=== PATIENT | male | born 1945 | race American Indian/Alaskan Native ===

== ENCOUNTER 2016-07-02 10:54 | Outpatient (CLI) | payer MEDICARE, OTHER ==
--- NOTE | 2016-07-03 10:45 | Ultrasound Report ---
ULTRASOUND RENAL BILATERAL: HISTORY: Renal insufficiency. FINDINGS: Compared to 03/04/16. The right kidney measures 10.0 cm. The left kidney measures 9.1 cm. There are bilateral simple renal cysts near mid pole measuring approximately 1 cm. No evidence for renal mass, calculus or hydronephrosis. The echotexture in both kidneys is echogenic, which is unchanged. The bladder is partially distended. A prominent prostate gland is noted. IMPRESSION: Findings consistent with medical renal disease or acute renal failure. Small bilateral renal cysts. No change since 03/04/16.
== END 2016-07-02 10:55 | disposition home or self-care (01) ==
LOC: US 10:54
PROVIDERS: ATTEND Urology
DX: D41.02 Neoplasm of uncertain behavior of left kidney (principal); N28.1 Cyst of kidney, acquired; N28.9 Disorder of kidney and ureter, unspecified; N32.89 Other specified disorders of bladder
CPT/HCPCS: 76770

== ENCOUNTER 2016-08-14 11:24 | Outpatient (CLI) | payer MEDICARE, OTHER ==
--- NOTE | 2016-08-14 12:54 | Ultrasound Report ---
RIGHT UPPER QUADRANT ULTRASOUND: HISTORY: Abnormal liver tests, right upper quadrant abdominal pain. Technique: Transabdominal ultrasound imaging with Doppler interrogation. FINDINGS: Multiple tiny gallstones are noted within the gallbladder. No evidence for wall thickening, pericholecystic fluid or distention. The CBD measures 2 mm. Images of the liver parenchyma, pancreas, right kidney and aorta are within normal limits. No perihepatic ascites. IMPRESSION: Cholelithiasis. No findings to suggest acute cholecystitis.
== END 2016-08-14 11:25 | disposition home or self-care (01) ==
LOC: US 11:24
PROVIDERS: ATTEND Internal Medicine Gastroenterology
DX: K80.20 Calculus of gallbladder without cholecystitis without obstruction (principal); R79.89 Other specified abnormal findings of blood chemistry
CPT/HCPCS: 76705

== ENCOUNTER 2017-05-12 09:12 | Outpatient (CLI) | payer MEDICARE, OTHER ==
--- NOTE | 2017-05-12 12:16 | Ultrasound Report ---
ULTRASOUND RENAL BILATERAL HISTORY: Renal cyst. TECHNIQUE: transabdominal ultrasound with color Doppler interrogation. FINDINGS: The right kidney measures 9.4 x 4.5 x 4.4cm. Right renal cortex: 1.1cm. The left kidney measures 9.2 x 6.0 x 4.8cm. Left renal cortex: 1.3cm. The kidneys are normal size, contour and position. There is increased renal parenchymal echotexture bilaterally. Corticomedullary differentiation is preserved. A solitary 1.2 cm simple cyst is noted in the superior right kidney. This has increased from 9 mm on the previous exam. A 1 cm simple cyst in the mid left kidney is unchanged. No evidence for nephrolithiasis, mass, hydronephrosis or perinephric fluid. The views of the bladder and the region of the ureters appear normal. IMPRESSION: Renal parenchymal disease. Simple bilateral renal cysts as described.
== END 2017-05-12 09:13 | disposition home or self-care (01) ==
LOC: US 09:12
PROVIDERS: ATTEND Urology
DX: Q61.00 Congenital renal cyst, unspecified (principal); N28.9 Disorder of kidney and ureter, unspecified
CPT/HCPCS: 76770

== ENCOUNTER 2018-07-22 01:40 | Inpatient (IN) | payer MEDICARE, OTHER ==
[2018-07-22] MEDS ORDERED: ASPIRIN PO ONE (01:46)
[2018-07-22] MEDS ORDERED: TRIDIL DRIP 50MG/250ML 50 MG/250 ML BOTTLE IV SCH (02:00)
[2018-07-22 02:03] LABS: Basophils # (Auto) 0.1 K/mm3 (0.0-0.1); Basophils % (Auto) 0.7 % (0.0-1.8); Eosinophils # (Auto) 0.2 K/mm3 (0.0-0.4); Eosinophils % (Auto) 2.1 % (0.0-4.3); Hemoglobin 14.8 gm/dl (11.8-15.2); Lymphocytes # (Auto) 3.7 K/mm3 (1.2-5.4); Lymphocytes % (Auto) 42.7 % (13.4-35.0); Mean Corpuscular HGB Conc 33 % (32-34); Mean Corpuscular Volume 93 fl (84-94); Monocytes # (Auto) 0.5 K/mm3 (0.0-0.8); Monocytes % (Auto) 6.4 % (0.0-7.3); Platelet Count 241 K/mm3 (140-440); Red Blood Count 4.87 M/mm3 (3.65-5.03); Red Cell Distribution Width 14.1 % (13.2-15.2)
[2018-07-22 02:13] LABS: INR 0.99 (0.87-1.13)
--- NOTE | 2018-07-22 02:15 | Emergency Department Report ---
ED General Adult HPI - General Chief complaint: Dyspnea/Respdistress Stated complaint: FIDEL Time Seen by Provider: 07/22/18 01:47 Source: patient, family, EMS (verbal report received from EMS.ems notes not available at time of chart dictation), RN notes reviewed, old records reviewed Mode of arrival: Stretcher Limitations: No Limitations, Physical Limitation - History of Present Illness Initial comments: Primary care Dr.: Dr Looney Cardiology: Dr Harrison Nephrology: Dr Richmond Past medical history: Hypertension, pacemaker, atrial fibrillation, on eliquis CK D stage III This is a 72-year-old gentleman who was brought to the hospital by emergency medical services for sudden onset painless shortness of breath after sexual intimacy. Prior to these symptoms, patient reports with his that he was in his usual state of health. Symptoms today included sudden shortness of breath, weakness and wheezing. No DVT or pulmonary embolus risk factors, and indicates compliance with systemic anticoagulation. EMS gave nebulizer therapy in the field, magnesium, and steroids, and initiated CPAP/BiPAP. Upon arrival to the ER, the patient has rales, JVD, is hypertensive to the 230s. He indicates that he is not having pain. He is started on BiPAP therapy, and given 2 g of nitroglycerin intravenously by myself. This, in combination with his BiPAP therapy, and nitroglycerin drip, she medically improved his symptoms. Currently, his blood pressure is in the 110s, and we are down titrating his nitroglycerin drip. He reports feeling much improved. Laboratory studies pending at this time. -: Sudden Consistency: constant Improves with: medication Worsens with: movement Associated Symptoms: cough, loss of appetite, malaise, weakness. denies: confusion, chest pain, diaphoresis, fever/chills, headaches, nausea/vomiting, rash, seizure, shortness of breath - Related Data Home Medications Medication Instructions Recorded Confirmed Last Taken Colchicine 0.5 mg PO BID 06/29/15 06/16/17 06/16/17 Dutasteride (Nf) [Avodart (Nf)] 0.5 mg PO QDAY 06/29/15 06/16/17 06/16/17 Allopurinol [Zyloprim] 100 mg PO QDAY 03/13/16 06/16/17 06/16/17 Ergocalciferol [Vitamin D2] 1 cap PO QWEEK 03/13/16 06/16/17 03/14/16 Apixaban [Eliquis] 5 mg PO DAILY 06/16/17 06/16/17 06/16/17 Cetirizine HCl [ZyrTEC] 10 mg PO DAILY PRN 06/16/17 06/16/17 Unknown Ezetimibe/Simvastatin (Nf) 1 tab PO QHS 06/16/17 06/16/17 06/15/17 [Vytorin 10-40 mg (Nf)] Previous Rx's Medication Instructions Recorded Last Taken Type Carvedilol [Coreg] 6.25 mg PO BID #60 tablet 06/30/15 06/16/17 Rx Allergies Allergy/AdvReac Type Severity Reaction Status Date / Time No Known Allergies Allergy Unverified 06/29/15 13:23 ED Review of Systems ROS: Stated complaint: FIDEL Other details as noted in HPI Comment: Unobtainable due to pts medical conditions Constitutional: denies: fever Respiratory: shortness of breath, wheezing Cardiovascular: denies: chest pain Gastrointestinal: denies: vomiting Genitourinary: denies: dysuria Musculoskeletal: denies: arthralgia Skin: denies: lesions Neurological: weakness ED Past Medical Hx - Past Medical History Hx Hypertension: Yes (EF 55-60%) Hx Heart Attack/AMI: No Hx Congestive Heart Failure: No Hx Diabetes: No Hx Renal Disease: Yes (CKD Stage 3 ) Hx Asthma: No Hx COPD: No Hx HIV: No - Surgical History Hx Pacemaker: Yes - Social History Smoking Status: Never Smoker Substance Use Type: None - Medications Home Medications: Home Medications Medication Instructions Recorded Confirmed Last Taken Type Colchicine 0.5 mg PO BID 06/29/15 06/16/17 06/16/17 History Dutasteride (Nf) [Avodart (Nf)] 0.5 mg PO QDAY 06/29/15 06/16/17 06/16/17 History Carvedilol [Coreg] 6.25 mg PO BID #60 tablet 06/30/15 06/16/17 06/16/17 Rx Allopurinol [Zyloprim] 100 mg PO QDAY 03/13/16 06/16/17 06/16/17 History Ergocalciferol [Vitamin D2] 1 cap PO QWEEK 03/13/16 06/16/17 03/14/16 History Apixaban [Eliquis] 5 mg PO DAILY 06/16/17 06/16/17 06/16/17 History Cetirizine HCl [ZyrTEC] 10 mg PO DAILY PRN 06/16/17 06/16/17 Unknown History Ezetimibe/Simvastatin (Nf) 1 tab PO QHS 06/16/17 06/16/17 06/15/17 History [Vytorin 10-40 mg (Nf)] ED Physical Exam - General Limitations: Physical Limitation General appearance: alert, in distress, obese - Head Head exam: Present: atraumatic, normocephalic - Eye Eye exam: Present: normal appearance, EOMI - ENT ENT exam: Present: normal exam, normal orophraynx, mucous membranes moist - Neck Neck exam: Present: normal inspection, full ROM, other (bilateral 6 cm jugular venous distention is noted bilaterally.). Absent: tenderness, meningismus - Respiratory Respiratory exam: Present: respiratory distress, rales - Cardiovascular Cardiovascular Exam: Present: regular rate, normal rhythm, normal heart sounds. Absent: bradycardia, tachycardia, irregular rhythm, systolic murmur, diastolic murmur, rubs, gallop - GI/Abdominal GI/Abdominal exam: Present: soft. Absent: distended, tenderness, guarding, rebound, rigid, pulsatile mass - Rectal Rectal exam: Present: deferred - Extremities Exam Extremities exam: Present: normal inspection, full ROM, other (2+ pulses noted in the bilateral upper, lower extremities. Compartments soft. No long bony tenderness. The pelvis is stable.). Absent: calf tenderness - Back Exam Back exam: Present: normal inspection, full ROM. Absent: tenderness, CVA tenderness (R), paraspinal tenderness, vertebral tenderness - Neurological Exam Neurological exam: Present: alert, other (Extraocular movements intact. Tongue midline. No facial droop. Facial sensation intact to light touch in the V1, V2, V3 distribution bilaterally. 5 and 5 strength in 4 extremities.. Sensation is intact to light touch in 4 extremities.). Absent: motor sensory deficit - Psychiatric Psychiatric exam: Present: normal affect, normal mood - Skin Skin exam: Present: warm, dry, intact, normal color. Absent: rash ED Course Vital Signs 07/22/18 07/22/18 07/22/18 02:01 02:09 02:12 Pulse Rate 70 69 71 Respiratory 29 H 18 24 Rate Blood Pressure 110/77 111/84 Blood Pressure 111/84 [Right] O2 Sat by Pulse 93 95 94 Oximetry - Reevaluation(s) Reevaluation #1: 07/22/18 02:17 Differential diagnosis, including not limited to: Azotemia, uremia, flash pulmonary edema Assessment and plan: 72-year-old gentleman with sudden onset presumed flash p ulmonary edema after intimate activity, most likely sympathetically mediated. Much improved on BiPAP therapy and nitroglycerin. We are down titrating his nitroglycerin, screening laboratory studies pending, and he will be admitted to the medical service once his laboratory studies have resulted. Reevaluation #2: 07/22/18 02:25 Dr. Herring to admit the patient to the medical service. ED Medical Decision Making - Lab Data Result diagrams: 07/22/18 01:52 07/22/18 01:52 Vital Signs 07/22/18 07/22/18 02:01 02:12 Pulse Rate 70 71 Respiratory 29 H 24 Rate Blood Pressure 110/77 Blood Pressure 111/84 [Right] O2 Sat by Pulse 93 94 Oximetry Lab Results 07/22/18 07/22/18 Range/Units 01:52 01:52 WBC 8.5 (4.5-11.0) K/mm3 RBC 4.87 (3.65-5.03) M/mm3 Hgb 14.8 (11.8-15.2) gm/dl Hct 45.0 (35.5-45.6) % MCV 93 (84-94) fl MCH 30 (28-32) pg MCHC 33 (32-34) % RDW 14.1 (13.2-15.2) % Plt Count 241 (140-440) K/mm3 Lymph % (Auto) 42.7 H (13.4-35.0) % Rooks % (Auto) 6.4 (0.0-7.3) % Eos % (Auto) 2.1 (0.0-4.3) % Baso % (Auto) 0.7 (0.0-1.8) % Lymph # 3.7 (1.2-5.4) K/mm3 Rooks # 0.5 (0.0-0.8) K/mm3 Eos # 0.2 (0.0-0.4) K/mm3 Baso # 0.1 (0.0-0.1) K/mm3 Seg Neutrophils % 48.1 (40.0-70.0) % Seg Neutrophils # 4.1 (1.8-7.7) K/mm3 PT 13.7 (12.2-14.9) Sec. INR 0.99 (0.87-1.13) APTT 23.0 L (24.2-36.6) Sec. - EKG Data -: EKG Interpreted by Me - EKG Data 07/22/18 02:16 Ventricular paced rhythm, good capture, left axis deviation, QTC prolonged, not having chest pain, not consistent with ST elevation myocardial infarction, 96 bp m. Appears unchanged from prior from 2018. - Radiology Data Radiology results: image reviewed interpreted by me: X-ray of the chest shows left-sided ventricular pacer, and flash pulmonary edema. Critical Care Time: Yes Critical care time in (mins) excluding proc time.: 45 Critical care attestation.: If time is entered above; I have spent that time in minutes in the direct care of this critically ill patient, excluding procedure time. ED Disposition Clinical Impression: Flash pulmonary edema Disposition: -09 OP ADMIT IP TO THIS HOSP Is pt being admited?: Yes Condition: Critical Instructions: Pulmonary Edema (ED)
[2018-07-22 02:21] LABS: Calcium 8.9 mg/dL (8.4-10.2)
[2018-07-22] MEDS ORDERED: LASIX IV ONE (02:25)
--- NOTE | 2018-07-22 02:33 | XRay Report ---
FINAL REPORT EXAM: XR CHEST 1V AP HISTORY: cortez/ cp TECHNIQUE: A portable upright view the chest was obtained and compared to the study of 06/16/2017. FINDINGS: The heart size is normal. Mild congestion cannot be excluded. There is extensive patchy airspace dise ase throughout the left lung as well as in the right lung base. There is a pacemaker overlying the le ft chest wall with the leads in the right atrium and right ventricle. The skeletal structures do not show any acute changes. IMPRESSION: Findings compatible either with bilateral pneumonia versus asymmetric pulmonary edema.
[2018-07-22] MEDS ORDERED: ZOFRAN IV PRN (04:23)
[2018-07-22] MEDS ORDERED: SODIUM CHLORIDE FLUSH SYRINGE 10 ML IV PRN (04:23)
--- NOTE | 2018-07-22 04:23 | History and Physical Report ---
History of Present Illness Date of examination: 07/22/18 History of present illness: 72-year-old man history of hypertension, chronic kidney disease, BPH, gout was brought to the emergency room for acute onset of shortness of breath after intimacy. He was found to be hypertensive in the emergency room with systolic blood pressure greater than 250s, respiratory distress, he was placed on BiPAP and started on nitroglycerin drip and given IV Lasix. He improved significantly and was transitioned from BiPAP to nasal cannula Review of systems Constitutional: no weight loss, chills, fever Ears, eyes, nose, mouth and throat: no nasal congestion, no nasal discharge, no sinus pressure, no vision change, no red eye. Neck: No neck pain or rigidity. Cardiovascular: no palpitations, chest pain Respiratory: no cough, +shortness of breath Gastrointestinal: no hematochezia, abdominal pain Genitourinary : no frequency , no hematuria Musculoskeletal: no joint swelling or muscle ache Integumentary: no rash, no pruritis Neurological: no parathesias, no focal weakness Endocrine: no cold or heat intolerance, no polyuria or polydipsia Hematologic/Lymphatic: no easy bruising, no easy bleeding, no gland swelling Allergic/Immunologic: no urticaria, no angioedema. PAST MEDICAL HISTORY: hypertension, chronic kidney disease, BPH, gout PAST SURGICAL HISTORY: Pacemaker SOCIAL HISTORY: Denies alcohol, drugs, tobacco FAMILY HISTORY: Hypertension Medications and Allergies Allergies Allergy/AdvReac Type Severity Reaction Status Date / Time No Known Allergies Allergy Unverified 06/29/15 13:23 Home Medications Medication Instructions Recorded Confirmed Last Taken Type Colchicine 0.5 mg PO BID 06/29/15 06/16/17 06/16/17 History Dutasteride (Nf) [Avodart (Nf)] 0.5 mg PO QDAY 06/29/15 06/16/17 06/16/17 History Carvedilol [Coreg] 6.25 mg PO BID #60 tablet 06/30/15 06/16/17 06/16/17 Rx Allopurinol [Zyloprim] 100 mg PO QDAY 03/13/16 06/16/17 06/16/17 History Ergocalciferol [Vitamin D2] 1 cap PO QWEEK 03/13/16 06/16/17 03/14/16 History Apixaban [Eliquis] 5 mg PO DAILY 06/16/17 06/16/17 06/16/17 History Cetirizine HCl [ZyrTEC] 10 mg PO DAILY PRN 06/16/17 06/16/17 Unknown History Ezetimibe/Simvastatin (Nf) 1 tab PO QHS 06/16/17 06/16/17 06/15/17 History [Vytorin 10-40 mg (Nf)] Active Meds: Active Medications Nitroglycerin/Dextrose (Tridil Drip 50mg/250ml) 50 mg in 250 mls @ 3 mls/hr IV TITR IVÁN; Protocol Last Admin: 07/22/18 02:07 Dose: 80 mcg/min, 24 mls/hr Documented by: Exam - Physical Exam Narrative exam: General Apperance: The patient lying in bed, breathing comfortable HEENT: Normocephalic, atraumatic. Pupils equally round and reactive to light, EOMI, no sclericterus or JVD or thyromegaly or nodule, no carotid bruit, mucous membranes moist, no exudate or erythema Heart: S1-S2, regular is rhythm Lungs: Crackles bilaterally, breathing comfortable Abdomen: Positive bowel sounds, soft, nontender, nondistended, no organomegaly Extremities: No edema cyanosis clubbing Skin: no rash, nodule, warm and dry Neuro: cranial nerves 2-12 intact, speech is fluent, motor/sensory intact - Constitutional Vitals: Temp Pulse Resp BP Pulse Ox 60 16 157/82 97 07/22/18 04:15 07/22/18 04:15 07/22/18 04:15 07/22/18 04:15 Results - Labs CBC & Chem 7: 07/22/18 01:52 07/22/18 01:52 Labs: Abnormal lab results 07/22/18 07/22/18 07/22/18 Range/Units 01:52 01:52 01:52 Lymph % (Auto) 42.7 H (13.4-35.0) % APTT 23.0 L (24.2-36.6) Sec. Sodium 136 L (137-145) mmol/L Carbon Dioxide 21 L (22-30) mmol/L Glucose 256 H (75-100) mg/dL Magnesium (1.7-2.3) mg/dL 07/22/18 Range/Units 01:52 Lymph % (Auto) (13.4-35.0) % APTT (24.2-36.6) Sec. Sodium (137-145) mmol/L Carbon Dioxide (22-30) mmol/L Glucose (75-100) mg/dL Magnesium 2.80 H (1.7-2.3) mg/dL - Imaging and Cardiology Chest x-ray: report reviewed Assessment and Plan Assessment Hypertensive urgency, malignant Flash pulmonary edema chronic kidney disease BPH gout Plan Admit to medicine Continue nitroglycerin drip, start IV Lasix Check cardiac enzymes, echo, consult cardiology Monitor I's and O's, daily weights DVT prophylaxis
[2018-07-22 05:24] LABS: Creatine Kinase MB 5.1 ng/mL (0.0-4.0)
[2018-07-22] MEDS ORDERED: LASIX IV SCH (06:00)
[2018-07-22] MEDS ORDERED: LASIX ONE (06:26)
[2018-07-22] MEDS ORDERED: ASPIRIN ONE (06:52)
[2018-07-22] MEDS ORDERED: COREG ONE (09:28)
[2018-07-22] MEDS ORDERED: COLCHICINE ONE (09:28)
[2018-07-22] MEDS: APRESOLINE PO SCH ×2 (09:32→13:29)
[2018-07-22] MEDS: COLCHICINE PO SCH (09:32)
[2018-07-22] MEDS ORDERED: COREG PO SCH ×2 (10:00→14:48)
[2018-07-22] MEDS ORDERED: DUTASTERIDE 0.5 MG PO SCH (10:00)
[2018-07-22] MEDS ORDERED: LOVENOX SUB-Q SCH ×2 (10:00)
[2018-07-22] MEDS ORDERED: ELIQUIS PO SCH (10:00)
[2018-07-22] MEDS ORDERED: COLCHICINE PO SCH (10:00)
[2018-07-22 11:09] LABS: Creatine Kinase MB 5.3 ng/mL (0.0-4.0)
[2018-07-22] MEDS: SODIUM CHLORIDE FLUSH SYRINGE 10 ML IV SCH ×2 (12:15→22:07)
--- NOTE | 2018-07-22 12:55 | Consultation ---
<RADHA AGUILAR - Last Filed: 07/22/18 13:09> History of Present Illness Consult date: 07/22/18 Requesting physician: ROS GALEANO Consult reason: congestive heart failure History of present illness: The pt is a 72YO male with a past medical history of HTN, HLP, PPM, atrial fibrillation, anticoagulated with Eliquis, , gout, renal insufficiency. He is followed in our office by Dr. Harrison. He presented with complaints of SOB. CXR c/w pulmonary edema. BPs significantly elevated on admission and thus he was initiated on nitro gtt. He denies any chest pain, palpitations, n/v, diaphoresis, dizziness or syncope. Echo done 07/2017 showed EF 50-55%, grade 1 diastolic dysfunction, minimal MR, mild AR, mod TR, RVSP 42mmHg. PET MPI done 01/2018 was negative for ischemia, EF 47% at rest and 52% stress. Past History Past Medical History: atrial fib, hypertension, hyperlipidemia Past Surgical History: Other (PPM) Medications and Allergies Allergies Allergy/AdvReac Type Severity Reaction Status Date / Time No Known Allergies Allergy Unverified 06/29/15 13:23 Home Medications Medication Instructions Recorded Confirmed Last Taken Type Dutasteride (Nf) [Avodart (Nf)] 0.5 mg PO QDAY 06/29/15 07/22/18 06/16/17 History Carvedilol [Coreg] 6.25 mg PO BID #60 tablet 06/30/15 07/22/18 06/16/17 Rx Apixaban [Eliquis] 5 mg PO Q12H 06/16/17 07/22/18 06/16/17 History Alfuzosin HCl [Alfuzosin HCl ER] 10 mg PO QDAY 07/22/18 07/22/18 Unknown History Mirtazapine 7.5 mg PO HS 07/22/18 07/22/18 Unknown History Active Meds: Active Medications Acetaminophen (Tylenol) 650 mg PO Q4H PRN PRN Reason: Pain MILD(1-3)/Fever >100.5/[facility]OS Allopurinol (Zyloprim) 100 mg PO QDAY [facility] Apixaban (Eliquis) 5 mg PO DAILY [facility]; Protocol Last Admin: 07/22/18 11:28 Dose: 5 mg Documented by: Carvedilol (Coreg) 6.25 mg PO BID [facility] Last Admin: 07/22/18 09:32 Dose: 6.25 mg Documented by: Colchicine (Colchicine) 0.6 mg PO BID [facility] Last Admin: 07/22/18 09:32 Dose: 0.6 mg Documented by: Ezetimibe (Zetia) 10 mg PO QHS [facility] Ergocalciferol (Vitamin D2) 50,000 unit PO Mo [facility] Furosemide (Lasix) 40 mg IV DAILY [facility] Hydralazine HCl (Apresoline) 50 mg PO Q8HR [facility] Last Admin: 07/22/18 09:32 Dose: 50 mg Documented by: Nitroglycerin/Dextrose (Tridil Drip 50mg/250ml) 50 mg in 250 mls @ 3 mls/hr IV TITR [facility]; Protocol Last Admin: 07/22/18 02:07 Dose: 80 mcg/min, 24 mls/hr Documented by: Miscellaneous Medication (Dutasteride (Nf)) 0.5 mg PO QDAY [facility] Ondansetron HCl (Zofran) 4 mg IV Q8H PRN PRN Reason: Nausea And Vomiting Pravastatin Sodium (Pravachol) 80 mg PO QHS [facility] Sodium Chloride (Sodium Chloride Flush Syringe 10 Ml) 10 ml IV BID [facility] Last Admin: 07/22/18 12:15 Dose: 10 ml Documented by: Sodium Chloride (Sodium Chloride Flush Syringe 10 Ml) 10 ml IV PRN PRN PRN Reason: LINE FLUSH Review of Systems Constitutional: no weight loss, no weight gain, no fever, no chills, no sweats Ears, nose, mouth and throat: no ear pain, no nose pain, no sinus pressure, no sinus pain Cardiovascular: shortness of breath, high blood pressure, no chest pain, no palpitations, no rapid/irregular heart beat, no edema, no syncope, no lightheadedness, no leg edema Respiratory: shortness of breath, no cough, no congestion, no wheezing, no pain on inspiration Gastrointestinal: no abdominal pain, no nausea, no vomiting, no diarrhea, no constipation, no change in bowel habits Genitourinary Male: no dysuria, no hematuria, no flank pain, no discharge, no urinary frequency, no urinary hesitancy Musculoskeletal: no neck stiffness, no neck pain, no shooting arm pain, no arm numbness/tingling, no low back pain, no shooting leg pain Integumentary: no rash, no pruritis, no redness, no sores, no wounds Neurological: no head injury, no paralysis, no weakness, no parathesias, no numbness, no tingling, no seizures, no syncope Psychiatric: no anxiety Endocrine: no cold intolerance, no heat intolerance Hematologic/Lymphatic: no easy bruising, no easy bleeding Allergic/Immunologic: no urticaria, no wheezing Physical Examination Vital Signs Pulse 72 07/22/18 01:49 General appearance: no acute distress HEENT: Positive: PERRL, Normocephaly, Mucus Membranes Moist Neck: Positive: neck supple, trachea midline Cardiac: Positive: Reg Rate and Rhythm, S1/S2 Lungs: Positive: Decreased Breath Sounds, Rales Neuro: Positive: Grossly Intact Abdomen: Positive: Soft. Negative: Tender Skin: Negative: Rash, Wound Musculoskeletal: No Pain Extremities: Absent: edema Results 07/22/18 01:52 07/22/18 01:52 Cardiac Enzymes 07/22/18 07/22/18 Range/Units 04:40 10:31 CK-MB (CK-2) 5.1 H 5.3 H (0.0-4.0) ng/mL Coagulation 07/22/18 Range/Units 01:52 PT 13.7 (12.2-14.9) Sec. INR 0.99 (0.87-1.13) APTT 23.0 L (24.2-36.6) Sec. CBC 07/22/18 Range/Units 01:52 WBC 8.5 (4.5-11.0) K/mm3 RBC 4.87 (3.65-5.03) M/mm3 Hgb 14.8 (11.8-15.2) gm/dl Hct 45.0 (35.5-45.6) % Plt Count 241 (140-440) K/mm3 Lymph # 3.7 (1.2-5.4) K/mm3 Mccreary # 0.5 (0.0-0.8) K/mm3 Eos # 0.2 (0.0-0.4) K/mm3 Baso # 0.1 (0.0-0.1) K/mm3 Comprehensive Metabolic Panel 07/22/18 Range/Units 01:52 Sodium 136 L (137-145) mmol/L Potassium 4.2 (3.6-5.0) mmol/L Chloride 101.6 (98-107) mmol/L Carbon Dioxide 21 L (22-30) mmol/L BUN 20 (9-20) mg/dL Creatinine 1.5 (0.8-1.5) mg/dL Glucose 256 H (75-100) mg/dL Calcium 8.9 (8.4-10.2) mg/dL - Imaging and Cardiology Echo: pending, report reviewed (07/2017 showed EF 50-55%, grade 1 diastolic dysfunction, minimal MR, mild AR, mod TR, RVSP 42mmHg. ) EKG: report reviewed, image reviewed EKG interpretations - Telemetry EKG Rhythm: Paced Pacemaker: ventricular pacing w/capt Assessment and Plan Optimize BPs - initiate hydralazine and wean nitro gtt off. Pt may tx to telemetry once nitro gtt weaned off. Initiate IV lasix and monitor renal indices. Agree with all other present cardiac management. F/u echo. The patient has been seen in conjunction with Dr. Harrison who agrees with the assessment and plan of care. - Patient Problems (1) Acute heart failure with preserved ejection fraction Current Visit: Yes Status: Acute (2) Hypertensive urgency Current Visit: Yes Status: Acute (3) Renal insufficiency Current Visit: Yes Status: Acute (4) Atrial fibrillation Current Visit: Yes Status: Chronic (5) Cardiac pacemaker in situ Current Visit: Yes Status: Chronic (6) BPH (benign prostatic hyperplasia) Current Visit: Yes Status: Chronic Qualifiers: Lower urinary tract symptom presence: symptoms present Lower urinary tract symptom detail: urinary hesitancy Qualified Code(s): N40.1 - Benign prostatic hyperplasia with lower urinary tract symptoms; R39.11 - Hesitancy of micturition (7) HLD (hyperlipidemia) Current Visit: Yes Status: Chronic Qualifiers: Hyperlipidemia type: mixed hyperlipidemia Qualified Code(s): E78.2 - Mixed hyperlipidemia (8) Gout Current Visit: Yes Status: Chronic <PATEL HARRISON - Last Filed: 07/23/18 09:25> Medications and Allergies Active Meds: Active Medications Acetaminophen (Tylenol) 650 mg PO Q4H PRN PRN Reason: Pain MILD(1-3)/Fever >100.5/[facility]OS Allopurinol (Zyloprim) 100 mg PO QDAY IV[facility] Last Admin: 07/22/18 13:29 Dose: 100 mg Documented by: Amlodipine Besylate (Norvasc) 10 mg PO QDAY [facility] Last Admin: 07/22/18 15:11 Dose: 10 mg Documented by: Apixaban (Eliquis) 5 mg PO DAILY [facility]; Protocol Last Admin: 07/22/18 11:28 Dose: 5 mg Documented by: Carvedilol (Coreg) 25 mg PO BID [facility] Last Admin: 07/22/18 21:35 Dose: 25 mg Documented by: Colchicine (Colchicine) 0.6 mg PO BID [facility] Last Admin: 07/23/18 01:10 Dose: 0.6 mg Documented by: Ezetimibe (Zetia) 10 mg PO QHS [facility] Last Admin: 07/23/18 01:11 Dose: 10 mg Documented by: Ergocalciferol (Vitamin D2) 50,000 unit PO Mo [facility] Furosemide (Lasix) 40 mg IV DAILY [facility] Hydralazine HCl (Apresoline) 20 mg IV Q4HR PRN PRN Reason: Blood Pressure Last Admin: 07/23/18 01:07 Dose: 20 mg Documented by: Hydralazine HCl (Apresoline) 100 mg PO Q8HR [facility] Last Admin: 07/22/18 21:37 Dose: 100 mg Documented by: Miscellaneous Medication (Dutasteride (Nf)) 0.5 mg PO QDAY [facility] Last Admin: 07/22/18 13:01 Dose: Not Given Documented by: Ondansetron HCl (Zofran) 4 mg IV Q8H PRN PRN Reason: Nausea And Vomiting Pravastatin Sodium (Pravachol) 80 mg PO QHS [facility] Last Admin: 07/23/18 01:10 Dose: 80 mg Documented by: Sodium Chloride (Sodium Chloride Flush Syringe 10 Ml) 10 ml IV BID [facility] Last Admin: 07/22/18 22:07 Dose: 10 ml Documented by: Sodium Chloride (Sodium Chloride Flush Syringe 10 Ml) 10 ml IV PRN PRN PRN Reason: LINE FLUSH Last Admin: 07/23/18 01:17 Dose: 10 ml Documented by: Physical Examination Vital Signs Pulse 72 07/22/18 01:49 Results 07/23/18 04:06 07/23/18 04:06 Cardiac Enzymes 07/22/18 Range/Units 10:31 CK-MB (CK-2) 5.3 H (0.0-4.0) ng/mL CBC 07/23/18 Range/Units 04:06 WBC 11.7 H (4.5-11.0) K/mm3 RBC 5.41 H (3.65-5.03) M/mm3 Hgb 16.5 H (11.8-15.2) gm/dl Hct 50.1 H (35.5-45.6) % Plt Count 218 (140-440) K/mm3 Lymph # 1.3 (1.2-5.4) K/mm3 Mccreary # 1.2 H (0.0-0.8) K/mm3 Eos # 0.0 (0.0-0.4) K/mm3 Baso # 0.0 (0.0-0.1) K/mm3 Comprehensive Metabolic Panel 07/23/18 Range/Units 04:06 Sodium 135 L (137-145) mmol/L Potassium 4.6 (3.6-5.0) mmol/L Chloride 97.6 L (98-107) mmol/L Carbon Dioxide 21 L (22-30) mmol/L BUN 27 H (9-20) mg/dL Creatinine 1.7 H (0.8-1.5) mg/dL Glucose 125 H (75-100) mg/dL Calcium 9.2 (8.4-10.2) mg/dL
--- NOTE | 2018-07-22 13:22 | Consultation ---
History of Present Illness Consult date: 07/22/18 Requesting physician: ROS GALEANO History of present illness: 72-year-old man history of hypertension, chronic kidney disease, BPH, gout was brought to the emergency room for acute onset of shortness of breath after sex. He was found to be hypertensive in the emergency room with systolic blood pressure greater than 250s, respiratory distress, he was placed on BiPAP and started on nitroglycerin drip and given IV Lasix. He improved significantly and was transitioned from BiPAP to nasal cannula Review of systems Constitutional: no weight loss, chills, fever Ears, eyes, nose, mouth and throat: no nasal congestion, no nasal discharge, no sinus pressure, no vision change, no red eye. Neck: No neck pain or rigidity. Cardiovascular: no palpitations, chest pain Respiratory: no cough, +shortness of breath Gastrointestinal: no hematochezia, abdominal pain Genitourinary : no frequency , no hematuria Musculoskeletal: no joint swelling or muscle ache Integumentary: no rash, no pruritis Neurological: no parathesias, no focal weakness Endocrine: no cold or heat intolerance, no polyuria or polydipsia Hematologic/Lymphatic: no easy bruising, no easy bleeding, no gland swelling Allergic/Immunologic: no urticaria, no angioedema. PAST MEDICAL HISTORY: hypertension, chronic kidney disease, BPH, gout PAST SURGICAL HISTORY: Pacemaker SOCIAL HISTORY: Denies alcohol, drugs, tobacco FAMILY HISTORY: Hypertension Past History Past Medical History: atrial fib, hypertension, hyperlipidemia Past Surgical History: Other (PPM) Medications and Allergies Allergies Allergy/AdvReac Type Severity Reaction Status Date / Time No Known Allergies Allergy Unverified 06/29/15 13:23 Home Medications Medication Instructions Recorded Confirmed Last Taken Type Apixaban [Eliquis] 5 mg PO Q12H 06/16/17 07/22/18 06/16/17 History ALBUTEROL NEB's [Proventil 0.083% 2.5 mg IH TIDRT PRN nebu 07/27/18 Unknown Rx NEBS] Acetaminophen [Acetaminophen TAB] 650 mg PO Q4H PRN tablet 07/27/18 Unknown Rx Allopurinol [Zyloprim] 100 mg PO QDAY tablet 07/27/18 Unknown Rx Carvedilol [Coreg] 6.25 mg PO BID tablet 07/27/18 Unknown Rx Dutasteride (Nf) [Avodart (Nf)] 0.5 mg PO DAILY capsule 07/27/18 Unknown Rx LORazepam [Ativan INJ] 1 mg IV Q4H PRN vial 07/27/18 Unknown Rx Pravastatin [Pravachol] 80 mg PO QHS tablet 07/27/18 Unknown Rx QUEtiapine [SEROquel] 50 mg PO BID tablet 07/27/18 Unknown Rx amLODIPine [Norvasc] 10 mg PO QDAY tablet 07/27/18 Unknown Rx hydrALAZINE [Apresoline TAB] 75 mg PO Q8HR tablet 07/27/18 Unknown Rx Active Meds: Active Medications Acetaminophen (Tylenol) 650 mg PO Q4H PRN PRN Reason: Pain MILD(1-3)/Fever >100.5/[facility] Allopurinol (Zyloprim) 100 mg PO QDAY [facility] Apixaban (Eliquis) 5 mg PO DAILY [facility]; Protocol Last Admin: 07/22/18 11:28 Dose: 5 mg Documented by: Carvedilol (Coreg) 6.25 mg PO BID [facility] Last Admin: 07/22/18 09:32 Dose: 6.25 mg Documented by: Colchicine (Colchicine) 0.6 mg PO BID [facility] Last Admin: 07/22/18 09:32 Dose: 0.6 mg Documented by: Ezetimibe (Zetia) 10 mg PO QHS [facility] Ergocalciferol (Vitamin D2) 50,000 unit PO Mo IVÁN Furosemide (Lasix) 40 mg IV DAILY [facility] Hydralazine HCl (Apresoline) 50 mg PO Q8HR [facility] Last Admin: 07/22/18 09:32 Dose: 50 mg Documented by: Nitroglycerin/Dextrose (Tridil Drip 50mg/250ml) 50 mg in 250 mls @ 3 mls/hr IV TITR [facility]; Protocol Last Admin: 07/22/18 02:07 Dose: 80 mcg/min, 24 mls/hr Documented by: Miscellaneous Medication (Dutasteride (Nf)) 0.5 mg PO QDAY [facility] Last Admin: 07/22/18 13:01 Dose: Not Given Documented by: Ondansetron HCl (Zofran) 4 mg IV Q8H PRN PRN Reason: Nausea And Vomiting Pravastatin Sodium (Pravachol) 80 mg PO QHS [facility] Sodium Chloride (Sodium Chloride Flush Syringe 10 Ml) 10 ml IV BID [facility] Last Admin: 07/22/18 12:15 Dose: 10 ml Documented by: Sodium Chloride (Sodium Chloride Flush Syringe 10 Ml) 10 ml IV PRN PRN PRN Reason: LINE FLUSH Physical Examination Vital signs: Vital Signs Pulse 72 07/22/18 01:49 General appearance: no acute distress, on oxygen at 2L/min HEENT: Positive: PERRL, Normocephaly, Mucus Membranes Moist Neck: Positive: neck supple, trachea midline Cardiac: Positive: Reg Rate and Rhythm, S1/S2 Lungs: Positive: Decreased Breath Sounds, Rales Neuro: Positive: Grossly Intact Abdomen: Positive: Soft. Negative: Tender Skin: Negative: Rash, Wound Musculoskeletal: No Pain Extremities: Absent: edema Results - Laboratory Findings CBC and BMP: 07/24/18 05:20 07/25/18 05:37 PT/INR, D-dimer PT 13.7 Sec. (12.2-14.9) 07/22/18 01:52 INR 0.99 (0.87-1.13) 07/22/18 01:52 Abnormal lab findings: Abnormal Labs 07/22/18 07/22/18 07/22/18 01:52 01:52 01:52 Lymph % (Auto) 42.7 H APTT 23.0 L Sodium 136 L Carbon Dioxide 21 L Glucose 256 H Magnesium Total Creatine Kinase CK-MB (CK-2) 07/22/18 07/22/18 07/22/18 01:52 04:40 10:31 Lymph % (Auto) APTT Sodium Carbon Dioxide Glucose Magnesium 2.80 H Total Creatine Kinase 256 H 282 H CK-MB (CK-2) 5.1 H 5.3 H Assessment and Plan Hypertensive Emergency Acute / Flash Pulmonary Edema Possible occult Pneumonia Acute Hypoxemic Respiratory Failure LISBETH on CKD Acute Encephalopathy (Toxic Metabolic +/- Dementia element) Acute CHF exacerbation (HFrEF of 40%) Hyperglycemia HLD Atrial Fibrillation Gout BPH - weaned off Nitro drip, can down grade to IMCU - supplemental oxygen to keep O2 Sat's > 90% - prn BIPAP - bronchodilators with pulmonary hygiene per RT - give Coreg for BP, resume home anti-hypertensive medications - Empiric antibiotics fro possible pneumonia. De-escalate as indicated. Get procalcitonin and CRP to help guide ongoing need for antibiotics - CXR in am - follow electrolytes and correct as necessary - PT/OT - Stress ulcer prophylaxis, anticoagulated on Eliquis - glycemic control with accuchecks and SSI for target BG 140-180 mg/dL acutely -Cardiology consult Thank you for this consult. Discussed care plan with ED physician, RT and RN. Updated the patient and his at the bedside. Please do not hesitate to call with questions or concerns. Will follow
[2018-07-22] MEDS ORDERED: APRESOLINE ONE (13:28)
[2018-07-22] MEDS: ZYLOPRIM PO SCH (13:29)
[2018-07-22] MEDS ORDERED: APRESOLINE IV ONE (14:00)
--- NOTE | 2018-07-22 14:09 | Event Note ---
Date: 07/22/18 Pt downgraded to IMCU as per Critical Care Team request.
[2018-07-22] MEDS ORDERED: ATIVAN ONE ×3 (14:32→19:48)
[2018-07-22] MEDS ORDERED: ATIVAN IV ONE ×3 (14:43→19:50)
[2018-07-22] MEDS ORDERED: APRESOLINE IV PRN (14:47)
[2018-07-22] MEDS ORDERED: APRESOLINE PO SCH (14:48)
--- NOTE | 2018-07-22 14:52 | Event Note ---
Date: 07/22/18 Pt admitted today for hypertensive emergency with DBP of 135 and pul edema. Was initially placed on nitro drip which has been discontinued. We will start oral antihypertensives and continue when necessary IV hydralazine. Patient has been downgraded to med/surg floor on telemetry.
[2018-07-22] MEDS ORDERED: NORVASC ONE (15:09)
[2018-07-22] MEDS: NORVASC PO SCH (15:11)
[2018-07-22] MEDS ORDERED: BENADRYL ONE (19:47)
[2018-07-22] MEDS ORDERED: BENADRYL IV ONE (19:50)
[2018-07-22] MEDS ORDERED: NON-FORMULARY (Ezetimibe/Simvastatin (Nf) 1 TAB) PO SCH (22:00)
[2018-07-23] MEDS: PRAVACHOL PO SCH ×2 (01:10→21:17)
[2018-07-23] MEDS: COLCHICINE PO SCH ×3 (01:10→21:12)
[2018-07-23] MEDS: ZETIA PO SCH ×2 (01:11→21:13)
[2018-07-23 05:03] LABS: Basophils % (Auto) 0.1 % (0.0-1.8); Hematocrit 50.1 % (35.5-45.6); Hemoglobin 16.5 gm/dl (11.8-15.2); Lymphocytes # (Auto) 1.3 K/mm3 (1.2-5.4); Lymphocytes % (Auto) 10.8 % (13.4-35.0); Mean Corpuscular HGB Conc 33 % (32-34); Mean Corpuscular Volume 93 fl (84-94); Monocytes # (Auto) 1.2 K/mm3 (0.0-0.8); Monocytes % (Auto) 10.1 % (0.0-7.3); Platelet Count 218 K/mm3 (140-440); Red Blood Count 5.41 M/mm3 (3.65-5.03); Red Cell Distribution Width 14.6 % (13.2-15.2)
[2018-07-23 05:19] LABS: Calcium 9.2 mg/dL (8.4-10.2)
[2018-07-23] MEDS: ELIQUIS PO SCH ×2 (09:59→21:14)
[2018-07-23] MEDS: ZYLOPRIM PO SCH (09:59)
[2018-07-23] MEDS: NORVASC PO SCH (09:59)
[2018-07-23] MEDS ORDERED: LASIX IV SCH (10:00)
[2018-07-23] MEDS ORDERED: NACL 0.9% 1000 ML 1,000 ML IV SCH (10:00)
[2018-07-23] MEDS ORDERED: LEVAQUIN 750MG/150ML 750 MG/150 ML BAG IV SCH ×2 (10:00)
[2018-07-23] MEDS: SODIUM CHLORIDE FLUSH SYRINGE 10 ML IV SCH ×2 (10:02→21:18)
--- NOTE | 2018-07-23 10:03 | Progress Note ---
Assessment and Plan acute respiratory failure acute diastolic and systolic dsyfunction acute on chronic renal insufficiency htn urgency AMS possible encelpathy hyperlipidemia Atrial fib PPM rec: in view of mental status change will order blood cultures and u/a and cxr for signs of infection, stop lasix and order mild iv hydration in view of renal insufficency and cont bp control with present meds, discuss with hospitalist and at bedside. Subjective Date of service: 07/23/18 Principal diagnosis: sob Interval history: pt had elevated bp last night and altered mental status Objective Vital Signs Temp Pulse Resp BP Pulse Ox 07/23/18 08:00 100 07/23/18 07:50 62 15 126/65 99 07/23/18 07:40 66 21 126/65 99 07/23/18 07:30 55 L 16 126/65 99 07/23/18 07:20 57 L 16 126/65 99 07/23/18 07:10 58 L 18 126/65 99 07/23/18 07:00 59 L 17 126/65 99 07/23/18 06:50 58 L 18 131/69 99 07/23/18 06:40 73 25 H 131/69 99 07/23/18 06:30 67 16 131/69 99 07/23/18 06:20 64 17 131/69 99 07/23/18 06:10 58 L 19 131/69 100 07/23/18 06:00 57 L 17 131/69 99 07/23/18 05:50 59 L 15 124/64 99 07/23/18 05:40 59 L 18 124/64 99 07/23/18 05:30 62 17 124/64 100 07/23/18 05:20 60 17 124/64 99 07/23/18 05:10 61 17 124/64 99 07/23/18 05:00 60 16 124/64 99 07/23/18 04:50 65 20 122/66 99 07/23/18 04:40 66 16 122/66 98 07/23/18 04:30 65 17 122/66 98 07/23/18 04:20 70 18 122/66 98 07/23/18 04:10 71 20 122/66 99 07/23/18 04:00 72 19 122/66 99 07/23/18 03:50 74 18 143/78 98 07/23/18 03:40 77 17 143/78 98 02/21/19 03:30 80 18 143/78 98 07/23/18 03:20 96 H 28 H 143/78 98 07/23/18 03:10 101 H 28 H 143/78 98 07/23/18 03:00 88 21 139/86 98 07/23/18 02:50 85 28 H 139/86 99 07/23/18 02:40 84 16 139/86 97 07/23/18 02:30 85 21 139/86 98 07/23/18 02:20 87 24 139/86 98 07/23/18 02:10 100 H 21 193/98 98 07/23/18 02:00 86 27 H 193/98 97 07/23/18 01:50 87 25 H 193/98 97 07/23/18 01:40 89 27 H 193/98 97 07/23/18 01:30 88 26 H 193/98 97 07/23/18 01:20 86 28 H 193/98 97 07/23/18 01:10 84 22 195/158 97 07/23/18 01:07 86 195/158 07/23/18 01:00 82 27 H 202/113 97 07/23/18 00:50 83 26 H 202/113 97 07/23/18 00:40 84 23 202/113 96 07/23/18 00:30 83 23 202/113 93 07/23/18 00:20 85 24 202/113 95 07/23/18 00:10 84 16 202/113 96 07/23/18 00:00 82 19 193/93 95 07/22/18 23:50 83 25 H 193/93 96 07/22/18 23:40 85 21 165/119 97 07/22/18 23:30 87 25 H 165/119 95 07/22/18 23:00 99 07/22/18 22:00 83 07/22/18 21:37 90 143/90 07/22/18 21:35 90 143/90 07/22/18 21:30 99 07/22/18 17:16 77 26 H 115/62 07/22/18 17:00 79 28 H 179/100 07/22/18 16:46 92 H 29 H 179/100 07/22/18 16:30 99 H 31 H 179/100 07/22/18 16:16 107 H 24 179/100 97 07/22/18 16:00 99 H 19 181/106 97 07/22/18 15:45 98 H 23 181/106 97 07/22/18 15:31 94 H 22 181/106 98 07/22/18 15:15 89 17 181/106 99 07/22/18 15:01 80 19 186/106 97 07/22/18 14:45 85 14 186/106 96 07/22/18 14:31 88 28 H 186/106 98 07/22/18 14:15 72 29 H 186/106 97 07/22/18 14:01 76 25 H 186/106 97 07/22/18 13:54 98.1 F 07/22/18 13:45 79 26 H 186/106 98 07/22/18 13:31 82 21 180/95 98 07/22/18 13:15 81 19 180/95 96 07/22/18 13:00 81 20 180/95 95 07/22/18 12:45 196/126 97 07/22/18 12:30 169/90 97 07/22/18 12:15 196/126 91 07/22/18 12:01 104 H 24 157/94 97 07/22/18 11:45 81 11 L 189/96 98 07/22/18 11:30 77 18 189/96 96 07/22/18 11:25 189/108 98 07/22/18 10:31 157/94 93 07/22/18 10:15 66 13 163/83 99 07/22/18 10:00 69 20 163/83 98 - Physical Examination General: No Apparent Distress HEENT: Positive: PERRL, Normocephaly, Mucus Membranes Moist Neck: Positive: neck supple, trachea midline Cardiac: Positive: Reg Rate and Rhythm Lungs: Positive: clear to auscultation Neuro: Positive: Grossly Intact, Other (lethargic) Abdomen: Positive: Soft. Negative: Tender Skin: Negative: Rash, Wound Musculoskeletal: No Pain Extremities: Absent: edema - Labs and Meds Cardiac Enzymes 07/22/18 Range/Units 10:31 CK-MB (CK-2) 5.3 H (0.0-4.0) ng/mL CBC 07/23/18 Range/Units 04:06 WBC 11.7 H (4.5-11.0) K/mm3 RBC 5.41 H (3.65-5.03) M/mm3 Hgb 16.5 H (11.8-15.2) gm/dl Hct 50.1 H (35.5-45.6) % Plt Count 218 (140-440) K/mm3 Lymph # 1.3 (1.2-5.4) K/mm3 [place] # 1.2 H (0.0-0.8) K/mm3 Eos # 0.0 (0.0-0.4) K/mm3 Baso # 0.0 (0.0-0.1) K/mm3 Comprehensive Metabolic Panel 07/23/18 Range/Units 04:06 Sodium 135 L (137-145) mmol/L Potassium 4.6 (3.6-5.0) mmol/L Chloride 97.6 L (98-107) mmol/L Carbon Dioxide 21 L (22-30) mmol/L BUN 27 H (9-20) mg/dL Creatinine 1.7 H (0.8-1.5) mg/dL Glucose 125 H (75-100) mg/dL Calcium 9.2 (8.4-10.2) mg/dL - Imaging and Cardiology EKG: report reviewed, image reviewed Pharmacologic stress test: report reviewed (09/2017 negative cardiac pet ef 53%) Echo: pending, report reviewed (07/2017 showed EF 50-55%, grade 1 diastolic dysfunction, minimal MR, mild AR, mod TR, RVSP 42mmHg. ), other (07/23/2018 ef 45% septal hypokinesis , mild as and mild ai mild tr) - Telemetry EKG Rhythm: Paced Pacemaker: ventricular pacing w/capt
[2018-07-23] MEDS: COREG PO SCH ×2 (11:03→21:14)
[2018-07-23 11:15] LABS: Bilirubin,Urine NEG (Negative); Blood,Urine MOD (Negative); Color,Urine Yellow (Yellow); Urobilinogen,Urine < 2.0 mg/dL (<2.0)
--- NOTE | 2018-07-23 11:41 | Progress Note ---
Assessment and Plan Hypertensive Emergency Acute (? Flash) Pulmonary Edema Possible occult Pneumonia Acute Hypoxemic Respiratory Failure LISBETH on CKD Acute Encephalopathy (Toxic Metabolic +/- Dementia element) Acute CHF exacerbation (HFrEF of 40%) Hyperglycemia HLD Atrial Fibrillation Gout BPH - weaned off Nitro drip - continue supplemental oxygen t keep O2 Sat's > 90% - prn BIPAP - continue bronchodilators with pulmonary hygiene per RT - continue Coreg for BP & CMOP reasons - cardiology evaluation ongoing - continue empiric AB's - get CRP level to aid clinical decision making and AVB's de=-escalation - repeat CXR in am - follow electrolytes and correct as necessary - PT/OT - mobility protocol for pressure ulcer prophylaxis - GI prophylaxis - continue glycemic cotrol with accuchecks and SSI for target BG 140-180 mg/dL acutely - continue Eliquis for anticoagulation re: A-fib - continue Colchicine for Gout - continue other care per attending / other consultants ... re-evaluate in am & prn Subjective Date of service: 07/23/18 Principal diagnosis: HTNsive Emergency; Pulm Edema vs PNA; Acute Hypoxemic Resp Failure; LISBETH Interval history: Patient is seen today for: Hypertensive Emergency; Acute (? Flash) Pulmonary Edema; Possible occult Pneumonia; Acute Hypoxemic Respiratory Failure; LISBETH on CKD; Acute Encephalopathy (Toxic Metabolic +/- Dementia element); Acute CHF exacerbation (HFrEF of 40%) Seen and examined at bedside; 24hour events reviewed; nursing and respiratory care staff consulted; no adverse overnight events reported to me; resting peacefully in bed; family in room; remains on supplemental oxygen; no emesis or overt aspiration; he just received some sedation and is sleeping Objective Vital Signs - 12hr 07/22/18 07/23/18 07/23/18 23:50 00:00 00:10 Pulse Rate 83 82 84 Respiratory 25 H 19 16 Rate Blood Pressure 193/93 193/93 202/113 O2 Sat by Pulse 96 95 96 Oximetry 07/23/18 07/23/18 07/23/18 00:20 00:30 00:40 Pulse Rate 85 83 84 Respiratory 24 23 23 Rate Blood Pressure 202/113 202/113 202/113 O2 Sat by Pulse 95 93 96 Oximetry 07/23/18 07/23/18 07/23/18 00:50 01:00 01:07 Pulse Rate 83 82 86 Respiratory 26 H 27 H Rate Blood Pressure 202/113 202/113 195/158 O2 Sat by Pulse 97 97 Oximetry 07/23/18 07/23/18 07/23/18 01:10 01:20 01:30 Pulse Rate 84 86 88 Respiratory 22 28 H 26 H Rate Blood Pressure 195/158 193/98 193/98 O2 Sat by Pulse 97 97 97 Oximetry 07/23/18 07/23/18 07/23/18 01:40 01:50 02:00 Pulse Rate 89 87 86 Respiratory 27 H 25 H 27 H Rate Blood Pressure 193/98 193/98 193/98 O2 Sat by Pulse 97 97 97 Oximetry 07/23/18 07/23/18 07/23/18 02:10 02:20 02:30 Pulse Rate 100 H 87 85 Respiratory 21 24 21 Rate Blood Pressure 193/98 139/86 139/86 O2 Sat by Pulse 98 98 98 Oximetry 07/23/18 07/23/18 07/23/18 02:40 02:50 03:00 Pulse Rate 84 85 88 Respiratory 16 28 H 21 Rate Blood Pressure 139/86 139/86 139/86 O2 Sat by Pulse 97 99 98 Oximetry 07/23/18 07/23/18 07/23/18 03:10 03:20 03:30 Pulse Rate 101 H 96 H 80 Respiratory 28 H 28 H 18 Rate Blood Pressure 143/78 143/78 143/78 O2 Sat by Pulse 98 98 98 Oximetry 07/23/18 07/23/18 07/23/18 03:40 03:50 04:00 Pulse Rate 77 74 72 Respiratory 17 18 19 Rate Blood Pressure 143/78 143/78 122/66 O2 Sat by Pulse 98 98 99 Oximetry 07/23/18 07/23/18 07/23/18 04:10 04:20 04:30 Pulse Rate 71 70 65 Respiratory 20 18 17 Rate Blood Pressure 122/66 122/66 122/66 O2 Sat by Pulse 99 98 98 Oximetry 07/23/18 07/23/18 07/23/18 04:40 04:50 05:00 Pulse Rate 66 65 60 Respiratory 16 20 16 Rate Blood Pressure 122/66 122/66 124/64 O2 Sat by Pulse 98 99 99 Oximetry 07/23/18 07/23/18 07/23/18 05:10 05:20 05:30 Pulse Rate 61 60 62 Respiratory 17 17 17 Rate Blood Pressure 124/64 124/64 124/64 O2 Sat by Pulse 99 99 100 Oximetry 07/23/18 07/23/18 07/23/18 05:40 05:50 06:00 Pulse Rate 59 L 59 L 57 L Respiratory 18 15 17 Rate Blood Pressure 124/64 124/64 131/69 O2 Sat by Pulse 99 99 99 Oximetry 07/23/18 07/23/18 07/23/18 06:10 06:20 06:30 Pulse Rate 58 L 64 67 Respiratory 19 17 16 Rate Blood Pressure 131/69 131/69 131/69 O2 Sat by Pulse 100 99 99 Oximetry 07/23/18 07/23/18 07/23/18 06:40 06:50 07:00 Pulse Rate 73 58 L 59 L Respiratory 25 H 18 17 Rate Blood Pressure 131/69 131/69 126/65 O2 Sat by Pulse 99 99 99 Oximetry 07/23/18 07/23/18 07/23/18 07:10 07:20 07:30 Pulse Rate 58 L 57 L 55 L Respiratory 18 16 16 Rate Blood Pressure 126/65 126/65 126/65 O2 Sat by Pulse 99 99 99 Oximetry 07/23/18 07/23/18 07/23/18 07:40 07:50 08:00 Pulse Rate 66 62 Respiratory 21 15 Rate Blood Pressure 126/65 126/65 O2 Sat by Pulse 99 99 100 Oximetry 07/23/18 07/23/18 07/23/18 09:59 10:00 11:03 Pulse Rate 63 57 L 69 Respiratory Rate Blood Pressure 138/72 136/74 O2 Sat by Pulse 99 Oximetry Constitutional: no acute distress, other (elderly AAM, normocephalic and atraumatic with normal respiratory effort at rest) Eyes: non-icteric ENT: oropharynx moist Neck: supple, no lymphadenopathy, no JVD Effort: normal Ascultation: Bilateral: diminished breath sounds, rhonchi Percussion: Bilateral: not dull Cardiovascular: irregular rhythm, murmur noted (ystolic) Gastrointestinal: normoactive bowel sounds, soft, non-tender, non-distended Integumentary: other (poor turgor) Extremities: no cyanosis, pulses normal, no ischemia or petechiae Neurologic: non-focal exam (grossly), pupils equal and round, CN II-XII normal Psychiatric: other (affect flat) CBC and BMP: 07/24/18 05:20 07/24/18 05:20 ABG, PT/INR, D-dimer: PT/INR, D-dimer PT 13.7 Sec. (12.2-14.9) 07/22/18 01:52 INR 0.99 (0.87-1.13) 07/22/18 01:52 Abnormal lab findings: Abnormal Labs 07/22/18 07/22/18 07/22/18 01:52 01:52 01:52 WBC RBC Hgb Hct Lymph % (Auto) 42.7 H [place] % (Auto) [place] # Seg Neutrophils % Seg Neutrophils # APTT 23.0 L Sodium 136 L Chloride Carbon Dioxide 21 L BUN Creatinine Glucose 256 H Magnesium Total Creatine Kinase CK-MB (CK-2) 07/22/18 07/22/18 07/22/18 01:52 04:40 10:31 WBC RBC Hgb Hct Lymph % (Auto) [place] % (Auto) [place] # Seg Neutrophils % Seg Neutrophils # APTT Sodium Chloride Carbon Dioxide BUN Creatinine Glucose Magnesium 2.80 H Total Creatine Kinase 256 H 282 H CK-MB (CK-2) 5.1 H 5.3 H 07/23/18 07/23/18 04:06 04:06 WBC 11.7 H RBC 5.41 H Hgb 16.5 H Hct 50.1 H Lymph % (Auto) 10.8 L [place] % (Auto) 10.1 H [place] # 1.2 H Seg Neutrophils % 79.0 H Seg Neutrophils # 9.3 H APTT Sodium 135 L Chloride 97.6 L Carbon Dioxide 21 L BUN 27 H Creatinine 1.7 H Glucose 125 H Magnesium Total Creatine Kinase CK-MB (CK-2) Chest x-ray: image reviewed (bilateral pulmonary infiltrates; pneumonia vs pulmonary edema) Allied health notes reviewed: nursing
--- NOTE | 2018-07-23 13:32 | Progress Note ---
Assessment and Plan Assessment and plan: Hypertensive emergency with DBP OF 135 -off nitro drip -BP improved -cont coreg, amlodipine and PRN hydralazine Bilateral PNA -On IV antibiotics -blood cultures pending Acute respiratory failure with hypoxia, present on admission -off BIPAP -cont 02 supplementation as needed and PRN duoneb Acute on CKD stage 2 -off Lasix, will monitor Acute on chronic diastolic and systolic HF -improved, off Lasix -Echo showed EF of 40-45% Acute metabolic encephalopathy -probable 2/2 acute infection, will monitor clinically -will consider CT head if no improvement Hypermagnesemia -resolved Hyperglycemia -will check hba1c level Hyperlipidemia, stable -cont home meds H/O Atrial fib -rate controlled -on anticoagulation with eliquis H/O sick sinus syndrome -s/p pacemaker placement BPH -cont home med gout -no acute flare-up -cont allopurinol Disp: pt's condition is guarded, cont tx in the IMCU TIME SPENT: 35 MINUTES History Interval history: Pt is having poor oral intake and confuse Hospitalist Physical - Constitutional Vitals: Temp Pulse Resp BP Pulse Ox 97.4 F L 60 17 145/78 100 07/23/18 12:00 07/23/18 11:50 07/23/18 11:50 07/23/18 11:50 07/23/18 12:00 General appearance: Present: no acute distress, other (ill-looking) - EENT Eyes: Present: PERRL, EOM intact - Neck Neck: Present: supple - Respiratory Respiratory effort: normal Respiratory: bilateral: CTA - Cardiovascular Rhythm: regular Heart Sounds: Present: S1 & S2 - Extremities Extremities: No edema - Abdominal General gastrointestinal: soft, non-tender, non-distended, normal bowel sounds - Neurologic Neurologic: other (alert but oriented to person only) Results - Labs CBC & Chem 7: 07/23/18 04:06 07/23/18 04:06 Labs: Laboratory Last Values WBC 11.7 K/mm3 (4.5-11.0) H 07/23/18 04:06 RBC 5.41 M/mm3 (3.65-5.03) H 07/23/18 04:06 Hgb 16.5 gm/dl (11.8-15.2) H 07/23/18 04:06 Hct 50.1 % (35.5-45.6) H 07/23/18 04:06 MCV 93 fl (84-94) 07/23/18 04:06 MCH 30 pg (28-32) 07/23/18 04:06 MCHC 33 % (32-34) 07/23/18 04:06 RDW 14.6 % (13.2-15.2) 07/23/18 04:06 Plt Count 218 K/mm3 (140-440) 07/23/18 04:06 Lymph % (Auto) 10.8 % (13.4-35.0) L 07/23/18 04:06 [place] % (Auto) 10.1 % (0.0-7.3) H 07/23/18 04:06 Eos % (Auto) 0.0 % (0.0-4.3) 07/23/18 04:06 Baso % (Auto) 0.1 % (0.0-1.8) 07/23/18 04:06 Lymph # 1.3 K/mm3 (1.2-5.4) 07/23/18 04:06 [place] # 1.2 K/mm3 (0.0-0.8) H 07/23/18 04:06 Eos # 0.0 K/mm3 (0.0-0.4) 07/23/18 04:06 Baso # 0.0 K/mm3 (0.0-0.1) 07/23/18 04:06 Seg Neutrophils % 79.0 % (40.0-70.0) H 07/23/18 04:06 Seg Neutrophils # 9.3 K/mm3 (1.8-7.7) H 07/23/18 04:06 PT 13.7 Sec. (12.2-14.9) 07/22/18 01:52 INR 0.99 (0.87-1.13) 07/22/18 01:52 APTT 23.0 Sec. (24.2-36.6) L 07/22/18 01:52 Sodium 135 mmol/L (137-145) L 07/23/18 04:06 Potassium 4.6 mmol/L (3.6-5.0) 07/23/18 04:06 Chloride 97.6 mmol/L (98-107) L 07/23/18 04:06 Carbon Dioxide 21 mmol/L (22-30) L 07/23/18 04:06 Anion Gap 21 mmol/L 07/23/18 04:06 BUN 27 mg/dL (9-20) H 07/23/18 04:06 Creatinine 1.7 mg/dL (0.8-1.5) H 07/23/18 04:06 Estimated GFR 48 ml/min 07/23/18 04:06 BUN/Creatinine Ratio 16 % 07/23/18 04:06 Glucose 125 mg/dL (75-100) H 07/23/18 04:06 Calcium 9.2 mg/dL (8.4-10.2) 07/23/18 04:06 Magnesium 2.30 mg/dL (1.7-2.3) 07/23/18 04:06 Total Creatine Kinase 282 units/L (55-170) H 07/22/18 10:31 CK-MB (CK-2) 5.3 ng/mL (0.0-4.0) H 07/22/18 10:31 CK-MB (CK-2) Rel Index 1.8 (0-4) 07/22/18 10:31 Troponin T 0.018 ng/mL (0.00-0.029) 07/22/18 10:31 Urine Color Yellow (Yellow) 07/23/18 11:00 Urine Turbidity Clear (Clear) 07/23/18 11:00 Urine pH 5.0 (5.0-7.0) 07/23/18 11:00 Ur Specific [place] 1.014 (1.003-1.030) 07/23/18 11:00 Urine Protein 100 mg/dl mg/dL (Negative) 07/23/18 11:00 Urine Glucose (UA) Neg mg/dL (Negative) 07/23/18 11:00 Urine Ketones Neg mg/dL (Negative) 07/23/18 11:00 Urine Blood Mod (Negative) 07/23/18 11:00 Urine Nitrite Neg (Negative) 07/23/18 11:00 Urine Bilirubin Neg (Negative) 07/23/18 11:00 Urine Urobilinogen < 2.0 mg/dL (<2.0) 07/23/18 11:00 Ur Leukocyte Esterase Neg (Negative) 07/23/18 11:00 Urine WBC (Auto) 2.0 /HPF (0.0-6.0) 07/23/18 11:00 Urine RBC (Auto) 19.0 /HPF (0.0-6.0) 07/23/18 11:00
[2018-07-23] MEDS ORDERED: APRESOLINE PO SCH (14:00)
[2018-07-23] MEDS: ROCEPHIN/NS 1 GM/50 ML 1 GM/50 ML BAG IV SCH (14:59)
--- NOTE | 2018-07-23 15:11 | Cat Scan Report ---
CT HEAD WITHOUT CONTRAST: HISTORY: Altered mental status. TECHNIQUE: Sequential CT images without contrast. FINDINGS: Images obtained show bilateral prominence of the sulci and ventricles. There are no abnormal intra- or extra-axial blood or fluid collections. There are no focal masses or evidence of mass effect. The hernandez white matter differentiation appears within normal limits. Regions of periventricular decreased attenuation are consistent with microangiopathic ischemic disease. The posterior fossa structures including the fourth ventricle, cerebellum, and brainstem appear normal. IMPRESSION: Evidence of atrophy and microangiopathic ischemic disease. No acute intracranial process noted.
[2018-07-23] MEDS ORDERED: DUONEB *Not for PRN Use IH SCH (16:00)
[2018-07-23] MEDS: DUONEB *Not for PRN Use IH SCH (19:27)
[2018-07-23] MEDS: TYLENOL PO PRN (21:19)
[2018-07-24 05:31] LABS: Basophils % (Auto) 0.3 % (0.0-1.8); Eosinophils # (Auto) 0.1 K/mm3 (0.0-0.4); Eosinophils % (Auto) 0.9 % (0.0-4.3); Hematocrit 43.4 % (35.5-45.6); Hemoglobin 14.5 gm/dl (11.8-15.2); Lymphocytes # (Auto) 1.9 K/mm3 (1.2-5.4); Lymphocytes % (Auto) 29.9 % (13.4-35.0); Mean Corpuscular HGB Conc 33 % (32-34); Mean Corpuscular Volume 91 fl (84-94); Monocytes # (Auto) 0.5 K/mm3 (0.0-0.8); Monocytes % (Auto) 8.2 % (0.0-7.3); Platelet Count 189 K/mm3 (140-440); Red Blood Count 4.75 M/mm3 (3.65-5.03); Red Cell Distribution Width 14.8 % (13.2-15.2)
[2018-07-24 06:42] LABS: Albumin 3.3 g/dL (3.9-5); Calcium 8.4 mg/dL (8.4-10.2)
[2018-07-24] MEDS: DUONEB *Not for PRN Use IH SCH ×2 (07:10→16:59)
--- NOTE | 2018-07-24 08:41 | Progress Note ---
Assessment and Plan acute respiratory failure acute diastolic and systolic dsyfunction acute on chronic renal insufficiency htn urgency AMS possible encelpathy hyperlipidemia Atrial fib PPM rec: so far u/s negative, pt is on antibiotics, renal function has not improved, hold diuretics and cont iv fluids, check am labs, pt has baseline mild renal insufficiency. followup cxr and blood culture pending. discuss with pt and daughter and plan and care. bp controlled with coreg and norvasc , discuss with nurse oob to ambulate, if stable may discharge tomorrow if stable Subjective Date of service: 07/24/18 Principal diagnosis: sob Interval history: pt is feeling better and mentation has improved Objective Vital Signs Temp Pulse Pulse Pulse Resp Resp BP 07/24/18 07:40 98.5 F 07/24/18 07:24 54 L 12 07/24/18 07:11 56 L 12 07/24/18 07:10 07/24/18 04:00 57 L 56 L 16 107/63 07/24/18 03:50 69 11 L 110/71 07/24/18 03:40 58 L 11 L 110/71 07/24/18 03:30 56 L 12 110/71 07/24/18 03:20 70 12 110/71 07/24/18 03:10 56 L 11 L 110/71 07/24/18 03:00 57 L 14 111/61 07/24/18 02:50 56 L 11 L 111/61 07/24/18 02:40 54 L 14 111/61 07/24/18 02:30 55 L 11 L 111/61 07/24/18 02:20 52 L 12 111/61 07/24/18 02:10 56 L 14 111/61 07/24/18 02:00 55 L 13 111/61 07/24/18 01:50 56 L 12 109/59 07/24/18 01:40 56 L 12 109/59 07/24/18 01:30 55 L 13 109/59 07/24/18 01:20 56 L 14 109/59 07/24/18 01:10 54 L 13 109/59 07/24/18 01:00 56 L 12 109/59 07/24/18 00:50 53 L 11 L 113/59 07/24/18 00:40 56 L 12 113/59 07/24/18 00:30 62 13 113/59 07/24/18 00:20 56 L 12 113/59 07/24/18 00:10 57 L 12 113/59 07/24/18 00:04 57 L 12 113/59 07/24/18 00:00 55 L 58 L 15 113/59 07/23/18 23:50 57 L 13 120/63 07/23/18 23:40 58 L 12 120/63 07/23/18 23:30 56 L 14 113/61 07/23/18 23:20 61 15 113/61 07/23/18 23:10 57 L 18 113/61 07/23/18 23:00 58 L 13 113/61 07/23/18 22:50 56 L 12 113/61 07/23/18 22:40 58 L 13 113/61 07/23/18 22:30 58 L 12 113/61 07/23/18 22:20 58 L 13 113/61 07/23/18 22:10 56 L 14 113/61 07/23/18 22:00 59 L 13 142/74 07/23/18 21:50 56 L 13 142/74 07/23/18 21:40 57 L 14 142/74 07/23/18 21:30 58 L 15 142/74 07/23/18 21:20 57 L 14 142/74 07/23/18 21:14 70 142/74 07/23/18 21:10 59 L 22 111/61 07/23/18 21:00 69 14 111/61 07/23/18 20:50 58 L 16 111/61 07/23/18 20:40 62 15 111/61 07/23/18 20:30 56 L 13 146/77 07/23/18 20:20 61 15 146/77 07/23/18 20:10 59 L 13 146/77 07/23/18 20:00 58 L 14 146/77 07/23/18 19:50 57 L 13 146/77 07/23/18 19:40 56 L 13 146/77 07/23/18 19:30 59 L 17 146/77 07/23/18 19:27 57 L 14 07/23/18 19:20 58 L 13 146/77 07/23/18 19:10 59 L 14 146/77 07/23/18 19:00 57 L 16 112/65 07/23/18 18:50 59 L 15 112/65 07/23/18 18:40 56 L 14 112/65 07/23/18 18:30 67 13 112/65 07/23/18 18:20 56 L 13 112/65 07/23/18 18:10 57 L 14 112/65 07/23/18 18:09 07/23/18 18:00 62 14 136/73 07/23/18 17:50 61 14 136/73 07/23/18 17:40 59 L 14 136/73 07/23/18 17:30 57 L 14 136/73 07/23/18 17:20 59 L 14 136/73 07/23/18 17:10 56 L 15 136/73 07/23/18 17:00 59 L 15 114/66 07/23/18 16:50 59 L 15 114/66 07/23/18 16:46 62 17 07/23/18 16:40 58 L 15 114/66 07/23/18 16:37 58 L 15 07/23/18 16:30 61 19 114/66 07/23/18 16:20 59 L 15 114/66 07/23/18 16:10 57 L 14 114/66 07/23/18 16:00 97.5 F L 59 L 15 114/66 07/23/18 15:50 58 L 14 135/84 07/23/18 15:40 67 14 135/84 07/23/18 15:30 56 L 14 135/84 07/23/18 15:20 65 14 131/71 07/23/18 15:10 57 L 16 131/71 07/23/18 15:00 56 L 17 131/73 07/23/18 14:50 62 16 131/73 07/23/18 14:20 62 22 135/84 07/23/18 14:10 62 19 135/84 07/23/18 14:00 63 19 135/84 07/23/18 13:50 57 L 14 120/72 07/23/18 13:40 65 15 120/72 07/23/18 13:30 59 L 16 120/72 07/23/18 13:20 59 L 14 120/72 07/23/18 13:10 59 L 14 120/72 07/23/18 13:00 59 L 15 120/72 07/23/18 12:50 57 L 16 128/73 07/23/18 12:40 58 L 15 128/73 07/23/18 12:30 59 L 16 128/73 07/23/18 12:20 56 L 15 128/73 07/23/18 12:10 59 L 14 128/73 07/23/18 12:00 97.5 F L 59 L 22 145/78 07/23/18 11:50 60 17 145/78 07/23/18 11:40 64 15 145/78 07/23/18 11:30 66 17 145/78 07/23/18 11:20 60 19 145/78 07/23/18 11:10 60 17 136/74 07/23/18 11:03 69 136/74 07/23/18 11:00 59 L 20 145/78 07/23/18 10:50 57 L 17 145/78 07/23/18 10:40 62 19 145/78 07/23/18 10:30 59 L 17 145/78 07/23/18 10:20 70 18 145/78 07/23/18 10:10 57 L 17 145/78 07/23/18 10:00 60 19 145/78 07/23/18 09:59 63 138/72 07/23/18 09:50 56 L 15 138/72 07/23/18 09:40 56 L 14 138/72 07/23/18 09:30 58 L 15 138/72 07/23/18 09:20 57 L 15 138/72 07/23/18 09:10 60 15 138/72 07/23/18 09:00 58 L 18 129/64 07/23/18 08:50 59 L 16 129/64 07/23/18 08:40 57 L 16 129/64 Pulse Ox 07/24/18 07:40 07/24/18 07:24 07/24/18 07:11 07/24/18 07:10 99 07/24/18 04:00 99 07/24/18 03:50 99 07/24/18 03:40 100 07/24/18 03:30 100 07/24/18 03:20 99 07/24/18 03:10 100 07/24/18 03:00 100 07/24/18 02:50 99 07/24/18 02:40 98 07/24/18 02:30 98 07/24/18 02:20 99 07/24/18 02:10 99 07/24/18 02:00 95 07/24/18 01:50 99 07/24/18 01:40 99 07/24/18 01:30 99 07/24/18 01:20 99 07/24/18 01:10 99 07/24/18 01:00 96 07/24/18 00:50 99 07/24/18 00:40 99 07/24/18 00:30 98 07/24/18 00:20 98 07/24/18 00:10 98 07/24/18 00:04 99 07/24/18 00:00 98 07/23/18 23:50 99 07/23/18 23:40 99 07/23/18 23:30 99 07/23/18 23:20 99 07/23/18 23:10 98 07/23/18 23:00 99 07/23/18 22:50 99 07/23/18 22:40 98 07/23/18 22:30 98 07/23/18 22:20 98 07/23/18 22:10 98 07/23/18 22:00 99 07/23/18 21:50 99 07/23/18 21:40 100 07/23/18 21:30 99 07/23/18 21:20 100 07/23/18 21:14 07/23/18 21:10 100 07/23/18 21:00 100 07/23/18 20:50 100 07/23/18 20:40 100 07/23/18 20:30 100 07/23/18 20:20 100 07/23/18 20:10 100 07/23/18 20:00 100 07/23/18 19:50 99 07/23/18 19:40 99 07/23/18 19:30 99 07/23/18 19:27 99 07/23/18 19:20 99 07/23/18 19:10 99 07/23/18 19:00 99 07/23/18 18:50 100 07/23/18 18:40 99 07/23/18 18:30 100 07/23/18 18:20 99 07/23/18 18:10 100 07/23/18 18:09 97 07/23/18 18:00 98 07/23/18 17:50 98 07/23/18 17:40 99 07/23/18 17:30 100 07/23/18 17:20 99 07/23/18 17:10 99 07/23/18 17:00 99 07/23/18 16:50 99 07/23/18 16:46 07/23/18 16:40 98 07/23/18 16:37 98 07/23/18 16:30 99 07/23/18 16:20 98 07/23/18 16:10 99 07/23/18 16:00 99 07/23/18 15:50 99 07/23/18 15:40 98 07/23/18 15:30 98 07/23/18 15:20 98 07/23/18 15:10 99 07/23/18 15:00 99 07/23/18 14:50 98 07/23/18 14:20 99 07/23/18 14:10 97 07/23/18 14:00 98 07/23/18 13:50 98 07/23/18 13:40 99 07/23/18 13:30 99 07/23/18 13:20 98 07/23/18 13:10 98 07/23/18 13:00 98 07/23/18 12:50 98 07/23/18 12:40 98 07/23/18 12:30 99 07/23/18 12:20 98 07/23/18 12:10 98 07/23/18 12:00 98 07/23/18 11:50 98 07/23/18 11:40 98 07/23/18 11:30 99 07/23/18 11:20 99 07/23/18 11:10 99 07/23/18 11:03 07/23/18 11:00 98 07/23/18 10:50 98 07/23/18 10:40 98 07/23/18 10:30 98 07/23/18 10:20 98 07/23/18 10:10 97 07/23/18 10:00 97 07/23/18 09:59 07/23/18 09:50 99 07/23/18 09:40 99 07/23/18 09:30 99 07/23/18 09:20 99 07/23/18 09:10 98 07/23/18 09:00 99 07/23/18 08:50 99 07/23/18 08:40 99 - Physical Examination General: No Apparent Distress HEENT: Positive: PERRL, Normocephaly, Mucus Membranes Moist Neck: Positive: neck supple, trachea midline Cardiac: Positive: Reg Rate and Rhythm Lungs: Positive: clear to auscultation Neuro: Positive: Grossly Intact, Other Abdomen: Positive: Soft. Negative: Tender Skin: Negative: Rash, Wound Musculoskeletal: No Pain Extremities: Absent: edema - Labs and Meds Cardiac Enzymes 07/24/18 Range/Units 05:20 AST 18 (5-40) units/L CBC 07/24/18 Range/Units 05:20 WBC 6.4 (4.5-11.0) K/mm3 RBC 4.75 (3.65-5.03) M/mm3 Hgb 14.5 (11.8-15.2) gm/dl Hct 43.4 D (35.5-45.6) % Plt Count 189 (140-440) K/mm3 Lymph # 1.9 (1.2-5.4) K/mm3 [place] # 0.5 (0.0-0.8) K/mm3 Eos # 0.1 (0.0-0.4) K/mm3 Baso # 0.0 (0.0-0.1) K/mm3 Comprehensive Metabolic Panel 07/24/18 Range/Units 05:20 Sodium 138 (137-145) mmol/L Potassium 4.3 (3.6-5.0) mmol/L Chloride 103.1 (98-107) mmol/L Carbon Dioxide 23 (22-30) mmol/L BUN 33 H (9-20) mg/dL Creatinine 1.8 H (0.8-1.5) mg/dL Glucose 97 (75-100) mg/dL Calcium 8.4 (8.4-10.2) mg/dL AST 18 (5-40) units/L ALT 17 (7-56) units/L Alkaline Phosphatase 83 (35-129) units/L Total Protein 6.9 (6.3-8.2) g/dL Albumin 3.3 L (3.9-5) g/dL - Imaging and Cardiology EKG: report reviewed, image reviewed Echo: pending, report reviewed (07/2017 showed EF 50-55%, grade 1 diastolic dysfunction, minimal MR, mild AR, mod TR, RVSP 42mmHg. ), other (07/23/2018 ef 45% septal hypokinesis , mild as and mild ai mild tr) - Telemetry EKG Rhythm: Paced Pacemaker: ventricular pacing w/capt
[2018-07-24] MEDS ORDERED: NACL 0.9% 1000 ML 1,000 ML IV SCH (09:00)
[2018-07-24] MEDS: AVODART PO SCH (10:14)
[2018-07-24] MEDS: COREG PO SCH ×2 (10:15→21:32)
[2018-07-24] MEDS: COLCHICINE PO SCH ×2 (10:15→21:32)
[2018-07-24] MEDS: ELIQUIS PO SCH ×2 (10:16→21:34)
[2018-07-24] MEDS: NORVASC PO SCH (10:17)
[2018-07-24] MEDS: ROCEPHIN/NS 1 GM/50 ML 1 GM/50 ML BAG IV SCH (10:17)
[2018-07-24] MEDS: SODIUM CHLORIDE FLUSH SYRINGE 10 ML IV SCH ×2 (10:18→21:36)
[2018-07-24] MEDS: ZITHROMAX 500 MG in NACL 0.9% 250ML 250 ML IV SCH (10:18)
[2018-07-24] MEDS: ZYLOPRIM PO SCH (10:18)
--- NOTE | 2018-07-24 11:20 | XRay Report ---
AP CHEST: HISTORY: Short of breath Bilateral infiltrates or pulmonary edema have resolved since 07/22/18. The lungs are clear. Normal heart and mediastinal structures. Pacemaker device remains in the same position. IMPRESSION: Unremarkable AP chest.
--- NOTE | 2018-07-24 13:36 | Progress Note ---
Assessment and Plan Assessment and plan: Hypertensive emergency with DBP OF 135 on admission -off nitro drip -BP controlled -cont coreg, amlodipine and PRN hydralazine Possible PNA -On IV antibiotics -blood cultures neg so far Acute respiratory failure with hypoxia, present on admission -off BIPAP -cont 02 supplementation as needed and PRN duoneb Acute on CKD stage 2 -off Lasix, IVF given -will cont to monitor Acute on chronic diastolic and systolic HF -improved, off Lasix -Echo showed EF of 40-45% Acute metabolic encephalopathy -probable 2/2 acute infection, improved -CT head neg Hypermagnesemia -resolved Hyperglycemia -hba1c:5.6 Hyperlipidemia, stable -cont home meds H/O Atrial fib -rate controlled -cont oral anticoagulation with eliquis H/O sick sinus syndrome -s/p pacemaker placement BPH -cont home med gout -no acute flare-up -cont allopurinol Disp: Pt's condition has improved, for possible d/c in am if clinically stable TIME SPENT: 35 MINUTES History Interval history: Patient reports feeling better today. Hospitalist Physical - Constitutional Vitals: Temp Pulse Resp BP Pulse Ox 98.2 F 59 L 15 125/68 100 07/24/18 11:23 07/24/18 12:00 07/24/18 12:00 07/24/18 11:00 07/24/18 12:00 General appearance: Present: no acute distress - EENT Eyes: Present: PERRL, EOM intact ENT: hearing intact, clear oral mucosa - Neck Neck: Present: supple - Respiratory Respiratory: bilateral: CTA - Cardiovascular Rhythm: regular Heart Sounds: Present: S1 & S2 - Extremities Extremities: No edema - Abdominal General gastrointestinal: soft, non-tender, non-distended, normal bowel sounds - Neurologic Neurologic: CNII-XII intact, other (alert and oriented to person and place) Results - Labs CBC & Chem 7: 07/24/18 05:20 07/24/18 05:20 Labs: Laboratory Last Values WBC 6.4 K/mm3 (4.5-11.0) 07/24/18 05:20 RBC 4.75 M/mm3 (3.65-5.03) 07/24/18 05:20 Hgb 14.5 gm/dl (11.8-15.2) 07/24/18 05:20 Hct 43.4 % (35.5-45.6) D 07/24/18 05:20 MCV 91 fl (84-94) 07/24/18 05:20 MCH 30 pg (28-32) 07/24/18 05:20 MCHC 33 % (32-34) 07/24/18 05:20 RDW 14.8 % (13.2-15.2) 07/24/18 05:20 Plt Count 189 K/mm3 (140-440) 07/24/18 05:20 Lymph % (Auto) 29.9 % (13.4-35.0) 07/24/18 05:20 [place] % (Auto) 8.2 % (0.0-7.3) H 07/24/18 05:20 Eos % (Auto) 0.9 % (0.0-4.3) 07/24/18 05:20 Baso % (Auto) 0.3 % (0.0-1.8) 07/24/18 05:20 Lymph # 1.9 K/mm3 (1.2-5.4) 07/24/18 05:20 [place] # 0.5 K/mm3 (0.0-0.8) 07/24/18 05:20 Eos # 0.1 K/mm3 (0.0-0.4) 07/24/18 05:20 Baso # 0.0 K/mm3 (0.0-0.1) 07/24/18 05:20 Seg Neutrophils % 60.7 % (40.0-70.0) 07/24/18 05:20 Seg Neutrophils # 3.9 K/mm3 (1.8-7.7) 07/24/18 05:20 PT 13.7 Sec. (12.2-14.9) 07/22/18 01:52 INR 0.99 (0.87-1.13) 07/22/18 01:52 APTT 23.0 Sec. (24.2-36.6) L 07/22/18 01:52 Sodium 138 mmol/L (137-145) 07/24/18 05:20 Potassium 4.3 mmol/L (3.6-5.0) 07/24/18 05:20 Chloride 103.1 mmol/L (98-107) 07/24/18 05:20 Carbon Dioxide 23 mmol/L (22-30) 07/24/18 05:20 Anion Gap 16 mmol/L 07/24/18 05:20 BUN 33 mg/dL (9-20) H 07/24/18 05:20 Creatinine 1.8 mg/dL (0.8-1.5) H 07/24/18 05:20 Estimated GFR 45 ml/min 07/24/18 05:20 BUN/Creatinine Ratio 18 % 07/24/18 05:20 Glucose 97 mg/dL (75-100) 07/24/18 05:20 Hemoglobin A1c 5.6 % (4-6) 07/24/18 05:20 Calcium 8.4 mg/dL (8.4-10.2) 07/24/18 05:20 Magnesium 2.30 mg/dL (1.7-2.3) 07/23/18 04:06 Total Bilirubin 0.60 mg/dL (0.1-1.2) 07/24/18 05:20 AST 18 units/L (5-40) 07/24/18 05:20 ALT 17 units/L (7-56) 07/24/18 05:20 Alkaline Phosphatase 83 units/L (35-129) 07/24/18 05:20 Total Creatine Kinase 282 units/L (55-170) H 07/22/18 10:31 CK-MB (CK-2) 5.3 ng/mL (0.0-4.0) H 07/22/18 10:31 CK-MB (CK-2) Rel Index 1.8 (0-4) 07/22/18 10:31 Troponin T 0.018 ng/mL (0.00-0.029) 07/22/18 10:31 Total Protein 6.9 g/dL (6.3-8.2) 07/24/18 05:20 Albumin 3.3 g/dL (3.9-5) L 07/24/18 05:20 Albumin/Globulin Ratio 0.9 % 07/24/18 05:20 Urine Color Yellow (Yellow) 07/23/18 11:00 Urine Turbidity Clear (Clear) 07/23/18 11:00 Urine pH 5.0 (5.0-7.0) 07/23/18 11:00 Ur Specific [place] 1.014 (1.003-1.030) 07/23/18 11:00 Urine Protein 100 mg/dl mg/dL (Negative) 07/23/18 11:00 Urine Glucose (UA) Neg mg/dL (Negative) 07/23/18 11:00 Urine Ketones Neg mg/dL (Negative) 07/23/18 11:00 Urine Blood Mod (Negative) 07/23/18 11:00 Urine Nitrite Neg (Negative) 07/23/18 11:00 Urine Bilirubin Neg (Negative) 07/23/18 11:00 Urine Urobilinogen < 2.0 mg/dL (<2.0) 07/23/18 11:00 Ur Leukocyte Esterase Neg (Negative) 07/23/18 11:00 Urine WBC (Auto) 2.0 /HPF (0.0-6.0) 07/23/18 11:00 Urine RBC (Auto) 19.0 /HPF (0.0-6.0) 07/23/18 11:00
[2018-07-24] MEDS ORDERED: PROVENTIL IH PRN (17:03)
--- NOTE | 2018-07-24 19:55 | Progress Note ---
Assessment and Plan Hypertensive Emergency Acute (? Flash) Pulmonary Edema Possible occult Pneumonia Acute Hypoxemic Respiratory Failure LISBETH on CKD Acute Encephalopathy (Toxic Metabolic +/- Dementia element) Acute CHF exacerbation (HFrEF of 40%) Hyperglycemia HLD Atrial Fibrillation Gout BPH - weaned off Nitro drip - continue supplemental oxygen to keep O2 Sat's > 90% - prn BIPAP at this point - continue bronchodilators with pulmonary hygiene per RT - continue Coreg for BP & CMOP reasons - cardiology evaluation ongoing - continue empiric AB's - get CRP level to aid clinical decision making and AB's de-escalation - repeat CXR reviewed and unremarkable - PT/OT - mobility protocol for pressure ulcer prophylaxis - GI prophylaxis - continue glycemic cotrol with accuchecks and SSI for target BG 140-180 mg/dL acutely - continue Eliquis for anticoagulation re: A-fib - continue Colchicine for Gout - continue other care per attending / other consultants ... re-evaluate in am & prn Subjective Date of service: 07/24/18 Principal diagnosis: HTNsive Emergency; Pulm Edema vs PNA; Acute Hypoxemic Resp Failure; LISBETH Interval history: Patient is seen today for: Hypertensive Emergency; Acute (? Flash) Pulmonary Edema; Possible occult Pneumonia; Acute Hypoxemic Respiratory Failure; LISBETH on CKD; Acute Encephalopathy (Toxic Metabolic +/- Dementia element); Acute CHF exacerbation (HFrEF of 40%) Seen and examined at bedside; 24hour events reviewed; nursing and respiratory care staff consulted; no adverse overnight events reported to me; resting peacefully in bed; feels better; No N/V/F/C; no chest pains or palpitations Objective Vital Signs - 12hr 07/24/18 07/24/18 07/24/18 08:00 09:00 10:00 Temperature Pulse Rate 56 L 50 L Pulse Rate [ 61 From Monitor] Respiratory 12 12 Rate Blood Pressure 114/62 115/65 123/61 O2 Sat by Pulse 99 99 98 Oximetry 07/24/18 07/24/18 07/24/18 10:15 10:17 11:00 Temperature Pulse Rate 60 57 L 57 L Pulse Rate [ From Monitor] Respiratory 14 Rate Blood Pressure 123/61 123/61 125/68 O2 Sat by Pulse 97 Oximetry 07/24/18 07/24/18 07/24/18 11:23 12:00 13:00 Temperature 98.2 F Pulse Rate 63 59 L Pulse Rate [ 59 L From Monitor] Respiratory 17 13 Rate Blood Pressure 128/76 127/70 O2 Sat by Pulse 99 99 Oximetry 07/24/18 07/24/18 07/24/18 14:00 15:00 15:39 Temperature 98.4 F Pulse Rate 55 L 58 L Pulse Rate [ From Monitor] Respiratory 15 14 Rate Blood Pressure 122/65 126/67 O2 Sat by Pulse 98 99 Oximetry 07/24/18 16:00 Temperature Pulse Rate 60 Pulse Rate [ 57 L From Monitor] Respiratory 17 Rate Blood Pressure 138/80 O2 Sat by Pulse 93 Oximetry Constitutional: no acute distress, other (elderly AAM, normocephalic and atraumatic with normal respiratory effort at rest) Eyes: non-icteric ENT: oropharynx moist Neck: supple, no lymphadenopathy, no JVD Effort: normal Ascultation: Bilateral: clear, diminished breath sounds Percussion: Bilateral: not dull Cardiovascular: irregular rhythm, murmur noted (ystolic) Gastrointestinal: normoactive bowel sounds, soft, non-tender, non-distended Integumentary: other (poor turgor) Extremities: no cyanosis, pulses normal, no ischemia or petechiae Neurologic: non-focal exam (grossly), pupils equal and round, CN II-XII normal Psychiatric: other (affect flat) CBC and BMP: 07/24/18 05:20 07/25/18 05:37 ABG, PT/INR, D-dimer: PT/INR, D-dimer PT 13.7 Sec. (12.2-14.9) 07/22/18 01:52 INR 0.99 (0.87-1.13) 07/22/18 01:52 Abnormal lab findings: Abnormal Labs 07/22/18 07/22/18 07/22/18 01:52 01:52 01:52 WBC RBC Hgb Hct Lymph % (Auto) 42.7 H [place] % (Auto) [place] # Seg Neutrophils % Seg Neutrophils # APTT 23.0 L Sodium 136 L Chloride Carbon Dioxide 21 L BUN Creatinine Glucose 256 H Magnesium Total Creatine Kinase CK-MB (CK-2) Albumin 07/22/18 07/22/18 07/22/18 01:52 04:40 10:31 WBC RBC Hgb Hct Lymph % (Auto) [place] % (Auto) [place] # Seg Neutrophils % Seg Neutrophils # APTT Sodium Chloride Carbon Dioxide BUN Creatinine Glucose Magnesium 2.80 H Total Creatine Kinase 256 H 282 H CK-MB (CK-2) 5.1 H 5.3 H Albumin 07/23/18 07/23/18 07/24/18 04:06 04:06 05:20 WBC 11.7 H RBC 5.41 H Hgb 16.5 H Hct 50.1 H Lymph % (Auto) 10.8 L [place] % (Auto) 10.1 H 8.2 H [place] # 1.2 H Seg Neutrophils % 79.0 H Seg Neutrophils # 9.3 H APTT Sodium 135 L Chloride 97.6 L Carbon Dioxide 21 L BUN 27 H Creatinine 1.7 H Glucose 125 H Magnesium Total Creatine Kinase CK-MB (CK-2) Albumin 07/24/18 05:20 WBC RBC Hgb Hct Lymph % (Auto) [place] % (Auto) [place] # Seg Neutrophils % Seg Neutrophils # APTT Sodium Chloride Carbon Dioxide BUN 33 H Creatinine 1.8 H Glucose Magnesium Total Creatine Kinase CK-MB (CK-2) Albumin 3.3 L Allied health notes reviewed: nursing
[2018-07-24] MEDS: PRAVACHOL PO SCH (21:35)
[2018-07-24] MEDS: ZETIA PO SCH (21:36)
[2018-07-25 06:25] LABS: Calcium 8.3 mg/dL (8.4-10.2)
[2018-07-25] MEDS: AVODART PO SCH (09:36)
[2018-07-25] MEDS: COREG PO SCH ×2 (09:36→21:18)
[2018-07-25] MEDS: COLCHICINE PO SCH ×2 (09:36→21:18)
[2018-07-25] MEDS: NORVASC PO SCH (09:37)
[2018-07-25] MEDS: ELIQUIS PO SCH ×2 (09:37→21:20)
[2018-07-25] MEDS: ROCEPHIN/NS 1 GM/50 ML 1 GM/50 ML BAG IV SCH (09:38)
[2018-07-25] MEDS: ZYLOPRIM PO SCH (09:39)
[2018-07-25] MEDS: ZITHROMAX 500 MG in NACL 0.9% 250ML 250 ML IV SCH (09:39)
[2018-07-25] MEDS: SODIUM CHLORIDE FLUSH SYRINGE 10 ML IV SCH ×2 (09:39→21:21)
--- NOTE | 2018-07-25 10:22 | Progress Note ---
Assessment and Plan acute respiratory failure acute diastolic and systolic dsyfunction acute on chronic renal insufficiency htn urgency AMS -improved hyperlipidemia Atrial fib PPM rec: doing better, cr improved, ambulate, september d/c from cv standpoint w/ close f/u. Subjective Principal diagnosis: HTNsive Emergency; Pulm Edema vs PNA; Acute Hypoxemic Resp Failure; LISBETH Interval history: feels well at bedside Objective Vital Signs Temp Pulse Pulse Resp BP Pulse Ox 07/25/18 09:37 60 163/97 07/25/18 09:36 62 163/97 07/25/18 08:00 97.6 F 07/25/18 07:00 55 L 15 112/80 96 07/25/18 06:01 54 L 14 129/73 95 07/25/18 05:00 54 L 13 125/64 95 07/25/18 04:01 61 15 127/73 96 07/25/18 04:00 97.9 F 51 L 13 97 07/25/18 03:00 55 L 13 119/66 96 07/25/18 02:00 56 L 13 126/65 96 07/25/18 01:00 54 L 16 119/64 93 07/25/18 00:00 98.2 F 50 L 53 L 13 132/63 95 07/24/18 23:00 62 16 144/72 97 07/24/18 22:00 59 L 18 136/70 97 07/24/18 21:32 63 134/69 07/24/18 21:13 61 19 134/69 98 07/24/18 21:00 60 16 134/69 96 07/24/18 20:01 65 21 127/64 96 07/24/18 20:00 97.8 F 62 15 96 07/24/18 19:00 62 20 151/88 94 07/24/18 18:00 58 L 16 134/71 97 07/24/18 17:00 59 L 13 138/73 96 07/24/18 16:00 60 57 L 17 138/80 93 07/24/18 15:39 98.4 F 07/24/18 15:00 58 L 14 126/67 99 07/24/18 14:00 55 L 15 122/65 98 07/24/18 13:00 59 L 13 127/70 99 07/24/18 12:00 63 59 L 17 128/76 99 07/24/18 11:23 98.2 F 07/24/18 11:00 57 L 14 125/68 97 - Physical Examination General: No Apparent Distress HEENT: Positive: PERRL, Normocephaly, Mucus Membranes Moist Neck: Positive: neck supple, trachea midline Neuro: Positive: Grossly Intact, Other Abdomen: Positive: Soft. Negative: Tender Skin: Negative: Rash, Wound Musculoskeletal: No Pain Extremities: Absent: edema - Labs and Meds Comprehensive Metabolic Panel 07/25/18 Range/Units 05:37 Sodium 140 (137-145) mmol/L Potassium 4.0 (3.6-5.0) mmol/L Chloride 105.0 (98-107) mmol/L Carbon Dioxide 23 (22-30) mmol/L BUN 29 H (9-20) mg/dL Creatinine 1.5 (0.8-1.5) mg/dL Glucose 97 (75-100) mg/dL Calcium 8.3 L (8.4-10.2) mg/dL - Imaging and Cardiology EKG: report reviewed, image reviewed Echo: pending, report reviewed (07/2017 showed EF 50-55%, grade 1 diastolic dysfunction, minimal MR, mild AR, mod TR, RVSP 42mmHg. ), other (07/23/2018 ef 45% septal hypokinesis , mild as and mild ai mild tr) Pacemaker: ventricular pacing w/capt - Allied health notes Allied health notes reviewed: nursing
[2018-07-25] MEDS: APRESOLINE PO SCH ×3 (13:56→21:17)
--- NOTE | 2018-07-25 15:57 | Progress Note ---
Assessment and Plan Assessment and plan: Hypertensive emergency with DBP OF 135 on admission -off nitro drip -BP trended up today -cont coreg, amlodipine and PRN hydralazine -will add oral hydralazine Possible PNA -antibiotics changed to oral -blood cultures neg so far Acute respiratory failure with hypoxia, present on admission -off BIPAP -cont 02 supplementation as needed and PRN duoneb Acute on CKD stage 2 -off Lasix -IVF given, improved Acute on chronic diastolic and systolic HF -improved, off Lasix -Echo showed EF of 40-45% Acute metabolic encephalopathy -probable 2/2 acute infection versus underlying dementia -CT head neg -will monitor clinically Moderate malnutrition evidenced by poor oral intake with albumin of 3.3 -On oral supplements Hypermagnesemia -resolved Hyperglycemia -hba1c:5.6 Hyperlipidemia, stable -cont home meds H/O Atrial fib -rate controlled -cont oral anticoagulation with eliquis H/O sick sinus syndrome -s/p pacemaker placement BPH -cont home med gout -no acute flare-up -cont allopurinol Disp: due to the uncontrolled HTN and confusion, we will monitor pt for another 24 hrs and plan for d/c in am if clinically stable History Interval history: Patient has no new complaints, but he was noted to be confused per his nurse this afternoon. He also has poor oral intake Hospitalist Physical - Constitutional Vitals: Temp Pulse Resp BP Pulse Ox 97.8 F 58 L 22 145/83 97 07/25/18 12:00 07/25/18 15:00 07/25/18 12:01 07/25/18 15:00 07/25/18 15:00 General appearance: Present: no acute distress - EENT Eyes: Present: PERRL, EOM intact ENT: hearing intact, clear oral mucosa - Neck Neck: Present: supple - Respiratory Respiratory effort: normal Respiratory: bilateral: CTA - Cardiovascular Rhythm: regular Heart Sounds: Present: S1 & S2 - Extremities Extremities: No edema - Abdominal General gastrointestinal: soft, non-tender, non-distended, normal bowel sounds - Neurologic Neurologic: CNII-XII intact Results - Labs CBC & Chem 7: 07/24/18 05:20 07/25/18 05:37 Labs: Laboratory Last Values WBC 6.4 K/mm3 (4.5-11.0) 07/24/18 05:20 RBC 4.75 M/mm3 (3.65-5.03) 07/24/18 05:20 Hgb 14.5 gm/dl (11.8-15.2) 07/24/18 05:20 Hct 43.4 % (35.5-45.6) D 07/24/18 05:20 MCV 91 fl (84-94) 07/24/18 05:20 MCH 30 pg (28-32) 07/24/18 05:20 MCHC 33 % (32-34) 07/24/18 05:20 RDW 14.8 % (13.2-15.2) 07/24/18 05:20 Plt Count 189 K/mm3 (140-440) 07/24/18 05:20 Lymph % (Auto) 29.9 % (13.4-35.0) 07/24/18 05:20 [place] % (Auto) 8.2 % (0.0-7.3) H 07/24/18 05:20 Eos % (Auto) 0.9 % (0.0-4.3) 07/24/18 05:20 Baso % (Auto) 0.3 % (0.0-1.8) 07/24/18 05:20 Lymph # 1.9 K/mm3 (1.2-5.4) 07/24/18 05:20 [place] # 0.5 K/mm3 (0.0-0.8) 07/24/18 05:20 Eos # 0.1 K/mm3 (0.0-0.4) 07/24/18 05:20 Baso # 0.0 K/mm3 (0.0-0.1) 07/24/18 05:20 Seg Neutrophils % 60.7 % (40.0-70.0) 07/24/18 05:20 Seg Neutrophils # 3.9 K/mm3 (1.8-7.7) 07/24/18 05:20 PT 13.7 Sec. (12.2-14.9) 07/22/18 01:52 INR 0.99 (0.87-1.13) 07/22/18 01:52 APTT 23.0 Sec. (24.2-36.6) L 07/22/18 01:52 Sodium 140 mmol/L (137-145) 07/25/18 05:37 Potassium 4.0 mmol/L (3.6-5.0) 07/25/18 05:37 Chloride 105.0 mmol/L (98-107) 07/25/18 05:37 Carbon Dioxide 23 mmol/L (22-30) 07/25/18 05:37 Anion Gap 16 mmol/L 07/25/18 05:37 BUN 29 mg/dL (9-20) H 07/25/18 05:37 Creatinine 1.5 mg/dL (0.8-1.5) 07/25/18 05:37 Estimated GFR 56 ml/min 07/25/18 05:37 BUN/Creatinine Ratio 19 % 07/25/18 05:37 Glucose 97 mg/dL (75-100) 07/25/18 05:37 Hemoglobin A1c 5.6 % (4-6) 07/24/18 05:20 Calcium 8.3 mg/dL (8.4-10.2) L 07/25/18 05:37 Magnesium 2.30 mg/dL (1.7-2.3) 07/23/18 04:06 Total Bilirubin 0.60 mg/dL (0.1-1.2) 07/24/18 05:20 AST 18 units/L (5-40) 07/24/18 05:20 ALT 17 units/L (7-56) 07/24/18 05:20 Alkaline Phosphatase 83 units/L (35-129) 07/24/18 05:20 Total Creatine Kinase 282 units/L (55-170) H 07/22/18 10:31 CK-MB (CK-2) 5.3 ng/mL (0.0-4.0) H 07/22/18 10:31 CK-MB (CK-2) Rel Index 1.8 (0-4) 07/22/18 10:31 Troponin T 0.018 ng/mL (0.00-0.029) 07/22/18 10:31 Total Protein 6.9 g/dL (6.3-8.2) 07/24/18 05:20 Albumin 3.3 g/dL (3.9-5) L 07/24/18 05:20 Albumin/Globulin Ratio 0.9 % 07/24/18 05:20 Urine Color Yellow (Yellow) 07/23/18 11:00 Urine Turbidity Clear (Clear) 07/23/18 11:00 Urine pH 5.0 (5.0-7.0) 07/23/18 11:00 Ur Specific [place] 1.014 (1.003-1.030) 07/23/18 11:00 Urine Protein 100 mg/dl mg/dL (Negative) 07/23/18 11:00 Urine Glucose (UA) Neg mg/dL (Negative) 07/23/18 11:00 Urine Ketones Neg mg/dL (Negative) 07/23/18 11:00 Urine Blood Mod (Negative) 07/23/18 11:00 Urine Nitrite Neg (Negative) 07/23/18 11:00 Urine Bilirubin Neg (Negative) 07/23/18 11:00 Urine Urobilinogen < 2.0 mg/dL (<2.0) 07/23/18 11:00 Ur Leukocyte Esterase Neg (Negative) 07/23/18 11:00 Urine WBC (Auto) 2.0 /HPF (0.0-6.0) 07/23/18 11:00 Urine RBC (Auto) 19.0 /HPF (0.0-6.0) 07/23/18 11:00
--- NOTE | 2018-07-25 18:02 | Progress Note ---
Assessment and Plan Hypertensive Emergency Acute (? Flash) Pulmonary Edema Possible occult Pneumonia Acute Hypoxemic Respiratory Failure LISBETH on CKD Acute Encephalopathy (Toxic Metabolic +/- Dementia element) Acute CHF exacerbation (HFrEF of 40%) Hyperglycemia HLD Atrial Fibrillation Gout BPH - consider Seroquel for delirium reasons (confused intermitently) - supplemental oxygen as needed to keep O2 Sat's > 90% - prn BIPAP at this point - continue bronchodilators with pulmonary hygiene per RT - continue Coreg for BP & CMOP reasons (hydralazine added) - cardiology evaluation ongoing - continue empiric AB's - get CRP level to aid clinical decision making and AB's de-escalation - repeat CXR reviewed and unremarkable - PT/OT - mobility protocol for pressure ulcer prophylaxis - GI prophylaxis - continue glycemic cotrol with accuchecks and SSI for target BG 140-180 mg/dL acutely - continue Eliquis for anticoagulation re: A-fib - continue Colchicine for Gout - continue other care per attending / other consultants ... re-evaluate in am & prn Subjective Date of service: 07/25/18 Principal diagnosis: HTNsive Emergency; Pulm Edema vs PNA; Acute Hypoxemic Resp Failure; LISBETH Interval history: Patient is seen today for: Hypertensive Emergency; Acute (? Flash) Pulmonary Edema; Possible occult Pneumonia; Acute Hypoxemic Respiratory Failure; LISBETH on CKD; Acute Encephalopathy (Toxic Metabolic +/- Dementia element); Acute CHF exacerbation (HFrEF of 40%) Seen and examined at bedside; 24hour events reviewed; nursing and respiratory care staff consulted; no adverse overnight events reported to me; resting peacefully in bed; denies acute chest pains or palpitations; No N/V/F/C Objective Vital Signs - 12hr 07/25/18 07/25/18 07/25/18 07:00 08:00 09:01 Temperature 97.6 F Pulse Rate 55 L 58 L 88 Pulse Rate [ 60 From Monitor] Respiratory 15 14 21 Rate Blood Pressure 112/80 112/80 163/97 O2 Sat by Pulse 96 99 97 Oximetry 07/25/18 07/25/18 07/25/18 09:36 09:37 10:00 Temperature Pulse Rate 62 60 62 Pulse Rate [ From Monitor] Respiratory Rate Blood Pressure 163/97 163/97 O2 Sat by Pulse Oximetry 07/25/18 07/25/18 07/25/18 10:01 11:00 12:00 Temperature 97.8 F Pulse Rate 62 Pulse Rate [ From Monitor] Respiratory 16 20 Rate Blood Pressure 163/97 135/71 O2 Sat by Pulse 97 94 Oximetry 07/25/18 07/25/18 07/25/18 12:01 13:01 13:56 Temperature Pulse Rate 82 87 66 Pulse Rate [ From Monitor] Respiratory 22 Rate Blood Pressure 157/100 163/89 163/89 O2 Sat by Pulse 97 94 Oximetry 07/25/18 07/25/18 07/25/18 14:01 15:00 16:00 Temperature 98.1 F Pulse Rate 74 58 L Pulse Rate [ From Monitor] Respiratory Rate Blood Pressure 161/84 145/83 O2 Sat by Pulse 97 97 Oximetry Constitutional: no acute distress, other (elderly AAM, normocephalic and atraumatic with normal respiratory effort at rest) Eyes: non-icteric ENT: oropharynx moist Neck: supple, no lymphadenopathy, no JVD Effort: normal Ascultation: Bilateral: clear, diminished breath sounds Percussion: Bilateral: not dull Cardiovascular: irregular rhythm, murmur noted (ystolic) Gastrointestinal: normoactive bowel sounds, soft, non-tender, non-distended Integumentary: other (poor turgor) Extremities: no cyanosis, pulses normal, no ischemia or petechiae Neurologic: non-focal exam (grossly), pupils equal and round, CN II-XII normal Psychiatric: other (affect flat) CBC and BMP: 07/24/18 05:20 07/25/18 05:37 ABG, PT/INR, D-dimer: PT/INR, D-dimer PT 13.7 Sec. (12.2-14.9) 07/22/18 01:52 INR 0.99 (0.87-1.13) 07/22/18 01:52 Abnormal lab findings: Abnormal Labs 07/22/18 07/22/18 07/22/18 01:52 01:52 01:52 WBC RBC Hgb Hct Lymph % (Auto) 42.7 H [place] % (Auto) [place] # Seg Neutrophils % Seg Neutrophils # APTT 23.0 L Sodium 136 L Chloride Carbon Dioxide 21 L BUN Creatinine Glucose 256 H Calcium Magnesium Total Creatine Kinase CK-MB (CK-2) Albumin 07/22/18 07/22/18 07/22/18 01:52 04:40 10:31 WBC RBC Hgb Hct Lymph % (Auto) [place] % (Auto) [place] # Seg Neutrophils % Seg Neutrophils # APTT Sodium Chloride Carbon Dioxide BUN Creatinine Glucose Calcium Magnesium 2.80 H Total Creatine Kinase 256 H 282 H CK-MB (CK-2) 5.1 H 5.3 H Albumin 07/23/18 07/23/18 07/24/18 04:06 04:06 05:20 WBC 11.7 H RBC 5.41 H Hgb 16.5 H Hct 50.1 H Lymph % (Auto) 10.8 L [place] % (Auto) 10.1 H 8.2 H [place] # 1.2 H Seg Neutrophils % 79.0 H Seg Neutrophils # 9.3 H APTT Sodium 135 L Chloride 97.6 L Carbon Dioxide 21 L BUN 27 H Creatinine 1.7 H Glucose 125 H Calcium Magnesium Total Creatine Kinase CK-MB (CK-2) Albumin 07/24/18 07/25/18 05:20 05:37 WBC RBC Hgb Hct Lymph % (Auto) [place] % (Auto) [place] # Seg Neutrophils % Seg Neutrophils # APTT Sodium Chloride Carbon Dioxide BUN 33 H 29 H Creatinine 1.8 H Glucose Calcium 8.3 L Magnesium Total Creatine Kinase CK-MB (CK-2) Albumin 3.3 L Allied health notes reviewed: nursing
[2018-07-25] MEDS: PRAVACHOL PO SCH (21:20)
[2018-07-25] MEDS: ZETIA PO SCH (21:21)
[2018-07-26] MEDS: TYLENOL PO PRN (02:36)
[2018-07-26] MEDS: APRESOLINE PO SCH ×2 (05:29→18:22)
[2018-07-26] MEDS ORDERED: ATIVAN IV PRN (09:51)
[2018-07-26] MEDS: COLCHICINE PO SCH ×2 (10:15→21:48)
[2018-07-26] MEDS: ZITHROMAX PO SCH (10:15)
[2018-07-26] MEDS: NORVASC PO SCH (10:15)
[2018-07-26] MEDS: ELIQUIS PO SCH ×2 (10:15→21:50)
[2018-07-26] MEDS: SODIUM CHLORIDE FLUSH SYRINGE 10 ML IV SCH (10:15)
[2018-07-26] MEDS: ZYLOPRIM PO SCH (10:15)
[2018-07-26] MEDS: AVODART PO SCH (10:15)
[2018-07-26] MEDS: COREG PO SCH ×2 (10:15→21:49)
--- NOTE | 2018-07-26 11:42 | Progress Note ---
Assessment and Plan 72yo AAM: AMS acute respiratory failure acute diastolic and systolic dsyfunction acute on chronic renal insufficiency htn urgency AMS -labile hyperlipidemia Atrial fib PPM rec: add hydralazine po ams w/u per primary Subjective Principal diagnosis: HTNsive Emergency; Pulm Edema vs PNA; Acute Hypoxemic Resp Failure; LISBETH Interval history: very confused last night Objective Vital Signs Temp Pulse Pulse Resp BP Pulse Ox 07/26/18 11:35 77 178/88 07/26/18 10:15 80 152/95 07/26/18 08:33 98 07/26/18 08:00 98.6 F 07/26/18 05:29 82 169/99 07/26/18 04:00 65 94 H 15 168/83 93 07/26/18 03:01 95 H 185/153 95 07/26/18 02:00 183/96 07/26/18 01:01 84 183/96 92 07/26/18 00:01 68 125/80 91 07/26/18 00:00 62 13 96 07/25/18 23:00 73 137/73 90 07/25/18 22:01 68 148/75 93 07/25/18 22:00 64 07/25/18 21:18 64 165/85 07/25/18 21:17 64 165/85 07/25/18 21:00 62 169/85 95 07/25/18 20:23 97 07/25/18 20:01 70 171/73 95 07/25/18 20:00 67 20 94 07/25/18 19:00 61 169/82 07/25/18 18:01 76 154/71 07/25/18 17:01 70 154/71 07/25/18 16:00 98.1 F 63 62 17 140/77 98 07/25/18 15:30 68 147/71 98 07/25/18 15:00 58 L 145/83 97 07/25/18 14:01 74 161/84 97 07/25/18 13:56 66 163/89 07/25/18 13:01 87 163/89 94 07/25/18 12:01 82 22 157/100 97 07/25/18 12:00 97.8 F 64 16 96 - Physical Examination General: No Apparent Distress HEENT: Positive: PERRL, Normocephaly, Mucus Membranes Moist Neck: Positive: neck supple, trachea midline Neuro: Positive: Grossly Intact, Other Abdomen: Positive: Soft. Negative: Tender Skin: Negative: Rash, Wound Musculoskeletal: No Pain Extremities: Absent: edema - Imaging and Cardiology EKG: report reviewed, image reviewed Echo: pending, report reviewed (07/2017 showed EF 50-55%, grade 1 diastolic dysfunction, minimal MR, mild AR, mod TR, RVSP 42mmHg. ), other (07/23/2018 ef 45% septal hypokinesis , mild as and mild ai mild tr) Pacemaker: ventricular pacing w/capt - Allied health notes Allied health notes reviewed: nursing
[2018-07-26] MEDS ORDERED: APRESOLINE PO ONE (12:00)
[2018-07-26] MEDS ORDERED: HALDOL IM ONE (13:00)
--- NOTE | 2018-07-26 13:07 | Progress Note ---
Assessment and Plan Assessment and plan: Hypertensive emergency with DBP OF 135 on admission -off nitro drip -BP currently uncontrolled, hydralazine dose increased -cont coreg and amlodipine, adjust meds as needed Possible PNA -Continue oral antibiotic -blood cultures neg so far Acute respiratory failure with hypoxia, present on admission -off BIPAP -cont 02 supplementation as needed and PRN duoneb Acute on CKD stage 2 -off Lasix -IVF given, improved Acute on chronic diastolic and systolic HF -improved, off Lasix -Echo showed EF of 40-45% Acute metabolic encephalopathy -probable 2/2 acute infection versus underlying dementia -CT head neg -will monitor clinically Probable dementia with behavioral disturbances -Haldol x1 given -cont PRN ativan -Neurology consulted Moderate malnutrition evidenced by poor oral intake with albumin of 3.3 -cont oral supplements Hypermagnesemia -resolved Hyperglycemia -hba1c:5.6 Hyperlipidemia, stable -cont home meds H/O Atrial fib -rate controlled -cont oral anticoagulation with eliquis H/O sick sinus syndrome -s/p pacemaker placement BPH, stable -cont home med gout -no acute flare-up -cont allopurinol Disp: Due to the worsened confusion with agitation, we will hold discharge for now and transfer patient out of MICU History Interval history: Patient very confused and agitated overnight. Hospitalist Physical - Constitutional Vitals: Temp Pulse Resp BP Pulse Ox 98.6 F 79 16 178/88 96 07/26/18 08:00 07/26/18 12:00 07/26/18 12:00 07/26/18 12:00 07/26/18 12:00 General appearance: Present: no acute distress - EENT Eyes: Present: PERRL, EOM intact ENT: hearing intact, clear oral mucosa - Neck Neck: Present: supple - Respiratory Respiratory effort: normal Respiratory: bilateral: CTA - Cardiovascular Rhythm: regular Heart Sounds: Present: S1 & S2 - Extremities Extremities: No edema - Abdominal General gastrointestinal: soft, non-tender, normal bowel sounds - Neurologic Neurologic: CNII-XII intact, other (confused and oriented to person only) Results - Labs CBC & Chem 7: 07/24/18 05:20 07/25/18 05:37 Labs: Laboratory Last Values WBC 6.4 K/mm3 (4.5-11.0) 07/24/18 05:20 RBC 4.75 M/mm3 (3.65-5.03) 07/24/18 05:20 Hgb 14.5 gm/dl (11.8-15.2) 07/24/18 05:20 Hct 43.4 % (35.5-45.6) D 07/24/18 05:20 MCV 91 fl (84-94) 07/24/18 05:20 MCH 30 pg (28-32) 07/24/18 05:20 MCHC 33 % (32-34) 07/24/18 05:20 RDW 14.8 % (13.2-15.2) 07/24/18 05:20 Plt Count 189 K/mm3 (140-440) 07/24/18 05:20 Lymph % (Auto) 29.9 % (13.4-35.0) 07/24/18 05:20 [place] % (Auto) 8.2 % (0.0-7.3) H 07/24/18 05:20 Eos % (Auto) 0.9 % (0.0-4.3) 07/24/18 05:20 Baso % (Auto) 0.3 % (0.0-1.8) 07/24/18 05:20 Lymph # 1.9 K/mm3 (1.2-5.4) 07/24/18 05:20 [place] # 0.5 K/mm3 (0.0-0.8) 07/24/18 05:20 Eos # 0.1 K/mm3 (0.0-0.4) 07/24/18 05:20 Baso # 0.0 K/mm3 (0.0-0.1) 07/24/18 05:20 Seg Neutrophils % 60.7 % (40.0-70.0) 07/24/18 05:20 Seg Neutrophils # 3.9 K/mm3 (1.8-7.7) 07/24/18 05:20 PT 13.7 Sec. (12.2-14.9) 07/22/18 01:52 INR 0.99 (0.87-1.13) 07/22/18 01:52 APTT 23.0 Sec. (24.2-36.6) L 07/22/18 01:52 Sodium 140 mmol/L (137-145) 07/25/18 05:37 Potassium 4.0 mmol/L (3.6-5.0) 07/25/18 05:37 Chloride 105.0 mmol/L (98-107) 07/25/18 05:37 Carbon Dioxide 23 mmol/L (22-30) 07/25/18 05:37 Anion Gap 16 mmol/L 07/25/18 05:37 BUN 29 mg/dL (9-20) H 07/25/18 05:37 Creatinine 1.5 mg/dL (0.8-1.5) 07/25/18 05:37 Estimated GFR 56 ml/min 07/25/18 05:37 BUN/Creatinine Ratio 19 % 07/25/18 05:37 Glucose 97 mg/dL (75-100) 07/25/18 05:37 Hemoglobin A1c 5.6 % (4-6) 07/24/18 05:20 Calcium 8.3 mg/dL (8.4-10.2) L 07/25/18 05:37 Magnesium 2.30 mg/dL (1.7-2.3) 07/23/18 04:06 Total Bilirubin 0.60 mg/dL (0.1-1.2) 07/24/18 05:20 AST 18 units/L (5-40) 07/24/18 05:20 ALT 17 units/L (7-56) 07/24/18 05:20 Alkaline Phosphatase 83 units/L (35-129) 07/24/18 05:20 Total Creatine Kinase 282 units/L (55-170) H 07/22/18 10:31 CK-MB (CK-2) 5.3 ng/mL (0.0-4.0) H 07/22/18 10:31 CK-MB (CK-2) Rel Index 1.8 (0-4) 07/22/18 10:31 Troponin T 0.018 ng/mL (0.00-0.029) 07/22/18 10:31 Total Protein 6.9 g/dL (6.3-8.2) 07/24/18 05:20 Albumin 3.3 g/dL (3.9-5) L 07/24/18 05:20 Albumin/Globulin Ratio 0.9 % 07/24/18 05:20 Urine Color Yellow (Yellow) 07/23/18 11:00 Urine Turbidity Clear (Clear) 07/23/18 11:00 Urine pH 5.0 (5.0-7.0) 07/23/18 11:00 Ur Specific [place] 1.014 (1.003-1.030) 07/23/18 11:00 Urine Protein 100 mg/dl mg/dL (Negative) 07/23/18 11:00 Urine Glucose (UA) Neg mg/dL (Negative) 07/23/18 11:00 Urine Ketones Neg mg/dL (Negative) 07/23/18 11:00 Urine Blood Mod (Negative) 07/23/18 11:00 Urine Nitrite Neg (Negative) 07/23/18 11:00 Urine Bilirubin Neg (Negative) 07/23/18 11:00 Urine Urobilinogen < 2.0 mg/dL (<2.0) 07/23/18 11:00 Ur Leukocyte Esterase Neg (Negative) 07/23/18 11:00 Urine WBC (Auto) 2.0 /HPF (0.0-6.0) 07/23/18 11:00 Urine RBC (Auto) 19.0 /HPF (0.0-6.0) 07/23/18 11:00
--- NOTE | 2018-07-26 15:41 | Progress Note ---
Assessment and Plan Hypertensive Emergency Acute (? Flash) Pulmonary Edema Possible occult Pneumonia Acute Hypoxemic Respiratory Failure LISBETH on CKD Acute Encephalopathy (Toxic Metabolic +/- Dementia element) Acute CHF exacerbation (HFrEF of 40%) Hyperglycemia HLD Atrial Fibrillation Gout BPH - Scheduled low dose Seroquel for delirium reasons - supplemental oxygen as needed to keep O2 Sat's > 90% - prn BIPAP at this point - continue bronchodilators with pulmonary hygiene per RT - continue Coreg for BP & CMOP reasons (hydralazine added) - cardiology evaluation ongoing - continue empiric AB's - get CRP level to aid clinical decision making and AB's de-escalation - repeat CXR reviewed and unremarkable - PT/OT - mobility protocol for pressure ulcer prophylaxis - GI prophylaxis - continue glycemic cotrol with accuchecks and SSI for target BG 140-180 mg/dL acutely - continue Eliquis for anticoagulation re: A-fib - continue Colchicine for Gout - continue other care per attending / other consultants ... re-evaluate in am & prn Subjective Date of service: 07/26/18 Principal diagnosis: HTNsive Emergency; Pulm Edema vs PNA; Acute Hypoxemic Resp Failure; LISBETH Interval history: Patient is seen today for: Hypertensive Emergency; Acute (? Flash) Pulmonary Edema; Possible occult Pneumonia; Acute Hypoxemic Respiratory Failure; LISBETH on CKD; Acute Encephalopathy (Toxic Metabolic +/- Dementia element); Acute CHF exacerbation (HFrEF of 40%) Seen and examined at bedside; 24hour events reviewed; nursing and respiratory care staff consulted; no adverse overnight events reported to me; sitting in chair; refusing telemetry and BP checks; agitated earlier and pushed visitor in room per RN; he denies acute chest pains or palpitations; No N/V/F/C Objective Vital Signs - 12hr 07/26/18 07/26/18 07/26/18 04:00 04:31 05:01 Temperature Pulse Rate 65 93 H 78 Pulse Rate [ 94 H From Monitor] Respiratory 15 Rate Blood Pressure 168/83 168/83 169/99 O2 Sat by Pulse 93 85 81 L Oximetry 07/26/18 07/26/18 07/26/18 05:29 05:31 06:01 Temperature Pulse Rate 82 91 H Pulse Rate [ From Monitor] Respiratory Rate Blood Pressure 169/99 168/83 168/83 O2 Sat by Pulse 90 84 Oximetry 07/26/18 07/26/18 07/26/18 08:00 08:05 08:31 Temperature 98.6 F Pulse Rate Pulse Rate [ 82 From Monitor] Respiratory 14 Rate Blood Pressure 168/83 168/83 O2 Sat by Pulse 95 85 99 Oximetry 07/26/18 07/26/18 07/26/18 08:33 09:36 10:00 Temperature Pulse Rate 87 Pulse Rate [ From Monitor] Respiratory Rate Blood Pressure 168/83 152/95 O2 Sat by Pulse 98 Oximetry 07/26/18 07/26/18 07/26/18 10:15 10:31 11:01 Temperature Pulse Rate 80 85 93 H Pulse Rate [ From Monitor] Respiratory Rate Blood Pressure 152/95 152/95 152/95 O2 Sat by Pulse Oximetry 07/26/18 07/26/18 11:35 12:00 Temperature Pulse Rate 77 Pulse Rate [ 79 From Monitor] Respiratory 16 Rate Blood Pressure 178/88 178/88 O2 Sat by Pulse 96 Oximetry Constitutional: no acute distress, other (elderly AAM, normocephalic and atraumatic with normal respiratory effort at rest) Eyes: non-icteric ENT: oropharynx moist Neck: supple, no lymphadenopathy, no JVD Effort: normal Ascultation: Bilateral: clear, diminished breath sounds, rhonchi Percussion: Bilateral: not dull Cardiovascular: irregular rhythm, murmur noted (ystolic) Gastrointestinal: normoactive bowel sounds, soft, non-tender, non-distended Integumentary: other (poor turgor) Extremities: no cyanosis, pulses normal, no ischemia or petechiae Neurologic: non-focal exam (grossly), pupils equal and round, CN II-XII normal Psychiatric: other (affect flat) CBC and BMP: 07/24/18 05:20 07/25/18 05:37 ABG, PT/INR, D-dimer: PT/INR, D-dimer PT 13.7 Sec. (12.2-14.9) 07/22/18 01:52 INR 0.99 (0.87-1.13) 07/22/18 01:52 Abnormal lab findings: Abnormal Labs 07/22/18 07/22/18 07/22/18 01:52 01:52 01:52 WBC RBC Hgb Hct Lymph % (Auto) 42.7 H [place] % (Auto) [place] # Seg Neutrophils % Seg Neutrophils # APTT 23.0 L Sodium 136 L Chloride Carbon Dioxide 21 L BUN Creatinine Glucose 256 H Calcium Magnesium Total Creatine Kinase CK-MB (CK-2) Albumin 07/22/18 07/22/18 07/22/18 01:52 04:40 10:31 WBC RBC Hgb Hct Lymph % (Auto) [place] % (Auto) [place] # Seg Neutrophils % Seg Neutrophils # APTT Sodium Chloride Carbon Dioxide BUN Creatinine Glucose Calcium Magnesium 2.80 H Total Creatine Kinase 256 H 282 H CK-MB (CK-2) 5.1 H 5.3 H Albumin 07/23/18 07/23/18 07/24/18 04:06 04:06 05:20 WBC 11.7 H RBC 5.41 H Hgb 16.5 H Hct 50.1 H Lymph % (Auto) 10.8 L [place] % (Auto) 10.1 H 8.2 H [place] # 1.2 H Seg Neutrophils % 79.0 H Seg Neutrophils # 9.3 H APTT Sodium 135 L Chloride 97.6 L Carbon Dioxide 21 L BUN 27 H Creatinine 1.7 H Glucose 125 H Calcium Magnesium Total Creatine Kinase CK-MB (CK-2) Albumin 07/24/18 07/25/18 05:20 05:37 WBC RBC Hgb Hct Lymph % (Auto) [place] % (Auto) [place] # Seg Neutrophils % Seg Neutrophils # APTT Sodium Chloride Carbon Dioxide BUN 33 H 29 H Creatinine 1.8 H Glucose Calcium 8.3 L Magnesium Total Creatine Kinase CK-MB (CK-2) Albumin 3.3 L Allied health notes reviewed: nursing
[2018-07-26] MEDS: PRAVACHOL PO SCH (21:51)
[2018-07-26] MEDS: ZETIA PO SCH (21:52)
[2018-07-27] MEDS: APRESOLINE PO SCH ×3 (06:07→18:23)
[2018-07-27] MEDS: SODIUM CHLORIDE FLUSH SYRINGE 10 ML IV SCH ×2 (06:10→09:27)
--- NOTE | 2018-07-27 08:11 | Progress Note ---
Subjective Date of service: 07/27/18 Principal diagnosis: HTNsive Emergency; Pulm Edema vs PNA; Acute Hypoxemic Resp Failure; LISBETH Interval history: went over all notes / Labs / other consutant notes and plan to adress neuro issues orders reviewed plan to follow Thanks Objective - Vital Sign Vital Signs - 12hr 07/26/18 07/26/18 07/26/18 20:30 21:00 21:30 Temperature Pulse Rate 72 68 70 Pulse Rate [ From Monitor] Respiratory 17 14 16 Rate Blood Pressure 132/76 126/70 127/70 O2 Sat by Pulse 97 97 Oximetry 07/26/18 07/26/18 07/26/18 21:49 22:00 22:30 Temperature Pulse Rate 69 71 71 Pulse Rate [ From Monitor] Respiratory 17 16 Rate Blood Pressure 118/64 143/78 118/72 O2 Sat by Pulse 97 97 Oximetry 07/26/18 07/26/18 07/27/18 23:00 23:30 00:00 Temperature 98.7 F Pulse Rate 67 66 65 Pulse Rate [ 65 From Monitor] Respiratory 15 13 15 Rate Blood Pressure 118/74 110/65 117/64 O2 Sat by Pulse 95 96 97 Oximetry 07/27/18 07/27/18 07/27/18 00:30 01:00 01:30 Temperature Pulse Rate 63 62 70 Pulse Rate [ From Monitor] Respiratory 14 15 12 Rate Blood Pressure 108/57 101/58 105/64 O2 Sat by Pulse 97 97 96 Oximetry 07/27/18 07/27/18 07/27/18 02:00 02:06 02:31 Temperature Pulse Rate 61 66 Pulse Rate [ From Monitor] Respiratory 11 L 14 Rate Blood Pressure 106/63 110/63 O2 Sat by Pulse 96 96 97 Oximetry 07/27/18 07/27/18 07/27/18 03:01 03:30 04:00 Temperature 97.5 F L Pulse Rate 96 H 70 Pulse Rate [ 62 From Monitor] Respiratory 24 14 14 Rate Blood Pressure 125/74 140/71 O2 Sat by Pulse 97 96 96 Oximetry 07/27/18 07/27/18 07/27/18 06:07 06:09 07:40 Temperature Pulse Rate 69 69 Pulse Rate [ From Monitor] Respiratory Rate Blood Pressure 118/64 141/82 O2 Sat by Pulse 96 Oximetry 07/27/18 08:00 Temperature 98.4 F Pulse Rate Pulse Rate [ From Monitor] Respiratory Rate Blood Pressure O2 Sat by Pulse Oximetry - Laboratory Findings CBC and BMP: 07/24/18 05:20 07/25/18 05:37 Abnormal Lab Findings: Abnormal Labs 07/22/18 07/22/18 07/22/18 01:52 01:52 01:52 WBC RBC Hgb Hct Lymph % (Auto) 42.7 H [place] % (Auto) [place] # Seg Neutrophils % Seg Neutrophils # APTT 23.0 L Sodium 136 L Chloride Carbon Dioxide 21 L BUN Creatinine Glucose 256 H Calcium Magnesium Total Creatine Kinase CK-MB (CK-2) Albumin 07/22/18 07/22/18 07/22/18 01:52 04:40 10:31 WBC RBC Hgb Hct Lymph % (Auto) [place] % (Auto) [place] # Seg Neutrophils % Seg Neutrophils # APTT Sodium Chloride Carbon Dioxide BUN Creatinine Glucose Calcium Magnesium 2.80 H Total Creatine Kinase 256 H 282 H CK-MB (CK-2) 5.1 H 5.3 H Albumin 07/23/18 07/23/18 07/24/18 04:06 04:06 05:20 WBC 11.7 H RBC 5.41 H Hgb 16.5 H Hct 50.1 H Lymph % (Auto) 10.8 L [place] % (Auto) 10.1 H 8.2 H [place] # 1.2 H Seg Neutrophils % 79.0 H Seg Neutrophils # 9.3 H APTT Sodium 135 L Chloride 97.6 L Carbon Dioxide 21 L BUN 27 H Creatinine 1.7 H Glucose 125 H Calcium Magnesium Total Creatine Kinase CK-MB (CK-2) Albumin 07/24/18 07/25/18 05:20 05:37 WBC RBC Hgb Hct Lymph % (Auto) [place] % (Auto) [place] # Seg Neutrophils % Seg Neutrophils # APTT Sodium Chloride Carbon Dioxide BUN 33 H 29 H Creatinine 1.8 H Glucose Calcium 8.3 L Magnesium Total Creatine Kinase CK-MB (CK-2) Albumin 3.3 L
[2018-07-27] MEDS: ELIQUIS PO SCH (09:24)
[2018-07-27] MEDS: NORVASC PO SCH (09:25)
[2018-07-27] MEDS: ZYLOPRIM PO SCH (09:26)
[2018-07-27] MEDS: COREG PO SCH (09:26)
[2018-07-27] MEDS: ZITHROMAX PO SCH (09:26)
[2018-07-27] MEDS: AVODART PO SCH (09:27)
[2018-07-27] MEDS: COLCHICINE PO SCH (09:27)
[2018-07-27] MEDS ORDERED: VITAMIN D2 PO SCH (10:00)
--- NOTE | 2018-07-27 11:58 | Progress Note ---
Assessment and Plan Hypertensive Emergency Acute / Flash Pulmonary Edema Possible occult Pneumonia Acute Hypoxemic Respiratory Failure LISBETH on CKD Acute Encephalopathy (Toxic Metabolic +/- Dementia element) Acute CHF exacerbation (HFrEF of 40%) Hyperglycemia HLD Atrial Fibrillation Gout BPH - on low dose Seroquel, psych evaluation on going -delirium prevention measures, church of sleep-wake cycle - continue supplemental oxygen to keep O2 Sat's > 90% - prn BIPAP - continue bronchodilators with pulmonary hygiene per RT - continue cardioprotective measures - prn CXR - follow electrolytes and correct as necessary - PT/OT /mobility - continue glycemic control with accuchecks and SSI for target BG 140-180 mg/dL acutely - continue Eliquis for anticoagulation re: A-fib - continue Colchicine for Gout - continue other care per attending / other consultants -discharge planning Subjective Date of service: 07/27/18 Principal diagnosis: HTNsive Emergency; Pulm Edema vs PNA; Acute Hypoxemic Resp Failure; LISBETH Interval history: Patient is seen today for: Hypertensive Emergency; Acute (? Flash) Pulmonary Edema; Possible occult Pneumonia; Acute Hypoxemic Respiratory Failure; LISBETH on CKD; Acute Encephalopathy (Toxic Metabolic +/- Dementia element); Acute CHF exacerbation (HFrEF of 40%) Seen and examined at bedside; 24hour events reviewed; nursing and respiratory care staff consulted; no adverse overnight events reported to me; lying in bed; reported agitation yesterday, apparently pushed visitor in room: he denies acute chest pains or palpitations; No N/V/F/C Objective Vital Signs - 12hr 07/27/18 07/27/18 07/27/18 00:00 00:30 01:00 Temperature 98.7 F Pulse Rate 65 63 62 Pulse Rate [ 65 From Monitor] Respiratory 15 14 15 Rate Blood Pressure 117/64 108/57 101/58 O2 Sat by Pulse 97 97 97 Oximetry 07/27/18 07/27/18 07/27/18 01:30 02:00 02:06 Temperature Pulse Rate 70 61 Pulse Rate [ From Monitor] Respiratory 12 11 L Rate Blood Pressure 105/64 106/63 O2 Sat by Pulse 96 96 96 Oximetry 07/27/18 07/27/18 07/27/18 02:31 03:01 03:30 Temperature Pulse Rate 66 96 H 70 Pulse Rate [ From Monitor] Respiratory 14 24 14 Rate Blood Pressure 110/63 125/74 140/71 O2 Sat by Pulse 97 97 96 Oximetry 07/27/18 07/27/18 07/27/18 04:00 06:07 06:09 Temperature 97.5 F L Pulse Rate 69 69 Pulse Rate [ 62 From Monitor] Respiratory 14 Rate Blood Pressure 118/64 141/82 O2 Sat by Pulse 96 Oximetry 07/27/18 07/27/18 07/27/18 07:40 08:00 09:25 Temperature 98.4 F Pulse Rate 86 Pulse Rate [ From Monitor] Respiratory Rate Blood Pressure 132/75 O2 Sat by Pulse 96 Oximetry 07/27/18 09:26 Temperature Pulse Rate 85 Pulse Rate [ From Monitor] Respiratory Rate Blood Pressure 132/75 O2 Sat by Pulse Oximetry Constitutional: no acute distress, other (elderly AAM, normocephalic and atr aumatic with normal respiratory effort at rest) Eyes: non-icteric ENT: oropharynx moist Neck: supple, no lymphadenopathy, no JVD Effort: normal Ascultation: Bilateral: clear, diminished breath sounds, rhonchi Percussion: Bilateral: not dull Cardiovascular: irregular rhythm, murmur noted (ystolic) Gastrointestinal: normoactive bowel sounds, soft, non-tender, non-distended Integumentary: normal Extremities: no cyanosis, pulses normal, no ischemia or petechiae Neurologic: non-focal exam (grossly), pupils equal and round, CN II-XII normal Psychiatric: other (affect flat) CBC and BMP: 07/24/18 05:20 07/25/18 05:37 ABG, PT/INR, D-dimer: PT/INR, D-dimer PT 13.7 Sec. (12.2-14.9) 07/22/18 01:52 INR 0.99 (0.87-1.13) 07/22/18 01:52 Abnormal lab findings: Abnormal Labs 07/22/18 07/22/18 07/22/18 01:52 01:52 01:52 WBC RBC Hgb Hct Lymph % (Auto) 42.7 H [place] % (Auto) [place] # Seg Neutrophils % Seg Neutrophils # APTT 23.0 L Sodium 136 L Chloride Carbon Dioxide 21 L BUN Creatinine Glucose 256 H Calcium Magnesium Total Creatine Kinase CK-MB (CK-2) Albumin 07/22/18 07/22/18 07/22/18 01:52 04:40 10:31 WBC RBC Hgb Hct Lymph % (Auto) [place] % (Auto) [place] # Seg Neutrophils % Seg Neutrophils # APTT Sodium Chloride Carbon Dioxide BUN Creatinine Glucose Calcium Magnesium 2.80 H Total Creatine Kinase 256 H 282 H CK-MB (CK-2) 5.1 H 5.3 H Albumin 07/23/18 07/23/18 07/24/18 04:06 04:06 05:20 WBC 11.7 H RBC 5.41 H Hgb 16.5 H Hct 50.1 H Lymph % (Auto) 10.8 L [place] % (Auto) 10.1 H 8.2 H [place] # 1.2 H Seg Neutrophils % 79.0 H Seg Neutrophils # 9.3 H APTT Sodium 135 L Chloride 97.6 L Carbon Dioxide 21 L BUN 27 H Creatinine 1.7 H Glucose 125 H Calcium Magnesium Total Creatine Kinase CK-MB (CK-2) Albumin 07/24/18 07/25/18 05:20 05:37 WBC RBC Hgb Hct Lymph % (Auto) [place] % (Auto) [place] # Seg Neutrophils % Seg Neutrophils # APTT Sodium Chloride Carbon Dioxide BUN 33 H 29 H Creatinine 1.8 H Glucose Calcium 8.3 L Magnesium Total Creatine Kinase CK-MB (CK-2) Albumin 3.3 L Allied health notes reviewed: nursing
--- NOTE | 2018-07-27 14:46 | Progress Note ---
Assessment and Plan Currently stable cardiac status. Pt may tx out of IMCU to telemetry from cardiology standpoint. Possible d/c home as early as tomorrow AM. The patient has been seen in conjunction with Dr. Coleman who agrees with the assessment and plan of care. - Patient Problems (1) Acute heart failure with preserved ejection fraction Current Visit: Yes Status: Acute (2) Hypertensive urgency Current Visit: Yes Status: Acute (3) Renal insufficiency Current Visit: Yes Status: Acute (4) Atrial fibrillation Current Visit: Yes Status: Chronic (5) Cardiac pacemaker in situ Current Visit: Yes Status: Chronic (6) BPH (benign prostatic hyperplasia) Current Visit: Yes Status: Chronic Qualifiers: Lower urinary tract symptom presence: symptoms present Lower urinary tract symptom detail: urinary hesitancy Qualified Code(s): N40.1 - Benign prostatic hyperplasia with lower urinary tract symptoms; R39.11 - Hesitancy of micturition (7) HLD (hyperlipidemia) Current Visit: Yes Status: Chronic Qualifiers: Hyperlipidemia type: mixed hyperlipidemia Qualified Code(s): E78.2 - Mixed hyperlipidemia (8) Gout Current Visit: Yes Status: Chronic (9) Acute alteration in mental status Current Visit: Yes Status: Resolved Subjective Date of service: 07/27/18 Principal diagnosis: HTNsive Emergency; Pulm Edema vs PNA; Acute Hypoxemic Resp Failure; LISBETH Interval history: pt sitting up in chair, states he is feeling much better today. Objective Last Vital Signs Temp 97.4 F L 07/27/18 12:00 Pulse 85 07/27/18 09:26 Resp 21 07/27/18 08:00 BP 132/75 07/27/18 09:26 Pulse Ox 98 07/27/18 08:00 - Physical Examination General: No Apparent Distress HEENT: Positive: PERRL, Normocephaly, Mucus Membranes Moist Neck: Positive: neck supple, trachea midline Cardiac: Positive: Reg Rate and Rhythm, S1/S2 Lungs: Positive: Decreased Breath Sounds Neuro: Positive: Grossly Intact, Other Abdomen: Positive: Soft. Negative: Tender Skin: Negative: Rash, Wound Musculoskeletal: No Pain Extremities: Absent: edema - Imaging and Cardiology EKG: report reviewed, image reviewed Echo: pending, report reviewed (07/2017 showed EF 50-55%, grade 1 diastolic dysfunction, minimal MR, mild AR, mod TR, RVSP 42mmHg. ), other (07/23/2018 ef 45% septal hypokinesis , mild as and mild ai mild tr) Pacemaker: ventricular pacing w/capt - Allied health notes Allied health notes reviewed: nursing
--- NOTE | 2018-07-27 16:52 | Discharge Summary ---
Providers - Providers Date of Admission: 07/22/18 04:23 Date of discharge: 07/27/18 Attending physician: BILLY LUONG 07/22/18 04:23 Consult to Physician [CONS] Routine Comment: Consulting Provider: CHARLEY CHARLES Physician Instructions: Reason For Exam: pulmonary edema 07/22/18 11:17 Consult to Physician [CONS] Urgent Comment: CLD DR TIRADO TO ADV OF CONSULT @1132 Consulting Provider: DAJA TIRADO Physician Instructions: Reason For Exam: ICU 07/26/18 12:57 Consult to Physician [CONS] Routine Comment: Consulting Provider: JOVAN PEÑA Physician Instructions: Reason For Exam: encephalopathy 07/27/18 12:07 Physical Therapy Evaluation and Treat [CONS] Routine Comment: Reason For Exam: physical deconditioning Primary care physician: PEDIATRIC OPHTHALMOLOGIST Hospitalization Reason for admission: acute encephalopathy Condition: Critical Hospital course: 72-year-old male with history of hypertension, chronic kidney disease, BPH, gout was brought to the emergency room for acute onset of shortness of breath . He was found to be hypertensive in the emergency room with systolic blood pressure greater than 250s, respiratory distress, he was placed on BiPAP and started on nitroglycerin drip and given IV Lasix. He improved significantly and was transitioned from BiPAP to nasal cannula Patient is a very poor historian. Poor memory, awake and alert. Oriented to name only. She didn't is being transferred to psych unit in this facility Is medically stable for discharge Assessment and plan: Hypertensive emergency with DBP OF 135 on admission -off nitro drip -BP currently uncontrolled, hydralazine dose increased -cont coreg and amlodipine, adjust meds as needed Possible PNA -Continue oral antibiotic -blood cultures neg so far Acute respiratory failure with hypoxia, present on admission -off BIPAP -cont 02 supplementation as needed and PRN duoneb Acute on CKD stage 2 -off Lasix -IVF given, improved Acute on chronic diastolic and systolic HF -improved, off Lasix -Echo showed EF of 40-45% Acute metabolic encephalopathy -probable 2/2 acute infection versus underlying dementia -CT head neg -will monitor clinically dementia with behavioral disturbances -Haldol x1 given -cont PRN ativan -Neurology consulted Moderate malnutrition evidenced by poor oral intake with albumin of 3.3 -cont oral supplements Hypermagnesemia -resolved Hyperglycemia -hba1c:5.6 Hyperlipidemia, stable -cont home meds H/O Atrial fib -rate controlled -cont oral anticoagulation with eliquis H/O sick sinus syndrome -s/p pacemaker placement BPH, stable -cont home med gout -no acute flare-up -cont allopurinol Objective: Patient is awake and alert HEENT: Normocephalic pupils are round reactive to light throat is clear Neck: Supple no significant adenopathy no carotid bruit no JVD Lungs: Diminished breath sounds : Heart S1-S2 regular rate and rhythm Abdomen: Soft nontender Extremities: No leg edema [employer]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[employer]ER: Awake and alert, oriented to name Unable to telemetry his age or present month present year Recall 0/3 Serial sevens very poor Disposition: [id number] PSY HOSP/PSY UNIT Time spent for discharge: 40 min Core Measure Documentation - Palliative Care Palliative Care/ Comfort Measures: Not Applicable - Core Measures Any of the following diagnoses?: none Exam - Constitutional Vitals: Temp Pulse Resp BP Pulse Ox 98.2 F 85 21 132/75 98 07/27/18 16:00 07/27/18 09:26 07/27/18 08:00 07/27/18 09:26 07/27/18 08:00 Plan Activity: fall precautions Weight Bearing Status: Weight Bear as Tolerated Diet: regular, low fat, low cholesterol, low salt Durable Medical Equipment Needed Upon Discharge: other (needs assistance) Follow up with: BENNIE ENGLAND MD [Primary Care Provider] - 7 Days PATEL DAVE MD [Staff Physician] - 7 Days ([facility], 08/03/2018 @ 11:15AM)
[2018-07-27 17:45] VITALS: BP 125/71
== END 2018-07-27 18:50 | disposition home or self-care (01) | DRG 291 ==
LOC: ED 01:40 → CC1 04:23 → IMCU 16:58
PROVIDERS: ADMIT Internal Medicine; ATTEND Internal Medicine
PROC: 5A09357 Assistance with Respiratory Ventilation, Less than 24 Consecutive Hours, Continuous Positive Airway Pressure (ICD-10-PCS; principal; 2018-07-22)
DX: I13.0 Hypertensive heart and chronic kidney disease with heart failure and stage 1 through stage 4 chronic kidney disease, or unspecified chronic kidney disease (principal); G93.41 Metabolic encephalopathy; J96.01 Acute respiratory failure with hypoxia; I50.43 Acute on chronic combined systolic (congestive) and diastolic (congestive) heart failure; J18.9 Pneumonia, unspecified organism; N17.9 Acute kidney failure, unspecified; I16.1 Hypertensive emergency; F03.91 Unspecified dementia, unspecified severity, with behavioral disturbance; E44.0 Moderate protein-calorie malnutrition; M10.9 Gout, unspecified; E83.41 Hypermagnesemia; R73.9 Hyperglycemia, unspecified; I48.91 Unspecified atrial fibrillation; N18.3 Chronic kidney disease, stage 3 (moderate); N40.1 Benign prostatic hyperplasia with lower urinary tract symptoms; R39.11 Hesitancy of micturition; E78.2 Mixed hyperlipidemia; Z68.21 Body mass index [BMI] 21.0-21.9, adult; Z82.49 Family history of ischemic heart disease and other diseases of the circulatory system; Z95.0 Presence of cardiac pacemaker; Z79.899 Other long term (current) drug therapy; Z79.01 Long term (current) use of anticoagulants
CPT/HCPCS: 36415; 70450; 71045; 80048; 80053; 81001; 82550; 82553; 83036; 83735; 84484; 85025; 85610; 85730; 87040; 87086; 93005; 93010; 93306; 94640; 94760; G0378; A9270-GY; J0360; J0456; J0696; J1200; J1940; J1956; J2060; J7030; J7050

== ENCOUNTER 2018-07-27 17:07 | Inpatient (IN) | payer MEDICARE, OTHER ==
[2018-07-27] MEDS ORDERED: ATIVAN PO PRN (21:33)
[2018-07-27] MEDS ORDERED: GEODON PO PRN (21:35)
[2018-07-27] MEDS: COREG PO SCH (22:28)
[2018-07-27] MEDS: APRESOLINE PO SCH (22:29)
[2018-07-27] MEDS: PRAVACHOL PO SCH (22:29)
[2018-07-27] MEDS: COLCHICINE PO SCH (22:29)
[2018-07-27] MEDS: ELIQUIS PO SCH (23:24)
[2018-07-28] MEDS: APRESOLINE PO SCH ×3 (06:02→22:01)
[2018-07-28 08:27] LABS: Basophils % (Auto) 0.6 % (0.0-1.8); Eosinophils # (Auto) 0.2 K/mm3 (0.0-0.4); Eosinophils % (Auto) 2.4 % (0.0-4.3); Hematocrit 46.3 % (35.5-45.6); Hemoglobin 15.6 gm/dl (11.8-15.2); Lymphocytes # (Auto) 2.8 K/mm3 (1.2-5.4); Lymphocytes % (Auto) 35.8 % (13.4-35.0); Mean Corpuscular HGB Conc 34 % (32-34); Mean Corpuscular Volume 91 fl (84-94); Monocytes # (Auto) 0.6 K/mm3 (0.0-0.8); Monocytes % (Auto) 7.6 % (0.0-7.3); Platelet Count 211 K/mm3 (140-440); Red Blood Count 5.07 M/mm3 (3.65-5.03); Red Cell Distribution Width 14.3 % (13.2-15.2)
[2018-07-28 08:44] LABS: Albumin 3.8 g/dL (3.9-5); Calcium 9.1 mg/dL (8.4-10.2)
[2018-07-28] MEDS: COLCHICINE PO SCH (10:00)
[2018-07-28] MEDS: NORVASC PO SCH (10:00)
[2018-07-28] MEDS: ELIQUIS PO SCH (10:06)
[2018-07-28] MEDS: COREG PO SCH ×2 (10:08→22:00)
--- NOTE | 2018-07-28 17:51 | History and Physical Report ---
GP History & Physical - History of Present Illness Date of admission: 07/28/18 Date of Examination: 07/28/18 Reason for Admission: Impaired reality testing, Failure of Outpatient Treatment, Severe anxiety/depression, Unable to care for self Chief Complaint: "I AM LOOSING MY MIND I GUESS" History of Present Illness: Mr. Gera Toribio is 72-year-old -[place] female. He was admitted at [facility] psych unit here at [facility] because of reported hallucinations and also because of patient's loosing his memory with some behavioral issues. Patient has overt cognitive and memory deficit "close she however is realizing that his brain is not functioning as clear as he would like to and he is afraid that he is "losing his mind "close Patient is calmer and cooperative. She was grossly asymptomatic besides his complaint that he is "losing my mind "close and also that his memory is not "not good "close. Patient otherwise is grossly asymptomatic and he was cooperative. Patient was reassured and educated about the need for the treatment. Legal Status: Voluntary Patient Problems: Current Active Problems Psychosis (Acute) Schizophrenia (Acute) Reaction to Hospitalization: Accepting (PATIENT NEEDS TO BE STABILIZED ON HIS PSYCOTROPIC MEDICINES.) Substance History - Substance History Hx Tobacco Use: No Alcohol Use: Yes (POSSIBLE PAST USE OF ALCOHAL.) Past psychiatric history - Past Medical History Past Medical History: hypertension - past Psychiatric treatment and history Psych: Psychosis - Social History Social history: Review of Systems Psychiatric: anxiety, memory loss, change in sleep habits, hallucinations Results - Results Labs/Vitals: Laboratory Last Values WBC 7.7 K/mm3 (4.5-11.0) 07/28/18 08:05 RBC 5.07 M/mm3 (3.65-5.03) H 07/28/18 08:05 Hgb 15.6 gm/dl (11.8-15.2) H 07/28/18 08:05 Hct 46.3 % (35.5-45.6) H 07/28/18 08:05 MCV 91 fl (84-94) 07/28/18 08:05 MCH 31 pg (28-32) 07/28/18 08:05 MCHC 34 % (32-34) 07/28/18 08:05 RDW 14.3 % (13.2-15.2) 07/28/18 08:05 Plt Count 211 K/mm3 (140-440) 07/28/18 08:05 Lymph % (Auto) 35.8 % (13.4-35.0) H 07/28/18 08:05 Potter % (Auto) 7.6 % (0.0-7.3) H 07/28/18 08:05 Eos % (Auto) 2.4 % (0.0-4.3) 07/28/18 08:05 Baso % (Auto) 0.6 % (0.0-1.8) 07/28/18 08:05 Lymph # 2.8 K/mm3 (1.2-5.4) 07/28/18 08:05 Potter # 0.6 K/mm3 (0.0-0.8) 07/28/18 08:05 Eos # 0.2 K/mm3 (0.0-0.4) 07/28/18 08:05 Baso # 0.0 K/mm3 (0.0-0.1) 07/28/18 08:05 Seg Neutrophils % 53.6 % (40.0-70.0) 07/28/18 08:05 Seg Neutrophils # 4.1 K/mm3 (1.8-7.7) 07/28/18 08:05 Sodium 137 mmol/L (137-145) 07/28/18 08:05 Potassium 3.5 mmol/L (3.6-5.0) L 07/28/18 08:05 Chloride 99.3 mmol/L (98-107) 07/28/18 08:05 Carbon Dioxide 24 mmol/L (22-30) 07/28/18 08:05 Anion Gap 17 mmol/L 07/28/18 08:05 BUN 20 mg/dL (9-20) 07/28/18 08:05 Creatinine 1.5 mg/dL (0.8-1.5) 07/28/18 08:05 Estimated GFR 56 ml/min 07/28/18 08:05 BUN/Creatinine Ratio 13 % 07/28/18 08:05 Glucose 91 mg/dL (75-100) 07/28/18 08:05 Calcium 9.1 mg/dL (8.4-10.2) 07/28/18 08:05 Total Bilirubin 0.60 mg/dL (0.1-1.2) 07/28/18 08:05 AST 30 units/L (5-40) 07/28/18 08:05 ALT 30 units/L (7-56) 07/28/18 08:05 Alkaline Phosphatase 100 units/L (35-129) 07/28/18 08:05 Total Protein 7.6 g/dL (6.3-8.2) 07/28/18 08:05 Albumin 3.8 g/dL (3.9-5) L 07/28/18 08:05 Albumin/Globulin Ratio 1.0 % 07/28/18 08:05 Last Vital Signs Temp 97.5 F L 07/28/18 05:56 Pulse 65 07/28/18 14:30 Resp 18 07/28/18 10:03 BP 150/79 07/28/18 14:30 Pulse Ox 98 07/28/18 14:05 Physical Examination - Constitutional Vitals: Vital Signs Temp Pulse Resp BP Pulse Ox 97.5 F L 65 18 150/79 98 07/28/18 05:56 07/28/18 14:30 07/28/18 10:03 07/28/18 14:30 07/28/18 14:05 Temperature -Last 24 Hours Temperature 97.5 F Temperature 98.1 F General appearance: Present: no acute distress Mental Status Exam - Vital signs Last Vital Signs Temp 97.5 F L 07/28/18 05:56 Pulse 65 07/28/18 14:30 Resp 18 07/28/18 10:03 BP 150/79 07/28/18 14:30 Pulse Ox 98 07/28/18 14:05 - Exam Orientation: place, person Affect: anxious Mood: congruent with affect Thought content: paranoia Thought Process: Tangential Perceptions: hallucinations Speech: slow Concentration: distractible Motor activity: normal Level of consciousness: alert Memory: Remote Intact, Recent Impaired Interaction: cooperative Assessment and Plan - Psychiatric problem (1) Schizophrenia Current Visit: Yes Status: Acute (2) Psychosis Current Visit: Yes Status: Acute Qualifiers: Psychosis type: unspecified psychosis type Qualified Code(s): F29 - Unspecified psychosis not due to a substance or known physiological condition Physician Certification - Certification Statement Physician Certification Statement: This is an acknowledgement statement that GERA TORIBIO is a 72 year old M who requires inpatient psychiatric admission for treatment which could reasonably be expected to improve the patient's condition for Estimated period of time patient will need to remain in the hospital: [ ] Plan for post-hospital care: [ ]
[2018-07-28 18:38] LABS: Bilirubin,Urine NEG (Negative); Blood,Urine SM (Negative); Color,Urine Yellow (Yellow); Hyaline Casts,Urine 6 /LPF; Urobilinogen,Urine < 2.0 mg/dL (<2.0)
[2018-07-28] MEDS: PRAVACHOL PO SCH (22:09)
[2018-07-29] MEDS: APRESOLINE PO SCH ×3 (06:03→22:14)
[2018-07-29] MEDS: ELIQUIS PO SCH ×2 (09:00→22:13)
[2018-07-29] MEDS: NORVASC PO SCH (09:01)
[2018-07-29] MEDS: COREG PO SCH ×2 (09:01→22:15)
--- NOTE | 2018-07-29 15:13 | Consultation ---
History of Present Illness - Reason for Consult Consult date: 07/29/18 HTN Requesting physician: NATE FORBES - History of Present Illness 72 YO Male with Anxiety, Depression, Schizophrenia, Psychosis, HTN, Cardiomyopathy S/P Pacemaker Placement. Consult placed for HTN. Pt seen and evaluated in his room. Pt denies fever, chills, CP, Palpitations, NVD, Trauma, BRBPR, Shortness of breath, productive cough, skin rash, or recent ill contacts. Pt resting comfortably. No reported nursing events. Past History Past Medical History: hypertension, other (Cardiomyopathy) Past Surgical History: Other (Pacemaker placement) Social history: Family history: hypertension Medications and Allergies Allergies Allergy/AdvReac Type Severity Reaction Status Date / Time No Known Allergies Allergy Unverified 06/29/15 13:23 Home Medications Medication Instructions Recorded Confirmed Last Taken Type Apixaban [Eliquis] 5 mg PO Q12H 06/16/17 07/27/18 07/27/18 History ALBUTEROL NEB's [Proventil 0.083% 2.5 mg IH TIDRT PRN nebu 07/27/18 07/27/18 Unknown Rx NEBS] Acetaminophen [Acetaminophen TAB] 650 mg PO Q4H PRN tablet 07/27/18 07/27/18 Unknown Rx Allopurinol [Zyloprim] 100 mg PO QDAY tablet 07/27/18 07/27/18 Unknown Rx Carvedilol [Coreg] 6.25 mg PO BID tablet 07/27/18 07/27/18 07/27/18 Rx Dutasteride (Nf) [Avodart (Nf)] 0.5 mg PO DAILY capsule 07/27/18 07/27/18 07/27/18 Rx LORazepam [Ativan INJ] 1 mg IV Q4H PRN vial 07/27/18 07/27/18 Unknown Rx Pravastatin [Pravachol] 80 mg PO QHS tablet 07/27/18 07/27/18 07/27/18 Rx QUEtiapine [SEROquel] 50 mg PO BID tablet 07/27/18 07/27/18 07/27/18 Rx amLODIPine [Norvasc] 10 mg PO QDAY tablet 07/27/18 07/27/18 07/27/18 Rx hydrALAZINE [Apresoline TAB] 75 mg PO Q8HR tablet 07/27/18 07/27/18 07/27/18 Rx Active Meds: Active Medications Amlodipine Besylate (Norvasc) 10 mg PO QDAY [facility] Last Admin: 07/29/18 09:01 Dose: 10 mg Documented by: Apixaban (Eliquis) 5 mg PO Q12HR [facility]; Protocol Last Admin: 07/29/18 09:00 Dose: 5 mg Documented by: Carvedilol (Coreg) 6.25 mg PO BID [facility] Last Admin: 07/29/18 09:01 Dose: 6.25 mg Documented by: Hydralazine HCl (Apresoline) 75 mg PO Q8HR [facility] Last Admin: 07/29/18 13:34 Dose: 75 mg Documented by: Lorazepam (Ativan) 1 mg PO Q8HR PRN PRN Reason: Agitation Pravastatin Sodium (Pravachol) 80 mg PO QHS [facility] Last Admin: 07/28/18 22:09 Dose: 80 mg Documented by: Quetiapine Fumarate (Seroquel) 25 mg PO 1000,1700 [facility] Last Admin: 07/29/18 09:01 Dose: 25 mg Documented by: Quetiapine Fumarate (Seroquel) 50 mg PO QHS [facility] Trazodone HCl (Desyrel) 50 mg PO QHS PRN PRN Reason: Insomnia Ziprasidone (Geodon) 20 mg PO Q8H PRN PRN Reason: Agitation Review of Systems Constitutional: no weight loss, no weight gain, no fever, no chills Ears, nose, mouth and throat: no ear pain, no ear discharge, no tinnitis, no decreased hearing, no nose pain Cardiovascular: no chest pain, no orthopnea, no palpitations, no rapid/irregular heart beat, no edema, no syncope Respiratory: no cough, no cough with sputum, no excessive sputum, no hemoptysis, no shortness of breath Gastrointestinal: no nausea, no vomiting, no diarrhea, no constipation, no change in bowel habits Genitourinary Male: no hematuria, no flank pain, no discharge, no urinary frequency, no urinary hesitancy, no nocturia Rectal: no pain, no incontinence, no bleeding Musculoskeletal: no neck stiffness, no neck pain, no shooting arm pain, no arm numbness/tingling, no low back pain, no shooting leg pain Integumentary: no rash, no pruritis, no redness, no sores, no wounds Neurological: no head injury, no transient paralysis, no paralysis, no weakness, no parathesias, no numbness, no seizures Psychiatric: no anxiety, no memory loss, no change in sleep habits, no sleep disturbances, no insomnia, no change in libido Endocrine: no cold intolerance, no heat intolerance, no polyphagia, no excessive thirst, no polydipsia, no polyuria Hematologic/Lymphatic: no easy bruising, no easy bleeding, no lymphadenopathy Allergic/Immunologic: no urticaria, no anaphylaxis Exam - Constitutional Vitals: Temp Pulse Resp BP Pulse Ox 97.5 F L 78 18 148/74 98 07/28/18 05:56 07/29/18 13:34 07/28/18 10:03 07/29/18 13:34 07/28/18 14:05 General appearance: Present: no acute distress, well-nourished - EENT Eyes: Present: PERRL ENT: hearing intact, clear oral mucosa - Neck Neck: Present: supple, normal ROM - Respiratory Respiratory effort: normal Respiratory: bilateral: CTA - Cardiovascular Heart Sounds: Present: S1 & S2. Absent: rub, click - Extremities Extremities: pulses symmetrical, No edema Peripheral Pulses: within normal limits - Abdominal General gastrointestinal: Present: soft, non-tender, non-distended, normal bowel sounds Male genitourinary: Present: normal - Integumentary Integumentary: Present: clear, warm, dry - Musculoskeletal Musculoskeletal: gait normal, strength equal bilaterally - Psychiatric Psychiatric: appropriate mood/affect, intact judgment & insight - Neurologic Neurologic: CNII-XII intact, moves all extremities Results - Labs CBC & Chem 7: 07/28/18 08:05 07/28/18 08:05 Assessment and Plan - Patient Problems (1) HTN (hypertension) Current Visit: Yes Status: Acute Qualifiers: Hypertension type: essential hypertension Qualified Code(s): I10 - Essential (primary) hypertension Plan to address problem: Monitor BP q shift, continue medical management, (2) Cardiomyopathy Current Visit: Yes Status: Acute Qualifiers: Cardiomyopathy type: unspecified Qualified Code(s): I42.9 - Cardiomyopathy, unspecified Plan to address problem: S/P Pacemaker placement, continue current therapy, blood pressure control, low sodium diet.
--- NOTE | 2018-07-29 17:40 | Progress Note ---
Subjective Date of service: 07/29/18 Subjective Comment: Mr. Toribio was seen today and I have discussed the case with the staff. Mr. Toribio is in good spirits he was seen while he was eating his dinner. He continued to have difficulties with his memory and some confusion .He could not recall the exact date,the month or the year and that made him bit anxious. All in all patient is in good spirits and he was grossly asymptomatic. Mental status examination patient is alert and oriented to place and person but he is not oriented to date the month of the year. Patient denies any active auditory or visual hallucinations and denies any suicidal or homicidal ideations .His judgment and insight is bit impaired. Plan plan for the patient is to add medications to help with his memory problem and I have discussed with the patient that I will put him on Aricept the genetic name is [email or web address] ,will go ahead and get started the medications tonight to help patient with prevention of further losing his memory. risk and benefits of the medication discussed with the patient and he agreed to take the meds Assessment and Plan - Patient Problems (1) Schizophrenia Current Visit: Yes Status: Acute (2) Psychosis Current Visit: Yes Status: Acute Qualifiers: Psychosis type: unspecified psychosis type Qualified Code(s): F29 - Unspecified psychosis not due to a substance or known physiological condition
[2018-07-29] MEDS: ARICEPT PO SCH (22:15)
[2018-07-29] MEDS: PRAVACHOL PO SCH (22:16)
[2018-07-30] MEDS: APRESOLINE PO SCH ×3 (06:01→21:30)
[2018-07-30 09:07] LABS: BUN/Creatinine Ratio 15; Blood Urea Nitrogen 21 mg/dL (9-20); Calcium 8.8 mg/dL (8.4-10.2); Hemolysis Index 12
[2018-07-30] MEDS: NORVASC PO SCH (09:35)
[2018-07-30] MEDS: ELIQUIS PO SCH ×2 (09:37→21:28)
[2018-07-30] MEDS: COREG PO SCH ×2 (09:38→21:29)
[2018-07-30] MEDS ORDERED: K-DUR PO ONE ×2 (14:17→17:00)
--- NOTE | 2018-07-30 14:18 | Consultation ---
History of Present Illness - Reason for Consult Consult date: 07/30/18 hypokalemia Requesting physician: NATE FORBES - History of Present Illness 72 YO Male with Anxiety, Depression, Schizophrenia, Psychosis, HTN, Cardiomyopathy S/P Pacemaker Placement. Consult placed for Hypokalemia. Pt seen and evaluated in his room. Pt denies fever, chills, CP, Palpitations, NVD, Trauma, BRBPR, Shortness of breath, productive cough, skin rash, or recent ill contacts. Pt resting comfortably. No reported nursing events. Past History Past Medical History: hypertension, other (Cardiomyopathy) Past Surgical History: Other (Pacemaker placement) Social history: Family history: hypertension Medications and Allergies Allergies Allergy/AdvReac Type Severity Reaction Status Date / Time No Known Allergies Allergy Unverified 06/29/15 13:23 Home Medications Medication Instructions Recorded Confirmed Last Taken Type Apixaban [Eliquis] 5 mg PO Q12H 06/16/17 07/27/18 07/27/18 History ALBUTEROL NEB's [Proventil 0.083% 2.5 mg IH TIDRT PRN nebu 07/27/18 07/27/18 Unknown Rx NEBS] Acetaminophen [Acetaminophen TAB] 650 mg PO Q4H PRN tablet 07/27/18 07/27/18 Unknown Rx Allopurinol [Zyloprim] 100 mg PO QDAY tablet 07/27/18 07/27/18 Unknown Rx Carvedilol [Coreg] 6.25 mg PO BID tablet 07/27/18 07/27/18 07/27/18 Rx Dutasteride (Nf) [Avodart (Nf)] 0.5 mg PO DAILY capsule 07/27/18 07/27/18 07/27/18 Rx LORazepam [Ativan INJ] 1 mg IV Q4H PRN vial 07/27/18 07/27/18 Unknown Rx Pravastatin [Pravachol] 80 mg PO QHS tablet 07/27/18 07/27/18 07/27/18 Rx QUEtiapine [SEROquel] 50 mg PO BID tablet 07/27/18 07/27/18 07/27/18 Rx amLODIPine [Norvasc] 10 mg PO QDAY tablet 07/27/18 07/27/18 07/27/18 Rx hydrALAZINE [Apresoline TAB] 75 mg PO Q8HR tablet 07/27/18 07/27/18 07/27/18 Rx Active Meds: Active Medications Amlodipine Besylate (Norvasc) 10 mg PO QDAY [facility] Last Admin: 07/30/18 09:35 Dose: 10 mg Documented by: Apixaban (Eliquis) 5 mg PO Q12HR [facility]; Protocol Last Admin: 07/30/18 09:37 Dose: 5 mg Documented by: Carvedilol (Coreg) 6.25 mg PO BID [facility] Last Admin: 07/30/18 09:38 Dose: 6.25 mg Documented by: Donepezil HCl (Aricept) 5 mg PO QHS [facility] Last Admin: 07/29/18 22:15 Dose: 5 mg Documented by: Hydralazine HCl (Apresoline) 75 mg PO Q8HR [facility] Last Admin: 07/30/18 06:01 Dose: 75 mg Documented by: Lorazepam (Ativan) 1 mg PO Q8HR PRN PRN Reason: Agitation Pravastatin Sodium (Pravachol) 80 mg PO QHS [facility] Last Admin: 07/29/18 22:16 Dose: 80 mg Documented by: Quetiapine Fumarate (Seroquel) 25 mg PO 1000,1700 [facility] Last Admin: 07/30/18 09:38 Dose: 25 mg Documented by: Quetiapine Fumarate (Seroquel) 50 mg PO QHS [facility] Last Admin: 07/29/18 22:14 Dose: 50 mg Documented by: Trazodone HCl (Desyrel) 50 mg PO QHS PRN PRN Reason: Insomnia Ziprasidone (Geodon) 20 mg PO Q8H PRN PRN Reason: Agitation Review of Systems Constitutional: no weight loss, no weight gain, no fever, no chills Ears, nose, mouth and throat: no ear pain, no ear discharge, no tinnitis, no decreased hearing, no nose pain Cardiovascular: no chest pain, no orthopnea, no palpitations, no rapid/irregular heart beat, no edema Respiratory: no cough, no cough with sputum, no excessive sputum, no hemoptysis, no shortness of breath Gastrointestinal: no abdominal pain, no nausea, no vomiting, no diarrhea, no constipation Genitourinary Male: no dysuria, no hematuria, no flank pain, no discharge, no urinary frequency, no urinary hesitancy Rectal: no pain, no incontinence, no bleeding Musculoskeletal: no neck stiffness, no neck pain, no shooting arm pain, no arm numbness/tingling, no low back pain Integumentary: no rash, no pruritis, no redness, no sores, no jaundice Neurological: no head injury, no transient paralysis, no paralysis, no weakness, no parathesias, no numbness, no tingling Psychiatric: no anxiety, no memory loss, no change in sleep habits, no sleep disturbances, no insomnia Endocrine: no cold intolerance, no heat intolerance, no polyphagia, no excessive thirst, no polydipsia Hematologic/Lymphatic: no easy bruising, no easy bleeding, no lymphedema Allergic/Immunologic: no urticaria, no allergic rhinitis, no wheezing, no persistent infections, no anaphylaxis, no angioedema Exam - Constitutional Vitals: Temp Pulse Resp BP Pulse Ox 98.0 F 85 18 139/76 97 07/30/18 09:18 07/30/18 09:38 07/30/18 05:57 07/30/18 09:38 07/30/18 09:15 General appearance: Present: no acute distress, well-nourished Results - Labs CBC & Chem 7: 07/28/18 08:05 07/30/18 07:00 Labs: Abnormal lab results 07/30/18 Range/Units 07:00 Potassium 3.3 L (3.6-5.0) mmol/L Carbon Dioxide 21 L (22-30) mmol/L BUN 21 H (9-20) mg/dL Assessment and Plan - Patient Problems (1) HTN (hypertension) Current Visit: Yes Status: Acute Qualifiers: Hypertension type: essential hypertension Qualified Code(s): I10 - Essenti al (primary) hypertension Plan to address problem: Monitor BP q shift, continue medical management, (2) Cardiomyopathy Current Visit: Yes Status: Acute Qualifiers: Cardiomyopathy type: unspecified Qualified Code(s): I42.9 - Cardiomyopathy, unspecified Plan to address problem: S/P Pacemaker placement, continue current therapy, blood pressure control, low sodium diet. (3) Hypokalemia Current Visit: Yes Status: Acute Plan to address problem: Recommend magnesium level, potassium replacement, supportive care,
[2018-07-30] MEDS ORDERED: APRESOLINE ONE (14:50)
--- NOTE | 2018-07-30 17:43 | Progress Note ---
Subjective Date of service: 07/30/18 Principal diagnosis: dementia with behavioral disturbances, psychotic disorder no's Subjective Comment: This is the daily progress note on patient's name Gera Toribio. Patient seen today and case discussed with the staff. Earlier today I had the treatment team meeting and I have discussed the case of this patient's in detail and the treatment plan was discussed with the treatment team. Patient seen today with his family. His and his son was there in the consultation room. I spoke to both patient's and his son. Patient's reported that he is getting increasingly forgetful and "confused ". However, she denies any hallucination on this patient. It is not clear what she meant by confusion and it's not clear if patient was hallucinating at that time. Patient also was having difficulties with breathing at that time and later was told to them that he had some "fluids " in his lungs for which she was treated. Patient's is primarily concerned about patient's forgetfulness and his difficulties with doing activities of daily livings. Patient and his son were educated about the dementia medications that I have just started on this patient. They were educated about Aricept( ARRICEPT) and they were educated a bout the risk and benefit of this medication. Patient is alert and in pleasant mood. He was not aware of the month or the year. He has difficulties recalling the words but he was very well able to recognize his and his son. When I asked him who is this gentleman pointing towards his son, he immediately reported "my son "" and then he said my reflection " . that shows very good insight on the patient's side. his understanding about his memory problem is somewhat limited but all in all he seems to have a very good insight into his situation. Patient denies any active auditory or visual hallucination. He denies any significant symptoms of depression. Denies any suicidal or homicidal ideations. Patient denies any side effects from the medications and is tolerating his medications quite well. Plan plan for the patient is to continue the current medications. I have educated patient and his family that I will continue to monitor his medications and we'll slowly increase the dose of Aricept to at least 10 mg at night to help him with his memory. Both patients and his family have agreed upon the treatment plan. Patient was also seen by the medical consultation this morning for his low potassium. I recommended potassium supplement but according to the medical consultations there was no urgent need for any supplement of potassium at this time. I agreed with the consultation and to continue to monitor the patient's and we'll continue the current treatment Assessment and Plan - Patient Problems (1) Schizophrenia Current Visit: Yes Status: Acute (2) Psychosis Current Visit: Yes Status: Acute Qualifiers: Psychosis type: unspecified psychosis type Qualified Code(s): F29 - Unspecified psychosis not due to a substance or known physiological condition
[2018-07-30] MEDS: PRAVACHOL PO SCH (21:30)
[2018-07-30] MEDS: ARICEPT PO SCH (21:30)
[2018-07-30] MEDS ORDERED: K-DUR PO SCH (22:00)
[2018-07-31] MEDS: DESYREL PO PRN ×2 (01:54→22:13)
[2018-07-31] MEDS: APRESOLINE PO SCH ×3 (06:00→22:16)
[2018-07-31 07:41] LABS: BUN/Creatinine Ratio 14; Blood Urea Nitrogen 19 mg/dL (9-20); Calcium 8.7 mg/dL (8.4-10.2); Hemolysis Index 4
[2018-07-31] MEDS: NORVASC PO SCH (09:46)
[2018-07-31] MEDS: COREG PO SCH ×2 (09:46→22:14)
[2018-07-31] MEDS: ELIQUIS PO SCH ×3 (09:47→22:24)
--- NOTE | 2018-07-31 16:37 | Progress Note ---
Assessment and Plan Assessment and plan: Schizophrenia with psychosis Admitted to Geriatric Psych Unit Psych attending On niko Hughes. Continue Aricept. Hypertension BP stable Continue Coreg and hydralazine. Hyperlipidemia Pravachol Full code status History Interval history: Patient with schizophrenia, psychosis hospitalist service consulted for medical management of Hypertension, hypokalemia Hospitalist Physical - Physical exam Narrative exam: GEN: Not in acute distress, Morbid Obesity HEENT: Normocephalic, atraumatic, Neck: supple, No JVD Lungs: Clear to auscultation bilaterally, no crackles Abd:soft, non tender, non distended, normal bowel sounds Ext: No edema, no clubbing, no cyanosis Neuro:Awake,alert,oriented x 3, No confusion currently, moves all ext Skin:No rash - Constitutional Vitals: Temp Pulse Resp BP Pulse Ox 98.3 F 82 18 126/71 97 07/31/18 05:42 07/31/18 14:14 07/31/18 05:42 07/31/18 14:14 07/31/18 05:42 General appearance: Present: no acute distress Results - Labs CBC & Chem 7: 07/28/18 08:05 07/31/18 06:59 Labs: Laboratory Last Values WBC 7.7 K/mm3 (4.5-11.0) 07/28/18 08:05 RBC 5.07 M/mm3 (3.65-5.03) H 07/28/18 08:05 Hgb 15.6 gm/dl (11.8-15.2) H 07/28/18 08:05 Hct 46.3 % (35.5-45.6) H 07/28/18 08:05 MCV 91 fl (84-94) 07/28/18 08:05 MCH 31 pg (28-32) 07/28/18 08:05 MCHC 34 % (32-34) 07/28/18 08:05 RDW 14.3 % (13.2-15.2) 07/28/18 08:05 Plt Count 211 K/mm3 (140-440) 07/28/18 08:05 Lymph % (Auto) 35.8 % (13.4-35.0) H 07/28/18 08:05 [place] % (Auto) 7.6 % (0.0-7.3) H 07/28/18 08:05 Eos % (Auto) 2.4 % (0.0-4.3) 07/28/18 08:05 Baso % (Auto) 0.6 % (0.0-1.8) 07/28/18 08:05 Lymph # 2.8 K/mm3 (1.2-5.4) 07/28/18 08:05 [place] # 0.6 K/mm3 (0.0-0.8) 07/28/18 08:05 Eos # 0.2 K/mm3 (0.0-0.4) 07/28/18 08:05 Baso # 0.0 K/mm3 (0.0-0.1) 07/28/18 08:05 Seg Neutrophils % 53.6 % (40.0-70.0) 07/28/18 08:05 Seg Neutrophils # 4.1 K/mm3 (1.8-7.7) 07/28/18 08:05 Sodium 141 mmol/L (137-145) 07/31/18 06:59 Potassium 3.6 mmol/L (3.6-5.0) 07/31/18 06:59 Chloride 105.9 mmol/L (98-107) 07/31/18 06:59 Carbon Dioxide 23 mmol/L (22-30) 07/31/18 06:59 Anion Gap 16 mmol/L 07/31/18 06:59 BUN 19 mg/dL (9-20) 07/31/18 06:59 Creatinine 1.4 mg/dL (0.8-1.5) 07/31/18 06:59 Estimated GFR > 60 ml/min 07/31/18 06:59 BUN/Creatinine Ratio 14 % 07/31/18 06:59 Glucose 95 mg/dL (75-100) 07/31/18 06:59 Calcium 8.7 mg/dL (8.4-10.2) 07/31/18 06:59 Magnesium 2.00 mg/dL (1.7-2.3) 07/30/18 14:32 Total Bilirubin 0.60 mg/dL (0.1-1.2) 07/28/18 08:05 AST 30 units/L (5-40) 07/28/18 08:05 ALT 30 units/L (7-56) 07/28/18 08:05 Alkaline Phosphatase 100 units/L (35-129) 07/28/18 08:05 Total Protein 7.6 g/dL (6.3-8.2) 07/28/18 08:05 Albumin 3.8 g/dL (3.9-5) L 07/28/18 08:05 Albumin/Globulin Ratio 1.0 % 07/28/18 08:05 Urine Color Yellow (Yellow) 07/28/18 17:59 Urine Turbidity Clear (Clear) 07/28/18 17:59 Urine pH 5.0 (5.0-7.0) 07/28/18 17:59 Ur Specific [place] 1.011 (1.003-1.030) 07/28/18 17:59 Urine Protein 100 mg/dl mg/dL (Negative) 07/28/18 17:59 Urine Glucose (UA) Neg mg/dL (Negative) 07/28/18 17:59 Urine Ketones Neg mg/dL (Negative) 07/28/18 17:59 Urine Blood Sm (Negative) 07/28/18 17:59 Urine Nitrite Neg (Negative) 07/28/18 17:59 Urine Bilirubin Neg (Negative) 07/28/18 17:59 Urine Urobilinogen < 2.0 mg/dL (<2.0) 07/28/18 17:59 Ur Leukocyte Esterase Neg (Negative) 07/28/18 17:59 Urine WBC (Auto) 1.0 /HPF (0.0-6.0) 07/28/18 17:59 Urine RBC (Auto) 10.0 /HPF (0.0-6.0) 07/28/18 17:59 U Epithel Cells (Auto) < 1.0 /HPF (0-13.0) 07/28/18 17:59 Hyaline Casts 6 /LPF 07/28/18 17:59
--- NOTE | 2018-07-31 17:46 | Progress Note ---
Subjective Date of service: 07/31/18 Principal diagnosis: dementia with behavioral disturbances, psychotic disorder no's Subjective Comment: Patient seen today and case discussed with the staff. Patient reports feeling "well "close however, she still have some confusion and admits having diffi culties with his memory. Patient was reassured and I told him that it will take a while before the medications gets into his system and patient was reeducated about his medicine. Mental status examination patient is alert and oriented to place and person he was not aware of the exact date and 3 words recall in 5 minutes was only 1 out of 3. Vision denies any auditory or visual hallucination denies any suicidal or homicidal ideations and denies any side effects from medications. Plan plan for the patient is to continue the current treatment I also have reviewed his labs his potassium has came back as 3.6 which is within normal range vision was reassured and that discussed with the patient Assessment and Plan - Patient Problems (1) Schizophrenia Current Visit: Yes Status: Acute (2) Psychosis Current Visit: Yes Status: Acute Qualifiers: Psychosis type: unspecified psychosis type Qualified Code(s): F29 - Unspecified psychosis not due to a substance or known physiological condition
[2018-07-31] MEDS: ARICEPT PO SCH (22:17)
[2018-07-31] MEDS: PRAVACHOL PO SCH (22:17)
[2018-08-01] MEDS: APRESOLINE PO SCH ×3 (07:10→21:46)
[2018-08-01] MEDS: COREG PO SCH ×2 (09:42→21:47)
[2018-08-01] MEDS: NORVASC PO SCH (09:43)
[2018-08-01] MEDS: ELIQUIS PO SCH ×2 (09:44→21:50)
--- NOTE | 2018-08-01 13:49 | Progress Note ---
Subjective Date of service: 08/01/18 Principal diagnosis: dementia with behavioral disturbances, psychotic disorder no's Subjective Comment: Patient seen today and case discussed with the staff. I also met with the patient's family member again today and I have discussed the case with patient's and his son. Patient's reported to me that patient had the problems with the nightmares and hallucinations particularly about the [place] war. Patient is a [place] war and it seems like that he is having nightmares and flashbacks about the [place]. Patient'S reported that he was hallucinating which apparently she is referring to his nightmares about the past when patient was at home prior to coming here. Patient was asked about the nightmares and the flashbacks about the [place] but he could not recall much. He did admit that sometimes it does "flares up". patient is not in any acute distress at this point and he seems to be responding to the treatment quite well .I have reassured patient and his and his son. Mental status examination: patient is alert and was oriented to place and person. he still is not oriented to month or the year. concentration is fair. Memory: his memory shows short-term and intermediate memory impairment. his long-term memory seems to be grossly intact. He denies any hallucination. He denies any suicidal or homicidal ideation. He denies any side effects on her medications. Plan : As I have discussed with the patient his family and the staff that it seems appropriate to have patient start on some medications that would help him with the nightmares and hallucinations. Patient was reeducated about increasing the dose of Seroquel and possibility of adding the prazosin to help him with his nightmares risk. Risk and benefits of the medications discussed with the family and they agreed with that So the plan will be to increase the dose of Seroquel at night and also to add prazosin to help patients with the nightmares from the [place] war Assessment and Plan - Patient Problems (1) Schizophrenia Current Visit: Yes Status: Acute (2) Psychosis Current Visit: Yes Status: Acute Qualifiers: Psychosis type: unspecified psychosis type Qualified Code(s): F29 - Unspecified psychosis not due to a substance or known physiological condition
[2018-08-01] MEDS ORDERED: ARICEPT PO SCH (13:53)
--- NOTE | 2018-08-01 16:24 | Progress Note ---
Assessment and Plan Assessment and plan: Schizophrenia with psychosis Admitted to Geriatric Psych Unit Psych attending On niko Hughes. Continue Aricept. Hypertension BP stable Continue Coreg and hydralazine. Hyperlipidemia Pravachol Full code status History Interval history: Patient with schizophrenia, psychosis hospitalist service consulted for medical management of Hypertension, hypokalemia, No chest pain Hospitalist Physical - Physical exam Narrative exam: GEN: Not in acute distress, Morbid Obesity HEENT: Normocephalic, atraumatic, Neck: supple, No JVD Lungs: Clear to auscultation bilaterally, no crackles Abd:soft, non tender, non distended, normal bowel sounds Ext: No edema, no clubbing, no cyanosis Neuro:Awake,alert,oriented x 3, No confusion currently, moves all ext Skin:No rash - Constitutional Vitals: Temp Pulse Resp BP Pulse Ox 98.3 F 73 18 136/69 97 07/31/18 05:42 08/01/18 14:32 07/31/18 05:42 08/01/18 14:32 07/31/18 05:42 General appearance: Present: no acute distress Results - Labs CBC & Chem 7: 07/28/18 08:05 07/31/18 06:59 Labs: Laboratory Last Values WBC 7.7 K/mm3 (4.5-11.0) 07/28/18 08:05 RBC 5.07 M/mm3 (3.65-5.03) H 07/28/18 08:05 Hgb 15.6 gm/dl (11.8-15.2) H 07/28/18 08:05 Hct 46.3 % (35.5-45.6) H 07/28/18 08:05 MCV 91 fl (84-94) 07/28/18 08:05 MCH 31 pg (28-32) 07/28/18 08:05 MCHC 34 % (32-34) 07/28/18 08:05 RDW 14.3 % (13.2-15.2) 07/28/18 08:05 Plt Count 211 K/mm3 (140-440) 07/28/18 08:05 Lymph % (Auto) 35.8 % (13.4-35.0) H 07/28/18 08:05 [place] % (Auto) 7.6 % (0.0-7.3) H 07/28/18 08:05 Eos % (Auto) 2.4 % (0.0-4.3) 07/28/18 08:05 Baso % (Auto) 0.6 % (0.0-1.8) 07/28/18 08:05 Lymph # 2.8 K/mm3 (1.2-5.4) 07/28/18 08:05 [place] # 0.6 K/mm3 (0.0-0.8) 07/28/18 08:05 Eos # 0.2 K/mm3 (0.0-0.4) 07/28/18 08:05 Baso # 0.0 K/mm3 (0.0-0.1) 07/28/18 08:05 Seg Neutrophils % 53.6 % (40.0-70.0) 07/28/18 08:05 Seg Neutrophils # 4.1 K/mm3 (1.8-7.7) 07/28/18 08:05 Sodium 141 mmol/L (137-145) 07/31/18 06:59 Potassium 3.6 mmol/L (3.6-5.0) 07/31/18 06:59 Chloride 105.9 mmol/L (98-107) 07/31/18 06:59 Carbon Dioxide 23 mmol/L (22-30) 07/31/18 06:59 Anion Gap 16 mmol/L 07/31/18 06:59 BUN 19 mg/dL (9-20) 07/31/18 06:59 Creatinine 1.4 mg/dL (0.8-1.5) 07/31/18 06:59 Estimated GFR > 60 ml/min 07/31/18 06:59 BUN/Creatinine Ratio 14 % 07/31/18 06:59 Glucose 95 mg/dL (75-100) 07/31/18 06:59 Calcium 8.7 mg/dL (8.4-10.2) 07/31/18 06:59 Magnesium 2.00 mg/dL (1.7-2.3) 07/30/18 14:32 Total Bilirubin 0.60 mg/dL (0.1-1.2) 07/28/18 08:05 AST 30 units/L (5-40) 07/28/18 08:05 ALT 30 units/L (7-56) 07/28/18 08:05 Alkaline Phosphatase 100 units/L (35-129) 07/28/18 08:05 Total Protein 7.6 g/dL (6.3-8.2) 07/28/18 08:05 Albumin 3.8 g/dL (3.9-5) L 07/28/18 08:05 Albumin/Globulin Ratio 1.0 % 07/28/18 08:05 Urine Color Yellow (Yellow) 07/28/18 17:59 Urine Turbidity Clear (Clear) 07/28/18 17:59 Urine pH 5.0 (5.0-7.0) 07/28/18 17:59 Ur Specific [place] 1.011 (1.003-1.030) 07/28/18 17:59 Urine Protein 100 mg/dl mg/dL (Negative) 07/28/18 17:59 Urine Glucose (UA) Neg mg/dL (Negative) 07/28/18 17:59 Urine Ketones Neg mg/dL (Negative) 07/28/18 17:59 Urine Blood Sm (Negative) 07/28/18 17:59 Urine Nitrite Neg (Negative) 07/28/18 17:59 Urine Bilirubin Neg (Negative) 07/28/18 17:59 Urine Urobilinogen < 2.0 mg/dL (<2.0) 07/28/18 17:59 Ur Leukocyte Esterase Neg (Negative) 07/28/18 17:59 Urine WBC (Auto) 1.0 /HPF (0.0-6.0) 07/28/18 17:59 Urine RBC (Auto) 10.0 /HPF (0.0-6.0) 07/28/18 17:59 U Epithel Cells (Auto) < 1.0 /HPF (0-13.0) 07/28/18 17:59 Hyaline Casts 6 /LPF 07/28/18 17:59
[2018-08-01] MEDS: PRAVACHOL PO SCH (21:47)
[2018-08-01] MEDS: ARICEPT PO SCH (21:49)
[2018-08-01] MEDS: DESYREL PO PRN (21:50)
[2018-08-02] MEDS: APRESOLINE PO SCH ×3 (05:43→21:40)
[2018-08-02] MEDS: NORVASC PO SCH (09:46)
[2018-08-02] MEDS: ELIQUIS PO SCH ×2 (09:49→21:41)
[2018-08-02] MEDS: COREG PO SCH ×2 (09:52→21:41)
--- NOTE | 2018-08-02 12:23 | Progress Note ---
Subjective Date of service: 08/02/18 Principal diagnosis: dementia with behavioral disturbances, psychotic disorder no's Subjective Comment: This is the daily progress note on this patient. Patient seen today and case discussed with the staff. Patient was seen in the dining area watching the TV. He apparently was enjoying his TV shows and was not much interested in talking. He is grossly asymptomatic and did not offer any complaints to me and he told me that he is taking his medication awaits prescribed and he denies any side effects from the medications. Mental status examination: patient is alert and oriented to place and person. he's not oriented to month or the year as a [id number] he gets very frustrated when asked about the exact date. Otherwise ,patient is cooperative he denies any auditory or visual hallucination. Denies any depression or suicidal ideations. Patient denies any destructive thoughts. His judgment and insight is fair to limited. He shows some insight into his situation but because of the overt memory and cognitive functional impairment, he has difficulties to process. Plan: we will continue the current medications. He did not offer any signs or symptoms of PTSD to me today so we'll hold onto the prazosin and we will not start the medications until the patient's significantly complain about the symptoms. Patient will also be follow-up by the bodybuilder on his regular follow-up Assessment and Plan - Patient Problems (1) Schizophrenia Current Visit: Yes Status: Acute (2) Psychosis Current Visit: Yes Status: Acute Qualifiers: Psychosis type: unspecified psychosis type Qualified Code(s): F29 - Unspeci fied psychosis not due to a substance or known physiological condition
--- NOTE | 2018-08-02 12:47 | Progress Note ---
Assessment and Plan Assessment and plan: Schizophrenia with psychosis Admitted to Geriatric Psych Unit Psych attending On niko Hughes he says he feels better Dementia. Continue Aricept. Hypertension BP stable, most recent 134/70 Continue Coreg and hydralazine. Hyperlipidemia Pravachol Full code status Discussed with Dr. Gant, Psychiatrist History Interval history: Patient with schizophrenia, psychosis hospitalist service consulted for medical management of Hypertension, hypokalemia, No chest pain Hospitalist Physical - Physical exam Narrative exam: GEN: Not in acute distress, Morbid Obesity HEENT: Normocephalic, atraumatic, Neck: supple, No JVD Lungs: Clear to auscultation bilaterally, no crackles Abd:soft, non tender, non distended, normal bowel sounds Ext: No edema, no clubbing, no cyanosis Neuro:Awake,alert,oriented x 3, No confusion currently, moves all ext Skin:No rash - Constitutional Vitals: Temp Pulse Resp BP Pulse Ox 98.1 F 76 16 134/70 97 08/02/18 09:37 08/02/18 09:52 07/31/18 14:10 08/02/18 09:52 08/02/18 09:39 General appearance: Present: no acute distress Results - Labs CBC & Chem 7: 07/28/18 08:05 07/31/18 06:59 Labs: Laboratory Last Values WBC 7.7 K/mm3 (4.5-11.0) 07/28/18 08:05 RBC 5.07 M/mm3 (3.65-5.03) H 07/28/18 08:05 Hgb 15.6 gm/dl (11.8-15.2) H 07/28/18 08:05 Hct 46.3 % (35.5-45.6) H 07/28/18 08:05 MCV 91 fl (84-94) 07/28/18 08:05 MCH 31 pg (28-32) 07/28/18 08:05 MCHC 34 % (32-34) 07/28/18 08:05 RDW 14.3 % (13.2-15.2) 07/28/18 08:05 Plt Count 211 K/mm3 (140-440) 07/28/18 08:05 Lymph % (Auto) 35.8 % (13.4-35.0) H 07/28/18 08:05 [place] % (Auto) 7.6 % (0.0-7.3) H 07/28/18 08:05 Eos % (Auto) 2.4 % (0.0-4.3) 07/28/18 08:05 Baso % (Auto) 0.6 % (0.0-1.8) 07/28/18 08:05 Lymph # 2.8 K/mm3 (1.2-5.4) 07/28/18 08:05 [place] # 0.6 K/mm3 (0.0-0.8) 07/28/18 08:05 Eos # 0.2 K/mm3 (0.0-0.4) 07/28/18 08:05 Baso # 0.0 K/mm3 (0.0-0.1) 07/28/18 08:05 Seg Neutrophils % 53.6 % (40.0-70.0) 07/28/18 08:05 Seg Neutrophils # 4.1 K/mm3 (1.8-7.7) 07/28/18 08:05 Sodium 141 mmol/L (137-145) 07/31/18 06:59 Potassium 3.6 mmol/L (3.6-5.0) 07/31/18 06:59 Chloride 105.9 mmol/L (98-107) 07/31/18 06:59 Carbon Dioxide 23 mmol/L (22-30) 07/31/18 06:59 Anion Gap 16 mmol/L 07/31/18 06:59 BUN 19 mg/dL (9-20) 07/31/18 06:59 Creatinine 1.4 mg/dL (0.8-1.5) 07/31/18 06:59 Estimated GFR > 60 ml/min 07/31/18 06:59 BUN/Creatinine Ratio 14 % 07/31/18 06:59 Glucose 95 mg/dL (75-100) 07/31/18 06:59 Calcium 8.7 mg/dL (8.4-10.2) 07/31/18 06:59 Magnesium 2.00 mg/dL (1.7-2.3) 07/30/18 14:32 Total Bilirubin 0.60 mg/dL (0.1-1.2) 07/28/18 08:05 AST 30 units/L (5-40) 07/28/18 08:05 ALT 30 units/L (7-56) 07/28/18 08:05 Alkaline Phosphatase 100 units/L (35-129) 07/28/18 08:05 Total Protein 7.6 g/dL (6.3-8.2) 07/28/18 08:05 Albumin 3.8 g/dL (3.9-5) L 07/28/18 08:05 Albumin/Globulin Ratio 1.0 % 07/28/18 08:05 Urine Color Yellow (Yellow) 07/28/18 17:59 Urine Turbidity Clear (Clear) 07/28/18 17:59 Urine pH 5.0 (5.0-7.0) 07/28/18 17:59 Ur Specific [place] 1.011 (1.003-1.030) 07/28/18 17:59 Urine Protein 100 mg/dl mg/dL (Negative) 07/28/18 17:59 Urine Glucose (UA) Neg mg/dL (Negative) 07/28/18 17:59 Urine Ketones Neg mg/dL (Negative) 07/28/18 17:59 Urine Blood Sm (Negative) 07/28/18 17:59 Urine Nitrite Neg (Negative) 07/28/18 17:59 Urine Bilirubin Neg (Negative) 07/28/18 17:59 Urine Urobilinogen < 2.0 mg/dL (<2.0) 07/28/18 17:59 Ur Leukocyte Esterase Neg (Negative) 07/28/18 17:59 Urine WBC (Auto) 1.0 /HPF (0.0-6.0) 07/28/18 17:59 Urine RBC (Auto) 10.0 /HPF (0.0-6.0) 07/28/18 17:59 U Epithel Cells (Auto) < 1.0 /HPF (0-13.0) 07/28/18 17:59 Hyaline Casts 6 /LPF 07/28/18 17:59
[2018-08-02] MEDS: ARICEPT PO SCH (21:41)
[2018-08-02] MEDS: PRAVACHOL PO SCH (21:42)
[2018-08-03] MEDS: APRESOLINE PO SCH ×3 (06:00→22:20)
[2018-08-03] MEDS: NORVASC PO SCH (09:43)
[2018-08-03] MEDS: ELIQUIS PO SCH ×2 (09:44→22:22)
[2018-08-03] MEDS: COREG PO SCH ×2 (09:44→22:23)
--- NOTE | 2018-08-03 16:39 | Progress Note ---
Subjective Date of service: 08/03/18 Principal diagnosis: dementia with behavioral disturbances, psychotic disorder no's Subjective Comment: This is the daily progress note on this patient. Patient seen today and case discussed with staff and the treatment team. I met with the patient's and his daughter again today. Patient's is particularly concerned about patient's symptoms of PTSD where he gets flashbacks about the [place] and reportedly he also gets very irritable and short with his . They were concerned if the symptoms will come back to him when he comes home. Both patient's and his daughter would reassure and I have discussed the heading of medications: Prazosin to help this patient's with PTSD symptoms Patient is alert and oriented to place and person .he is not aware of the date or the month of the year. He is otherwise grossly asymptomatic. He denies auditory or visual hallucination. However he also expresses fear and anxiety about the flashbacks from the [place] era. He denies any destructive thoughts. Denies any suicidal or homicidal thoughts. Denies any side effects from medications. He sleeps and eats well. Earlier he had mild stomach pain but he denies any stomach pain right now. His vital signs are also stable. Plan: plan for this patient is to continue the current treatment regimen plus to add prazosin to help with the patient's PTSD symptoms .we will also monitor the dose of Seroquel and if necessary, we'll adjust the dose of Seroquel as well Assessment and Plan - Patient Problems (1) Schizophrenia Current Visit: Yes Status: Acute (2) Psychosis Current Visit: Yes Status: Acute Qualifiers: Psychosis type: unspecified psychosis type Qualified Code(s): F29 - Unspecified psychosis not due to a substance or known physiological condition
[2018-08-03] MEDS: PRAVACHOL PO SCH (22:20)
[2018-08-03] MEDS: MINIPRESS PO SCH (22:21)
[2018-08-03] MEDS: DESYREL PO PRN (22:21)
[2018-08-03] MEDS: ARICEPT PO SCH (22:22)
[2018-08-04] MEDS: APRESOLINE PO SCH ×3 (05:54→21:27)
[2018-08-04] MEDS: ELIQUIS PO SCH ×2 (09:37→21:27)
[2018-08-04] MEDS: NORVASC PO SCH (09:40)
[2018-08-04] MEDS: COREG PO SCH ×2 (09:40→21:26)
--- NOTE | 2018-08-04 18:05 | Progress Note ---
Subjective Date of service: 08/04/18 Principal diagnosis: dementia with behavioral disturbances, psychotic disorder no's Subjective Comment: This is the daily progress note on this patient. Patient seen today and case discussed with the staff. Patient is grossly asymptomatic and he was seen w atching the TV. He denies any active symptoms and his "hoping " to go home soon. Patient denies any side effects from medications and denies any destructive thoughts. Mental status examination :patient is alert and oriented to place and person. He was not able to tell the exact month or the year. he has difficulties with 3 words recall in 5 minutes. he has some memory difficulties with short-term and intermediate memory. he denies auditory or visual hallucinations. denies any suicidal or homicidal ideation. denies any side effects from medications Plan :plan for the patient is to continue the current treatment regimen .continue to monitor his vital signs blood test and as discussed earlier, discharge for this patient in a day or 2. The patient's family and staff has agreed upon and the patient has made significant progress Assessment and Plan - Patient Problems (1) Schizophrenia Current Visit: Yes Status: Acute (2) Psychosis Current Visit: Yes Status: Acute Qualifiers: Psychosis type: unspecified psychosis type Qualified Code(s): F29 - Unspecified psychosis not due to a substance or known physiological condition
[2018-08-04] MEDS: MINIPRESS PO SCH (21:25)
[2018-08-04] MEDS: PRAVACHOL PO SCH (21:26)
[2018-08-04] MEDS: ARICEPT PO SCH (21:28)
[2018-08-04] MEDS: DESYREL PO PRN (21:30)
[2018-08-05] MEDS: APRESOLINE PO SCH ×3 (07:25→21:23)
[2018-08-05] MEDS: COREG PO SCH ×2 (09:07→21:25)
[2018-08-05] MEDS: ELIQUIS PO SCH ×2 (09:08→21:25)
[2018-08-05] MEDS: NORVASC PO SCH (09:08)
--- NOTE | 2018-08-05 17:35 | Progress Note ---
Subjective Date of service: 08/05/18 Principal diagnosis: dementia with behavioral disturbances, psychotic disorder no's Subjective Comment: This is the daily progress note on this patient. Patient seen today and case discussed with staff. Patient was seen while he was being visited by his family members. Patient's and patient's son were there and I talked to all of them. Patient actually is doing very well. he has responded to treatment quite well and his family is very pleased with his improvement. Patient is grossly asymptomatic and he is in good spirits and is looking forward to be discharged home tomorrow as planned before. Patient is grossly asymptomatic. Denies any side effects from medication and he is tolerating his medications quite well. Mental history examination :patient is alert and oriented to place and person. He still is not aware of the exact month or the year, not aware of the exact date but all in all he is functioning well and he recognizes his family members. he recognizes place and he recognizes persons and he is able to answer the questions appropriately. He denies any auditory or visual hallucinations. He denies any destructive thoughts. Denies any suicidal or homicidal ideation. His judgment and insight is very well. He is able to understand these situations and he understood the need for the treatment. Plan :for the patient was to discharge patient home tomorrow with the recommendations the patient will have a follow-up at the [facility] because he is a his discharge medications prescription will be placed for this patient. Assessment and Plan - Patient Problems (1) Schizophrenia Current Visit: Yes Status: Acute (2) Psychosis Current Visit: Yes Status: Acute Qualifiers: Psychosis type: unspecified psychosis type Qualified Code(s): F29 - Unspecified psychosis not due to a substance or known physiological condition
[2018-08-05] MEDS: ARICEPT PO SCH (21:25)
[2018-08-05] MEDS: MINIPRESS PO SCH (21:26)
[2018-08-05] MEDS: PRAVACHOL PO SCH (21:27)
[2018-08-06] MEDS: APRESOLINE PO SCH ×2 (06:21→13:50)
[2018-08-06] MEDS: NORVASC PO SCH (10:16)
[2018-08-06] MEDS: COREG PO SCH (10:17)
[2018-08-06] MEDS: ELIQUIS PO SCH (10:18)
[2018-08-06 13:48] VITALS: BP 137/71
--- NOTE | 2018-08-06 16:25 | Discharge Summary ---
Providers - Providers Date of Admission: 07/27/18 19:53 Date of discharge: 08/06/18 Attending physician: NATE FORBES MD 07/27/18 18:30 Consult to Physician [CONS] Routine Comment: Notified on 07/29/18 at 1505 hrs. Consulting Provider: CHAYO VEGA Physician Instructions: Reason For Exam: medical h & p 07/30/18 13:16 Consult to Physician [CONS] Routine Comment: Consulting Provider: CHAYO VEGA Physician Instructions: Reason For Exam: Low potassium and high BUN Primary care physician: [employer] Hospitalization Reason for admission: pschosis , aggression, dementia Hospital course: Patient did better over the course of the treatment in the hospital .I had several meetings with the patient's family and I discussed the case with staff almost everyday. patient Seen by me every single day of his stay here at the hospital. Medications were adjusted and he responded very well to the medications at the time of discharge patient denied any hallucination denied any destructive thoughts. Did not exhibited any aggressive or violent behavior and he showed better insight into his situation Disposition: DC-01 TO HOME OR SELFCARE Allergies/Adverse Reactions: Allergies No Known Allergies Allergy (Unverified 06/29/15 13:23) Vital Signs: Last Vital Signs Temp 97.6 F 08/06/18 06:13 Pulse 72 08/06/18 13:50 Resp 18 08/06/18 13:41 BP 137/71 08/06/18 13:50 Pulse Ox 97 08/06/18 13:41 Last Lab: Laboratory Last Values WBC 7.7 K/mm3 (4.5-11.0) 07/28/18 08:05 RBC 5.07 M/mm3 (3.65-5.03) H 07/28/18 08:05 Hgb 15.6 gm/dl (11.8-15.2) H 07/28/18 08:05 Hct 46.3 % (35.5-45.6) H 07/28/18 08:05 MCV 91 fl (84-94) 07/28/18 08:05 MCH 31 pg (28-32) 07/28/18 08:05 MCHC 34 % (32-34) 07/28/18 08:05 RDW 14.3 % (13.2-15.2) 07/28/18 08:05 Plt Count 211 K/mm3 (140-440) 07/28/18 08:05 Lymph % (Auto) 35.8 % (13.4-35.0) H 07/28/18 08:05 Villalba % (Auto) 7.6 % (0.0-7.3) H 07/28/18 08:05 Eos % (Auto) 2.4 % (0.0-4.3) 07/28/18 08:05 Baso % (Auto) 0.6 % (0.0-1.8) 07/28/18 08:05 Lymph # 2.8 K/mm3 (1.2-5.4) 07/28/18 08:05 Villalba # 0.6 K/mm3 (0.0-0.8) 07/28/18 08:05 Eos # 0.2 K/mm3 (0.0-0.4) 07/28/18 08:05 Baso # 0.0 K/mm3 (0.0-0.1) 07/28/18 08:05 Seg Neutrophils % 53.6 % (40.0-70.0) 07/28/18 08:05 Seg Neutrophils # 4.1 K/mm3 (1.8-7.7) 07/28/18 08:05 Sodium 141 mmol/L (137-145) 07/31/18 06:59 Potassium 3.6 mmol/L (3.6-5.0) 07/31/18 06:59 Chloride 105.9 mmol/L (98-107) 07/31/18 06:59 Carbon Dioxide 23 mmol/L (22-30) 07/31/18 06:59 Anion Gap 16 mmol/L 07/31/18 06:59 BUN 19 mg/dL (9-20) 07/31/18 06:59 Creatinine 1.4 mg/dL (0.8-1.5) 07/31/18 06:59 Estimated GFR > 60 ml/min 07/31/18 06:59 BUN/Creatinine Ratio 14 % 07/31/18 06:59 Glucose 95 mg/dL (75-100) 07/31/18 06:59 Calcium 8.7 mg/dL (8.4-10.2) 07/31/18 06:59 Magnesium 2.00 mg/dL (1.7-2.3) 07/30/18 14:32 Total Bilirubin 0.60 mg/dL (0.1-1.2) 07/28/18 08:05 AST 30 units/L (5-40) 07/28/18 08:05 ALT 30 units/L (7-56) 07/28/18 08:05 Alkaline Phosphatase 100 units/L (35-129) 07/28/18 08:05 Total Protein 7.6 g/dL (6.3-8.2) 07/28/18 08:05 Albumin 3.8 g/dL (3.9-5) L 07/28/18 08:05 Albumin/Globulin Ratio 1.0 % 07/28/18 08:05 Urine Color Yellow (Yellow) 07/28/18 17:59 Urine Turbidity Clear (Clear) 07/28/18 17:59 Urine pH 5.0 (5.0-7.0) 07/28/18 17:59 Ur Specific Shorter 1.011 (1.003-1.030) 07/28/18 17:59 Urine Protein 100 mg/dl mg/dL (Negative) 07/28/18 17:59 Urine Glucose (UA) Neg mg/dL (Negative) 07/28/18 17:59 Urine Ketones Neg mg/dL (Negative) 07/28/18 17:59 Urine Blood Sm (Negative) 07/28/18 17:59 Urine Nitrite Neg (Negative) 07/28/18 17:59 Urine Bilirubin Neg (Negative) 07/28/18 17:59 Urine Urobilinogen < 2.0 mg/dL (<2.0) 07/28/18 17:59 Ur Leukocyte Esterase Neg (Negative) 07/28/18 17:59 Urine WBC (Auto) 1.0 /HPF (0.0-6.0) 07/28/18 17:59 Urine RBC (Auto) 10.0 /HPF (0.0-6.0) 07/28/18 17:59 U Epithel Cells (Auto) < 1.0 /HPF (0-13.0) 07/28/18 17:59 Hyaline Casts 6 /LPF 07/28/18 17:59 - Discharge Diagnoses (1) Psychosis Status: Acute Qualifiers: Psychosis type: unspecified psychosis type Qualified Code(s): F29 - Unspecified psychosis not due to a substance or known physiological condition Core Measure Documentation - Palliative Care Palliative Care/ Comfort Measures: Not Applicable Exam - Constitutional Vitals: Temp Pulse Resp BP Pulse Ox 97.6 F 72 18 137/71 97 08/06/18 06:13 08/06/18 13:50 08/06/18 13:41 08/06/18 13:50 08/06/18 13:41 Plan Activity: no restrictions, fall precautions Weight Bearing Status: Weight Bear as Tolerated Diet: low fat Follow up with: PRIMARY CARE, [Primary Care Provider] - 7 Days Prescriptions: Donepezil [Aricept] 10 mg PO QHS #30 tablet Prazosin [Minipress] 1 mg PO QHS #30 capsule QUEtiapine [SEROquel] 50 mg PO QHS #30 tablet hydrALAZINE [Apresoline TAB] 75 mg PO Q8HR #90 tablet amLODIPine [Norvasc] 10 mg PO QDAY #30 tablet QUEtiapine [SEROquel] 25 mg PO 1000,1700 #60 tablet Discharge Examination - Vital Signs Vital Signs: Vital Signs Temp Pulse Resp BP Pulse Ox 98.1 F 64 18 162/79 99 07/27/18 21:08 07/27/18 21:08 07/27/18 21:08 07/27/18 21:08 07/27/18 21:08 - Psychiatric Psychiatric: mood/affect appropriate - Additional Exam Additional Exam: This is the discharge summary on patient stated Gera Toribio. Patient was admitted on 07/27/2018 and he got discharged on 08/06/2018 to stop patient is seen today with his family and I discussed the case with the staff. Patient is in very good mood. He feels "much better " his family is also very happy and pleased to see his improvement. Patient denies any destructive thoughts and he denies any side effects from medications. Patient is alert and oriented to place and person could not tell me the exact month or the year but he was close he knew that it is it is close to July which is close to July. Patient denies any auditory or visual hallucination. Patient denies any depression or suicidal thoughts. Patient denies having any more Nightmares or flashbacks.'s Plan plan for the patient is to discharge him home with his family follow-up patient will have a follow-up with his with the [facility]. Discharge psychiatric diagnosis #1 psychotic disorder NOS #2 dementia with behavioral disturbances
== END 2018-08-06 17:15 | disposition home or self-care (01) | DRG 884 ==
LOC: UNDOADMIN 17:07 → 3A 17:07 → 5A 19:53
PROVIDERS: ADMIT Specialist; ATTEND Specialist
DX: F03.91 Unspecified dementia, unspecified severity, with behavioral disturbance (principal); I42.9 Cardiomyopathy, unspecified; F29 Unspecified psychosis not due to a substance or known physiological condition; F20.9 Schizophrenia, unspecified; E78.5 Hyperlipidemia, unspecified; I10 Essential (primary) hypertension; F41.9 Anxiety disorder, unspecified; E87.6 Hypokalemia; Z82.49 Family history of ischemic heart disease and other diseases of the circulatory system; Z95.0 Presence of cardiac pacemaker; Z79.899 Other long term (current) drug therapy; Z72.89 Other problems related to lifestyle
CPT/HCPCS: 36415; 80048; 80053; 81001; 83735; 85025; G0378; A9270-GY

== ENCOUNTER 2018-09-10 12:33 | Outpatient (CLI) | payer MEDICARE, OTHER ==
--- NOTE | 2018-09-10 15:00 | Ultrasound Report ---
ULTRASOUND RENAL BILATERAL HISTORY: Renal mass. TECHNIQUE: transabdominal ultrasound with color Doppler interrogation. COMPARISON: 05/12/17. FINDINGS: The right kidney measures 10.2 x 4.9 x 5.3cm. Right renal cortex: 1.2cm. The left kidney measures 9.6 x 5.6 x 4.8cm. Left renal cortex: 1.1cm. Scans of the kidneys show normal renal contours. There is normal central calyceal clustering and good preservation of the cortical thickness. There is no evidence of mass or hydronephrosis. Small simple renal cyst measuring 1 cm in the mid left kidney is unchanged. The previously described cyst in the superior right kidney is no longer identified. The views of the bladder and the region of the ureters appear normal. IMPRESSION: Unremarkable renal ultrasound. 1 cm left renal cyst.
== END 2018-09-10 12:34 | disposition home or self-care (01) ==
LOC: US 12:33
PROVIDERS: ATTEND Urology
DX: N28.1 Cyst of kidney, acquired (principal); E78.00 Pure hypercholesterolemia, unspecified; I10 Essential (primary) hypertension; M19.90 Unspecified osteoarthritis, unspecified site; Z87.891 Personal history of nicotine dependence
CPT/HCPCS: 76770

== ENCOUNTER 2019-04-06 13:00 | Outpatient (CLI) | payer MEDICARE, OTHER ==
--- NOTE | 2019-04-06 15:47 | Ultrasound Report ---
ULTRASOUND RENAL INDICATION / CLINICAL INFORMATION: N18.3 CHRONIC KIDNEY DISEASE STAGE 3 MODERATE. COMPARISON: Renal ultrasound from 09/10/2018 FINDINGS: RIGHT KIDNEY: Length = 8.9 cm. [normal > 9 cm] - Parenchymal Thickness = 1.1 cm. [normal > 1.5 cm] - Echogenicity: Slightly increased - Hydronephrosis: None. - Cyst or mass: Simple cyst in the upper pole measuring 1.1 cm - Stones: None seen. LEFT KIDNEY: Length = 9.4 cm. [normal > 9 cm] - Parenchymal Thickness = 1.0 cm. [normal > 1.5 cm] - Echogenicity: Increased - Hydronephrosis: None. - Cyst or mass: Simple cyst in the midpole measuring 1.1 cm - Stones: None seen. URINARY BLADDER: Prostatomegaly indenting the bladder base with no significant bladder wall thickenin g or mass. FREE FLUID: None. ADDITIONAL FINDINGS: None. IMPRESSION: 1. Bilateral echogenic kidneys, nonspecific but most often seen with medical renal disease. 2. Bilateral renal parenchymal thinning. 3. Simple bilateral renal cysts. 4. Prostatomegaly. Signer Name: Laron Mansfield MD Signed: 04/06/2019 3:43 PM Workstation Name: [employer]
== END 2019-04-06 13:01 | disposition home or self-care (01) ==
LOC: US 13:00
PROVIDERS: ATTEND Urology
DX: I12.9 Hypertensive chronic kidney disease with stage 1 through stage 4 chronic kidney disease, or unspecified chronic kidney disease (principal); N18.3 Chronic kidney disease, stage 3 (moderate); N40.1 Benign prostatic hyperplasia with lower urinary tract symptoms; N28.1 Cyst of kidney, acquired; I25.10 Atherosclerotic heart disease of native coronary artery without angina pectoris; I48.91 Unspecified atrial fibrillation; M19.90 Unspecified osteoarthritis, unspecified site; M10.9 Gout, unspecified; Z87.891 Personal history of nicotine dependence
CPT/HCPCS: 76770